=== PATIENT | female | born 1970 | race Caucasian/White ===

== ENCOUNTER 2016-03-16 10:42 | Emergency (ER) | payer OTHER ==
[~2016-03-16] VITALS: Ht 170.2 cm; Wt 105.5 kg
[~2016-03-16 10:42] MED LIST: ALPR-385 PO; CLC150 PO; IBUP-1050 PO; INSDGIPEN SC; LSN/20125 PO; NRN100 PO; NVLGIPEN SC; VNTHFA/IN INH
[2016-03-16 10:50] VITALS: TEMP 37.4; Ht 170.2 cm; Wt 105.5 kg
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
[2016-03-16 11:33] LABS: BASO % 0.7 %; BASO ABS # 0.09 K/uL (0-0.2); COMPLETE YES; EOS % 1.9 %; HEMATOCRIT 45.2 % (37-47); IG% 0.3 %; LYMPH % 23.1 %; LYMPH ABS # 2.89 K/uL (1.2-3.4); MEAN CELL VOLUME 79.4 fL (80-100); MEAN CORPUSCULAR HEMOGLOBIN 27.6 pg (25-34); MEAN CORPUSCULAR HGB CONC 34.7 g/dl (32-36); MONO % 4.5 %; NEUT % 69.5 %; PLATELET COUNT 309 K/uL (130-400); RED BLOOD COUNT 5.69 M/uL (4.2-5.4); WHITE BLOOD COUNT 12.53 K/uL (4.8-10.8)
[2016-03-16 11:58] LABS: ALT/SGPT 23 U/L (12-78); AST/SGOT 11 U/L (15-37); BLOOD UREA NITROGEN 10 mg/dl (7-18); BUN/CREATININE RATIO 14.6 (10-20); CALCIUM 10.2 mg/dl (8.5-10.1); CARBON DIOXIDE 24 mmol/L (21-32); CHLORIDE 106 mmol/L (98-107); CREATININE 0.71 mg/dl (0.60-1.20); GLUCOSE 202 mg/dl (70-99); POTASSIUM 4.2 mmol/L (3.5-5.1); SODIUM 140 mmol/L (136-145)
[2016-03-16 12:01] LABS: ALKALINE PHOSPHATASE 132 U/L (45-117)
[2016-03-16 12:11] LABS: ACETAMINOPHEN < 2 ug/ml (10-30)
[2016-03-16 12:18] LABS: MANUAL MICROSCOPIC REQUIRED? YES; URINE APPEARANCE CLEAR (CLEAR); URINE BILIRUBIN NEG (NEG); URINE COLOR YELLOW; URINE NITRITE NEG (NEG); URINE SPECIFIC GRAVITY >= 1.030 (1.000-1.030); UROBILINOGEN NEG (NEG)
[2016-03-16 12:20] LABS: REVIEW REQ? NO
[2016-03-16 12:40] LABS: URINE BACTERIA 1+ (NEG); URINE MUCUS PRESENT (NONE PRSENT); URINE RBC 0-4 /hpf (0-4)
[2016-03-16 12:42] LABS: ZZUR CULT IF INDIC CLEAN CATCH YES
[2016-03-16 13:40] LABS: BENZODIAZEPINE, URINE NEG (NEG); COCAINE,URINE NEG (NEG); PHENCYCLIDINE, URINE NEG (NEG)
[2016-03-16 16:30] VITALS: BP 128/84; PULSE 86; O2SAT 95
[2016-03-22 11:40] LABS: SYNTHETIC CANNABINOIDS QL URIN NEGATIVE (Negative)
== END 2016-03-16 17:00 ==
LOC: C.EDB 10:47 → C.EDA 17:00
DX: R45.851 Suicidal ideations (principal); T43.8X2A Poisoning by other psychotropic drugs, intentional self-harm, initial encounter; T45.0X2A Poisoning by antiallergic and antiemetic drugs, intentional self-harm, initial encounter; T38.3X2A Poisoning by insulin and oral hypoglycemic [antidiabetic] drugs, intentional self-harm, initial encounter; J45.909 Unspecified asthma, uncomplicated; L30.9 Dermatitis, unspecified; L40.9 Psoriasis, unspecified; F17.200 Nicotine dependence, unspecified, uncomplicated; Z82.49 Family history of ischemic heart disease and other diseases of the circulatory system; Z84.1 Family history of disorders of kidney and ureter; Z82.0 Family history of epilepsy and other diseases of the nervous system

== ENCOUNTER 2016-05-21 03:50 | Inpatient (IN) | payer OTHER ==
[~2016-05-21] VITALS: Ht 170.2 cm; Wt 111.9 kg
[~2016-05-21 03:50] MED LIST changes: -CLC150 PO
[2016-05-21] MEDS ORDERED: KETOROLAC TROMETHAMINE 30 MG/ML VIAL IV STA (04:22)
--- NOTE | 2016-05-21 04:32 | EMERGENCY ROOM VISIT NOTE ---
History Report prepared by Cindy: Karina Moran Under the Supervision of: Dr. Camilla Champagne D.O. First contact with patient: 04:07 Chief Complaint: SKIN PROBLEM Stated Complaint: SKIN PROBLEM History of Present Illness The patient is a 45 year old female who presents to the Emergency Room with complaints of constant skin problem beginning a few days ago. The patient states that she has had 3 episodes of cellulitis previously and today it is worse than it has been before. Today she complains of head itchiness, neck itchiness and redness, heat, and leg pain that she believes may be diabetic neuropathy. She notes that 2 days ago her doctor called in Clindamycin for the infection and they told her to come in here if it worsened. The patient reports that controlling her blood sugar with the infection has been difficult. Source of History: patient Onset: a few days ago Position: head Quality: other (redness, itchiness) Timing: constant Note: Pt notes redness, itchiness, heat, leg pain. Review of Systems See HPI for pertinent positives & negatives. A total of 10 systems reviewed and were otherwise negative. Past Medical & Surgical Medical Problems: (1) Asthma (2) Eczema (3) Psoriasis Family History Gallbladder disease Heart disease Hypertension Kidney disease Kidney stones Seizures Social History Smoking Status: Current Every Day Smoker Alcohol Use: occasionally Drug Use: none Marital Status: single Occupation Status: unemployed Current/Historical Medications Scheduled Clindamycin HCl (Clindamycin HCl), 2 CAP PO TID Fluoxetine (Prozac), 40 MG PO DAILY Insulin Aspart (Novolog Flexpen), 6 UNITS SC AC Insulin Glargine (Lantus Solostar), 20 UNIT SC QAM Trazodone Hcl (Trazodone), 100 MG PO HS Scheduled PRN Albuterol Hfa (Ventolin Hfa), 2 PUFFS INH QID PRN for Asthma Symptoms Alprazolam (Xanax), 1 MG PO TID PRN for Anxiety Ibuprofen (Advil), 600-800 MG PO Q8 PRN for Pain or Fever Allergies Coded Allergies: Avocado (Verified Allergy, Severe, SWELLING OF THROAT,ITCHING, 05/21/16) Banana (Verified Allergy, Severe, THROAT SWELLING,ITCHING, 05/21/16) Latex1 -Allergic Contact Dermititis (Verified Adverse Reaction, Mild, RASH ,ITCHING, 05/21/16) Physical Exam Vital Signs Date Time Temp Pulse Resp B/P Pulse Ox O2 Delivery O2 Flow Rate FiO2 05/21/16 08:01 87 16 123/97 97 Room Air 05/21/16 06:35 94 18 150/86 96 Room Air 05/21/16 05:15 84 18 134/99 96 Room Air 05/21/16 03:53 36.8 98 18 153/80 97 Room Air Physical Exam HEENT: Head - open wound to the top of the head, multiple areas of erythema about the face and the scalp. Multiple areas of cellulitis about the scalp and the forehead Pupils are equal, round, and reactive to light. Extraocular eye muscles are intact, and sclera are anicteric. Nose - moist nasal mucosa without discharge. Mouth - moist buccal mucosa. Oropharynx is nonerythematous and there is no tonsillar exudate or edema noted. Neck: Supple; no JVD, nuchal rigidity, cervical lymphadenopathy. Heart: Regular rate and rhythm. There is a normal S1 and S2 with no murmurs, clicks, or gallops appreciated. Lungs: Clear to auscultation bilaterally with no wheezes, rales, or rhonchi. Abdomen: Soft, completely nontender, nondistended, with good bowel sounds. There are no palpable pulsatile masses or hepatosplenomegaly. There is no guarding, rigidity, or rebound noted. Extremities: No evidence of cyanosis, clubbing, or edema. There are easily palpable peripheral pulses. Skin: warm and dry with good turgor and no rashes. Medical Decision & Procedures Laboratory Results 05/21/16 04:35 Red Blood Count 5.92, Mean Corpuscular Volume 79.4, Mean Corpuscular Hemoglobin 27.4, Mean Corpuscular Hemoglobin Concent 34.5, Mean Platelet Volume 10.3, Neutrophils (%) (Auto) 81.7, Lymphocytes (%) (Auto) 12.0, Monocytes (%) (Auto) 5.3, Eosinophils (%) (Auto) 0.2, Basophils (%) (Auto) 0.3, Neutrophils # (Auto) 11.31, Lymphocytes # (Auto) 1.66, Monocytes # (Auto) 0.73, Eosinophils # (Auto) 0.03, Basophils # (Auto) 0.04 05/21/16 04:35 Test 05/21/16 04:35 White Blood Count 13.84 K/uL (4.8-10.8) Red Blood Count 5.92 M/uL (4.2-5.4) Hemoglobin 16.2 g/dL (12.0-16.0) Hematocrit 47.0 % (37-47) Mean Corpuscular Volume 79.4 fL (80-100) Mean Corpuscular Hemoglobin 27.4 pg (25-34) Mean Corpuscular Hemoglobin Concent 34.5 g/dl (32-36) Platelet Count 228 K/uL (130-400) Mean Platelet Volume 10.3 fL (7.4-10.4) Neutrophils (%) (Auto) 81.7 % Lymphocytes (%) (Auto) 12.0 % Monocytes (%) (Auto) 5.3 % Eosinophils (%) (Auto) 0.2 % Basophils (%) (Auto) 0.3 % Neutrophils # (Auto) 11.31 K/uL (1.4-6.5) Lymphocytes # (Auto) 1.66 K/uL (1.2-3.4) Monocytes # (Auto) 0.73 K/uL (0.11-0.59) Eosinophils # (Auto) 0.03 K/uL (0-0.5) Basophils # (Auto) 0.04 K/uL (0-0.2) RDW Standard Deviation 42.2 fL (36.4-46.3) RDW Coefficient of Variation 14.6 % (11.5-14.5) Immature Granulocyte % (Auto) 0.5 % Immature Granulocyte # (Auto) 0.07 K/uL (0.00-0.02) Prothrombin Time 9.9 SECONDS (9.0-12.0) Prothromb Time International Ratio 0.9 (0.9-1.1) Activated Partial Thromboplast Time 34.9 SECONDS (21.0-31.0) Partial Thromboplastin Ratio 1.3 Anion Gap 9.0 mmol/L (3-11) Est Creatinine Clear Calc Drug Dose 112.2 ml/min Estimated GFR () 101.8 Estimated GFR (Non- 87.8 BUN/Creatinine Ratio 21.3 (10-20) Bedside Lactic Acid Venous 1.03 mmol/L (0.90-1.70) Calcium Level 9.8 mg/dl (8.5-10.1) Total Bilirubin 0.3 mg/dl (0.2-1) Aspartate Amino Transf (AST/SGOT) 18 U/L (15-37) Alanine Aminotransferase (ALT/SGPT) 38 U/L (12-78) Alkaline Phosphatase 126 U/L (45-117) Total Protein 7.8 gm/dl (6.4-8.2) Albumin 3.4 gm/dl (3.4-5.0) Globulin 4.4 gm/dl (2.5-4.0) Albumin/Globulin Ratio 0.8 (0.9-2) Laboratory results per my review. Medications Administered Medications (Trade) Dose Ordered Sig/Candelaria Route Start Time Stop Time Status Last Admin Dose Admin Ketorolac Tromethamine (Toradol Inj) 30 mg NOW STAT IV 05/21/16 04:22 05/21/16 04:23 DC 05/21/16 04:53 30 MG Piperacillin Sod/ Tazobactam Sod (Zosyn Iv) 4.5 gm NOW STAT IV 05/21/16 05:05 05/21/16 05:07 DC 05/21/16 05:14 4.5 GM Vancomycin HCl (Vancomycin 1gm/ 270ml Nss) 1 gm STK-MED ONCE .ROUTE 05/21/16 05:28 05/21/16 05:31 DC 05/21/16 05:51 1 GM Morphine Sulfate (MoRPHine SULFATE INJ) 4 mg NOW STAT IV 05/21/16 05:55 05/21/16 05:56 DC 05/21/16 06:35 4 MG Ondansetron HCl 4 mg 4 mg NOW STAT IV 05/21/16 05:55 05/21/16 05:56 DC 05/21/16 06:34 4 MG Sodium Chloride (Nss 1000ml) 1,000 ml @ 125 mls/hr Q8H IV 05/21/16 08:45 06/20/16 08:44 05/21/16 18:24 125 MLS/HR Ketorolac Tromethamine (Toradol Inj) 30 mg Q6H PRN IV 05/21/16 08:45 05/26/16 08:44 05/21/16 17:03 30 MG Procedure 0422: Toradol Inj 30mg IV. 0505: Vancomycin HCl 1000mg/Sodium Chloride 270ml @ 125mls/hr IV, Zosyn IV 4.5gm IV. 0528: Vancomycin HCl 1gm IV. 0555: Zofran Inj 4mg IV, Morphine Sulfate 4mg IV. ED Course 0407: Past medical records reviewed. The patient was evaluated in room B5. A complete history and physical exam was performed. A septic protocol was performed. 0422: Toradol Inj 30mg IV. 0505: Vancomycin HCl 1000mg/Sodium Chloride 270ml @ 125mls/hr IV, Zosyn IV 4.5gm IV. 0610: The patient is resting currently. I reviewed the results with her. 0707: Discussed the patient's case with Cassidy Saravia PA-C of [facility]. The patient will be evaluated for further management. 0711: The patient is pain-free but hungry. 0714: Upon reevaluation, I discussed findings and results with the patient. She verbalized agreement of the treatment plan. I spoke with Baljeet of the [facility] Hospitalist Service. The patient will be evaluated for further management and care. Medical Decision The patient is a 45 year old female who presents to the ED with skin issues. Differential diagnosis includes scalp cellulitis, exacerbation of eczema, sepsis , wound infection. LABS: WBC 13.8 Hemoglobin 16.2 Hematocrit 47 81% neutrophils lactic acid 1.0 294 glucose normal renal function and LFTs Normal Coags This is a 45-year-old female patient with a history of scalp and facial cellulitis over the past one year. The patient has required one previous admission to the hospital for this. She contacted her infectious disease doctor a couple days ago stating that her symptoms were returning. They called in a prescription for clindamycin. The patient has been taking that in the symptoms have worsened. The patient cut her hair off so that she could see the cellulitis a bit better on her scalp. Since the patient is failing outpatient therapy, I have started her on IV antibiotics. The patient required IV analgesia for the discomfort in her head. I discussed the case with the [facility] hospitalist and they will evaluate for further management. Consults Time Called: [phone] Consulting Physician: Cassidy Saravia PA-C - [facility] Returned Call: [phone] Discussed the patient's case. The patient will be evaluated for further management. Impression Primary Impression: Facial cellulitis Additional Impression: Diabetes mellitus with hyperglycemia Scribe Attestation The scribe's documentation has been prepared under my direction and personally reviewed by me in its entirety. I confirm that the note above accurately reflects all work, treatment, procedures, and medical decision making performed by me. Departure Information Dispostion Being Evaluated By Hospitalist Referrals No Doctor, Assigned (PCP) Patient Instructions My [facility] Problem Qualifiers
[2016-05-21 04:57] LABS: BASO % 0.3 %; BASO ABS # 0.04 K/uL (0-0.2); COMPLETE YES; EOS % 0.2 %; IG% 0.5 %; LYMPH ABS # 1.66 K/uL (1.2-3.4); MEAN CELL VOLUME 79.4 fL (80-100); MEAN CORPUSCULAR HEMOGLOBIN 27.4 pg (25-34); MEAN CORPUSCULAR HGB CONC 34.5 g/dl (32-36); MEAN PLATELET VOLUME 10.3 fL (7.4-10.4); MONO % 5.3 %; NEUT % 81.7 %; PLATELET COUNT 228 K/uL (130-400); RED BLOOD COUNT 5.92 M/uL (4.2-5.4); WHITE BLOOD COUNT 13.84 K/uL (4.8-10.8)
[2016-05-21 05:02] LABS: INR 0.9 (0.9-1.1); PARTIAL THROMBOPLASTIN RATIO 1.3; PROTHROMBIN TIME (PATIENT) 9.9 SECONDS (9.0-12.0)
[2016-05-21] MEDS ORDERED: CLIN1CAP51 PO (05:02)
[2016-05-21] MEDS ORDERED: FLUO40CA8 PO (05:02)
[2016-05-21] MEDS ORDERED: TRAZ100T29 PO (05:02)
[2016-05-21] MEDS ORDERED: VANCOMYCIN INJ 1,000 MG in SODIUM CHLORIDE 0.9% 250ML 250 ML IV STA (05:05)
[2016-05-21] MEDS ORDERED: PIPERACILLIN/TAZOBACTAM 4.5 GM/100ML D5W IV STA (05:05)
[2016-05-21 05:17] LABS: BUN/CREATININE RATIO 21.3 (10-20); CALCIUM 9.8 mg/dl (8.5-10.1); CREATININE 0.8 mg/dl (0.60-1.20); POTASSIUM 4.2 mmol/L (3.5-5.1)
[2016-05-21 05:20] LABS: ALB/GLOB RATIO 0.8 (0.9-2)
[2016-05-21] MEDS ORDERED: VANCOMYCIN 1GM/270ML NSS ONE (05:28)
[2016-05-21] MEDS ORDERED: MoRPHine SULFATE 4 MG/ML 1 ML CARP\\VIAL IV STA (05:55)
[2016-05-21] MEDS ORDERED: ONDANSETRON INJ 2 MG/ML 2 ML VIAL IV STA (05:55)
[2016-05-21] MEDS ORDERED: ALBUTEROL HFA 8 GM INHALER INH PRN (08:45)
[2016-05-21] MEDS ORDERED: ALUMINUM/MAGNESIUM/SIMETH (MAALOX MAX) 30 ML UDC PO PRN (08:45)
[2016-05-21] MEDS ORDERED: MAGNESIUM HYDROXIDE SUSP 30 ML UDC PO PRN (08:45)
[2016-05-21] MEDS ORDERED: ONDANSETRON INJ 2 MG/ML 2 ML VIAL IV PRN (08:45)
[2016-05-21] MEDS ORDERED: POLYETHYLENE (MIRALAX) 17 GM PACK PO PRN (08:45)
[2016-05-21] MEDS ORDERED: MoRPHine SULFATE 2 MG/ML CARP IV PRN (08:45)
[2016-05-21] MEDS ORDERED: ALPRAZOLAM 0.5 MG TAB PO PRN (08:45)
[2016-05-21] MEDS ORDERED: ACETAMINOPHEN 325 MG TAB PO PRN (08:45)
[2016-05-21] MEDS ORDERED: CLINDAMYCIN HCL 150 MG CAP PO SCH (09:00)
[2016-05-21] MEDS ORDERED: PHARMACY GLYCEMIC MGMT CONSULT SCH (09:04)
--- NOTE | 2016-05-21 09:11 | History and Physical ---
History & Physical Date & Time of Service: May 21, 2016 at 08:52 Chief Complaint: Skin Problem Primary Care Physician: No Doctor, Assigned History of Present Illness Source: patient, clinic records, hospital records Patient is a pleasant 45 y/o female, with PMHx of T2DM, anxiety/depression, asthma, and recurrent facial/head cellulitis, who reported to the ED because of worsening/increasing pain of facial/head cellulitis. Recurrent head/facial cellulitis started in September of 2015. At that time, she was treated outpatient with oral antibiotics. In December 2015, patient was admitted to the hospital; she was treated w/ IV Vancomycin + Zosyn x1 day, then transitioned to oral Clindamycin x2 weeks at discharge. According to records, she was to follow up with ID 2 weeks after discharge, but did not. On 05/19, patient was seen by ID, Jessica Martinez, and placed on Clindamycin 300 mg PO TID. Patient states she has been taking her medication as prescribed. However, she believes cellulitis is spreading. Additionally, patient has now started to experience increased pain. Patient was treated with Morphine 4 mg IV and Toradol 30 mg IV in ED, with continued complaints of pain. Patient states she is unsure of the cause for her recurrent infection. She does admit to eczema. +pruritus of scalp. Patient denies any fever, chills, sweats, lightheadedness, dizziness, vision changes, CP, palpitations, edema, SOB, wheezing, cough, abdominal pain, nausea, vomiting, diarrhea, urinary symptoms, melena, numbness/tingling, weakness, muscle/joint pain, anxiety/depression, active bleeding. Past Medical/Surgical History Medical Problems: 1. Asthma 2. Eczema 3. T2DM 4. Recurrent head/facial cellulitis Family History Gallbladder disease Heart disease Hypertension Kidney disease Kidney stones Seizures Social History Smoking Status: Current Every Day Smoker Drug Use: none Marital Status: single Occupational Status: unemployed Immunizations History of Influenza Vaccine: Unknown History of Tetanus Vaccine?: Unknown History of Pneumococcal: Unknown History of Hepatitis B Vaccine: Unknown Multi-Drug Resistant Organisms History of MDRO: No Allergies Coded Allergies: Avocado (Verified Allergy, Severe, SWELLING OF THROAT,ITCHING, 05/21/16) Banana (Verified Allergy, Severe, THROAT SWELLING,ITCHING, 05/21/16) Latex1 -Allergic Contact Dermititis (Verified Adverse Reaction, Mild, RASH ,ITCHING, 05/21/16) Home Medications Scheduled Clindamycin HCl (Clindamycin HCl), 2 CAP PO TID Fluoxetine (Prozac), 40 MG PO DAILY Insulin Aspart (Novolog Flexpen), 6 UNITS SC AC Insulin Glargine (Lantus Solostar), 20 UNIT SC QAM Trazodone Hcl (Trazodone), 100 MG PO HS Scheduled PRN Albuterol Hfa (Ventolin Hfa), 2 PUFFS INH QID PRN for Asthma Symptoms Alprazolam (Xanax), 1 MG PO TID PRN for Anxiety Ibuprofen (Advil), 600-800 MG PO Q8 PRN for Pain or Fever Physical Exam Vital Signs Date Time Temp Pulse Resp B/P Pulse Ox O2 Delivery O2 Flow Rate FiO2 05/21/16 08:01 87 16 123/97 97 Room Air 05/21/16 06:35 94 18 150/86 96 Room Air 05/21/16 05:15 84 18 134/99 96 Room Air 05/21/16 03:53 36.8 98 18 153/80 97 Room Air General Appearance: no apparent distress, + obese Head: atraumatic, + pertinent finding (noted lesion to posterior center scalp and lateral mid-left scalp- scabbed over, no obvious warmth or drainage; noted mild erythema of mid-lateral right forehead) Eyes: normal inspection, PERRL ENT: hearing grossly normal Neck: supple Respiratory/Chest: lungs clear, no respiratory distress, no accessory muscle use Cardiovascular: regular rate, rhythm Abdomen/GI: normal bowel sounds, non tender, soft Back: normal inspection Extremities/Musculoskelatal: no calf tenderness, no pedal edema Neurologic/Psych: alert, normal mood/affect, oriented x 3 Skin: normal color, warm/dry, no rash Diagnostics Laboratory Results Results Past 24 Hours Test 05/21/16 04:35 Range/Units White Blood Count 13.84 4.8-10.8 K/uL Red Blood Count 5.92 4.2-5.4 M/uL Hemoglobin 16.2 12.0-16.0 g/dL Hematocrit 47.0 37-47 % Mean Corpuscular Volume 79.4 80-100 fL Mean Corpuscular Hemoglobin 27.4 25-34 pg Mean Corpuscular Hemoglobin Concent 34.5 32-36 g/dl Platelet Count 228 130-400 K/uL Mean Platelet Volume 10.3 7.4-10.4 fL Neutrophils (%) (Auto) 81.7 % Lymphocytes (%) (Auto) 12.0 % Monocytes (%) (Auto) 5.3 % Eosinophils (%) (Auto) 0.2 % Basophils (%) (Auto) 0.3 % Neutrophils # (Auto) 11.31 1.4-6.5 K/uL Lymphocytes # (Auto) 1.66 1.2-3.4 K/uL Monocytes # (Auto) 0.73 0.11-0.59 K/uL Eosinophils # (Auto) 0.03 0-0.5 K/uL Basophils # (Auto) 0.04 0-0.2 K/uL RDW Standard Deviation 42.2 36.4-46.3 fL RDW Coefficient of Variation 14.6 11.5-14.5 % Immature Granulocyte % (Auto) 0.5 % Immature Granulocyte # (Auto) 0.07 0.00-0.02 K/uL Prothrombin Time 9.9 9.0-12.0 SECONDS Prothromb Time International Ratio 0.9 0.9-1.1 Activated Partial Thromboplast Time 34.9 21.0-31.0 SECONDS Partial Thromboplastin Ratio 1.3 Sodium Level 132 136-145 mmol/L Potassium Level 4.2 3.5-5.1 mmol/L Chloride Level 100 98-107 mmol/L Carbon Dioxide Level 23 21-32 mmol/L Anion Gap 9.0 3-11 mmol/L Blood Urea Nitrogen 17 7-18 mg/dl Creatinine 0.80 0.60-1.20 mg/dl Est Creatinine Clear Calc Drug Dose 112.2 ml/min Estimated GFR () 101.8 Estimated GFR (Non- 87.8 BUN/Creatinine Ratio 21.3 10-20 Random Glucose 294 70-99 mg/dl Bedside Lactic Acid Venous 1.03 0.90-1.70 mmol/L Calcium Level 9.8 8.5-10.1 mg/dl Total Bilirubin 0.3 0.2-1 mg/dl Aspartate Amino Transf (AST/SGOT) 18 15-37 U/L Alanine Aminotransferase (ALT/SGPT) 38 12-78 U/L Alkaline Phosphatase 126 45-117 U/L Total Protein 7.8 6.4-8.2 gm/dl Albumin 3.4 3.4-5.0 gm/dl Globulin 4.4 2.5-4.0 gm/dl Albumin/Globulin Ratio 0.8 0.9-2 Microbiology Results 05/21/16 Blood Culture, Received Pending 05/21/16 Blood Culture, Received Pending Impression Assessment and Plan 45 y/o female, with PMHx of T2DM, anxiety/depression, asthma, and recurrent facial/head cellulitis, who reported to the ED because of worsening/increasing pain of facial/head cellulitis: Recurrent head/facial cellulitis: - Admit med/surg - IV Vancomycin + Zosyn x1 dose in ED. - Continue Clindamycin 300 mg TID (started on 05/19 by ID) until seen by ID - IV Morphine + Toradol PRN for pain control - BCx pending - Consult ID, appreciate recommendations - Follow CBC/PRP T2DM: - ha1c in 12/2015- 11.5%. Recheck ha1c - Continue Lantus 20 u QAM - BSG ACHS w/ sliding insulin scale - Consult pharmacy for glycemic management Asthma: Continue home inhalers Anxiety/Depression: - Continue Prozac 40 mg PO daily and Xanax 1 mg PO TID PRN - Follows w/ Dr. Zamorano Insomnia: Continue Trazodone 100 mg PO HS GI Prophylaxis: Maalox PRN, IV Zofran PRN, Colace and/or Milk of Mag PRN DVT prophylaxis: Lovenox 40 mg SQ q24 hrs, JON and SCDs Code Status: LEVEL I, FULL Dispo: From home. No discharge needs anticipated I personally evaluated this patient and performed a physical exam. I reviewed the orders. I read this note completed by Cassidy Garcia PA-C and agree with the contents in entirety. The patients headache and neck pain seemed out of context to the degree of irritation from the cellulitis. I do see that she had a CT scan of the head within 2 months. This finding prompted me to order an MRI of the Brain. Level of Care Med/Surg Resuscitation Status FULL RESUSCITATION VTE Prophylaxis VTE Risk Assessment Done? Y/N: Yes Risk Level: Low Given or contraindicated: Enoxaparin (Lovenox)SQ, T.E.D. Stockings, SCD's
[2016-05-21 09:30] VITALS: BP 122/76; PULSE 99; TEMP 37.7; O2SAT 95; O2SAT 96; BMI 38.6
[2016-05-21] MEDS: KETOROLAC TROMETHAMINE 30 MG/ML VIAL IV PRN ×2 (10:04→17:03)
[2016-05-21] MEDS: SODIUM CHLORIDE 0.9% 1000ML 1,000 ML IV SCH ×2 (10:05→18:24)
[2016-05-21] MEDS ORDERED: CLINDAMYCIN IV 300 MG in DEXTROSE 5% 50ML 50 ML IV SCH (10:30)
[2016-05-21] MEDS: FLUOXETINE HCL 20 MG CAP PO SCH (11:24)
[2016-05-21] MEDS: ENOXAPARIN 40 MG/0.4 ML SYR SQ SCH (11:25)
[2016-05-21] MEDS: INSULIN ASPART 100 UNITS/ML 3 ML PEN SC SCH ×3 (12:42→20:36)
[2016-05-21] MEDS: INSULIN GLARGINE SOLOSTAR 100 UNITS/ML 3 ML PEN SC SCH (12:43)
[2016-05-21] MEDS: HYDROmorphone INJ 2 MG/ML SYR/VIAL IV PRN ×2 (13:23→18:23)
[2016-05-21] MEDS: DAPTOmycin IV 500 MG in SODIUM CHLORIDE 0.9% 50ML 50 ML IV SCH (14:44)
[2016-05-21 15:39] VITALS: BP 124/90; PULSE 88; TEMP 36.6; O2SAT 93
[2016-05-21] MEDS ORDERED: LORAZEPAM INJ 0.5 MG in SYRINGE 0.75 ML IV PRN (15:45)
--- NOTE | 2016-05-21 15:58 | Pharmacy Progress Note ---
Glycemic Control Intl Consult Date of Service May 21, 2016. Scope Glycemic Pharmacist consulted by HARRIETT Valente on 05/21/16 for glycemic control and to write orders per [facility] inpatient glycemic control protocol Objective Weight (Kilograms): 111.900 Accuchecks BSG (last 24hrs): Test 05/21/16 04:35 05/21/16 11:24 Random Glucose 294 mg/dl (70-99) Bedside Glucose 242 mg/dl (70-90) Laboratory Data (last 24hrs) Test 05/21/16 04:35 Anion Gap 9.0 mmol/L BUN/Creatinine Ratio 21.3 Blood Urea Nitrogen 17 mg/dl Creatinine 0.80 mg/dl Potassium Level 4.2 mmol/L Sodium Level 132 mmol/L White Blood Count 13.84 K/uL Red Blood Count 5.92 M/uL Hemoglobin 16.2 g/dL Hematocrit 47.0 % Mean Corpuscular Volume 79.4 fL Mean Corpuscular Hemoglobin 27.4 pg Mean Corpuscular Hemoglobin Concent 34.5 g/dl Platelet Count 228 K/uL Mean Platelet Volume 10.3 fL Neutrophils (%) (Auto) 81.7 % Lymphocytes (%) (Auto) 12.0 % Monocytes (%) (Auto) 5.3 % Eosinophils (%) (Auto) 0.2 % Basophils (%) (Auto) 0.3 % Neutrophils # (Auto) 11.31 K/uL Lymphocytes # (Auto) 1.66 K/uL Monocytes # (Auto) 0.73 K/uL Eosinophils # (Auto) 0.03 K/uL Basophils # (Auto) 0.04 K/uL Recent Pertinent Medications Outpatient Anti-diabetic Regimen: * Lantus 20 units qam, Novolog 6 units before each meal * A1c = pending 05/22/16 The patient is currently receiving: * Basal insulin: Lantus 20 units every am, today's dose given later than usual due to admission * Correctional Insulin: Novolog Correction per scale ACHS Goal Range: Low 140 mg/dL - High 180 mg/dL Correction Factor: 30 mg/dL/unit * Prandial insulin: Per carb ratio of 1 unit per 9 grams CHO consumed * Oral Agents: none Risk Factors for Insulin Resistance: * Steroids: no * Infection: L ear cellulitis, on daptomycin (had single doses of Zosyn, vancomycin, clindamycin) * Pressors: no * IVF: NS @125 ml/hr * Recent Surgery: no * Diet: type 2 diabetic AHA * Mechanical Ventilation: no Assessment & Plan ASSESSMENT: * ADA & AACE recommend a goal blood sugar range 140-180 mg/dl for the majority of critically ill & non-critically ill patients. However, more stringent targets may be selected in individual cases. * 45 yo type 2 diabetic, A1c pending to assess recent glycemic control. Will continue home dose of Lantus, add Novolog correction and carb ratio based on her estimated daily dose. Will decrease goal range for non-critical, non-ICU patient. Will reassess in am. PLAN FOR INPATIENT GLYCEMIC CONTROL: * Continuing Lantus 20 units SQ qam * Continuing correction factor 30 mg/dl/unit * Continuing carb ratio 1 unit per 9 grams CHO consumed * Changing goal range to Low 120 mg/dL - High 160 mg/dL * Please note that the plan above was derived based on current level of insulin resistance and hospital stress. These recommendations are appropriate for inpatient admission only. Plan of care upon discharge will need to be reassessed to avoid potential outpatient hypo/hyperglycemia. Thank you.
[2016-05-21 16:00] VITALS: O2SAT 93
[2016-05-21] MEDS ORDERED: LORAZEPAM INJ 1 MG in SYRINGE 0.5 ML IV PRN (16:15)
--- NOTE | 2016-05-21 17:54 | Medical Consult ---
Consultation Date of Consultation: May 21, 2016. Attending Physician: Tanner Burnette DO Reason for Consultation: Recurrent facial cellulitis History of Present Illness 45-year-old female with history of diabetes mellitus, bipolar disorder, with history of recurrent facial cellulitis, recently admitted with periorbital cellulitis, requiring IV antibiotics, responding well, but now developing increasing redness, swelling, pain, erythema, involving mostly the left side of her face, but with some discomfort in her scalp and left forehead. She was seen late last week for above complaints, and started on oral clindamycin, but after 2 days has developed worsening pain, swelling, erythema, and admitted to the hospital. Thus far cultures are negative, patient currently being treated with clindamycin. Has frontal headache, no other new neurologic complaints. Past Medical/Surgical History Medical Problems: (1) Asthma exacerbation Status: Acute (2) Diabetes mellitus with hyperglycemia Status: Acute (3) Diabetes mellitus, new onset Status: Acute (4) Facial cellulitis Status: Acute (5) Facial cellulitis Status: Acute (6) Medication overdose Status: Acute (7) Pleuritic chest pain Status: Acute (8) Suicidal ideation Status: Acute Medical Problems: (1) Asthma (2) Eczema (3) Psoriasis Family History Gallbladder disease Heart disease Hypertension Kidney disease Kidney stones Seizures Social History Smoking Status: Current Every Day Smoker Drug Use: none Marital Status: single Occupation Status: unemployed Allergies Coded Allergies: Avocado (Verified Allergy, Severe, SWELLING OF THROAT,ITCHING, 05/21/16) Banana (Verified Allergy, Severe, THROAT SWELLING,ITCHING, 05/21/16) Latex1 -Allergic Contact Dermititis (Verified Adverse Reaction, Mild, RASH ,ITCHING, 05/21/16) Current Inpatient Medications Current Inpatient Medications Medications (Trade) Dose Ordered Sig/Candelaria Route Start Time Stop Time Status Last Admin Dose Admin Enoxaparin Sodium (Lovenox Inj) 40 mg Q24H SQ 05/21/16 09:00 06/20/16 08:59 05/21/16 11:25 40 MG Acetaminophen (Tylenol Tab) 650 mg Q4H PRN PO 05/21/16 08:45 06/20/16 08:44 Al Hydrox/Mg Hydrox/Simethicone (Maalox Max Susp) 15 ml Q4H PRN PO 05/21/16 08:45 06/20/16 08:44 Magnesium Hydroxide (Milk Of Magnesia Susp) 30 ml Q6H PRN PO 05/21/16 08:45 06/20/16 08:44 Polyethylene (Miralax Powder Packet) 17 gm DAILY PRN PO 05/21/16 08:45 06/20/16 08:44 Ondansetron HCl (Zofran Inj) 4 mg Q6H PRN IV 05/21/16 08:45 06/20/16 08:44 Albuterol (Ventolin Hfa Inhaler) 2 puffs QID PRN INH 05/21/16 08:45 06/20/16 08:44 Alprazolam (Xanax Tab) 1 mg TID PRN PO 05/21/16 08:45 06/20/16 08:44 Fluoxetine HCl (Prozac Cap) 40 mg DAILY PO 05/21/16 09:00 06/20/16 08:59 05/21/16 11:24 40 MG Insulin Glargine (Lantus Solostar Pen) 20 unit QAM SC 05/21/16 09:00 06/20/16 08:59 05/21/16 12:43 20 UNIT Trazodone HCl (Desyrel Tab) 100 mg HS PO 05/21/16 21:00 06/20/16 20:59 Insulin Aspart SLIDING SCALE G... ACHS SC 05/21/16 11:00 06/20/16 10:59 05/21/16 17:36 9 UNITS Sodium Chloride (Nss 1000ml) 1,000 ml @ 125 mls/hr Q8H IV 05/21/16 08:45 06/20/16 08:44 05/21/16 10:05 125 MLS/HR Ketorolac Tromethamine (Toradol Inj) 30 mg Q6H PRN IV 05/21/16 08:45 05/26/16 08:44 05/21/16 17:03 30 MG Miscellaneous Information (Consult Glycemic Management Pharmacy) 1 ea UD N/A 05/21/16 09:04 06/20/16 09:03 Hydromorphone HCl 1.5 mg 1.5 mg Q3HWA PRN IV 05/21/16 12:45 06/04/16 12:44 05/21/16 13:23 1.5 MG Daptomycin 500 mg/ Sodium Chloride 60 ml @ 100 mls/hr DAILY@1400 IV 05/21/16 15:00 05/31/16 13:59 05/21/16 14:44 100 MLS/HR Lorazepam 0.5 mg/ Syringe 1 ml @ 0.5 mls/min Q6 PRN IV 05/21/16 15:45 06/20/16 15:44 Lorazepam/Syringe (Ativan Inj/ Syringe) 1 ml @ 0.5 mls/min TODAY@1615 PRN IV 05/21/16 16:15 06/20/16 16:14 Review of Systems All systems were reviewed and are negative except as per HPI Physical Exam Date Time Temp Pulse Resp B/P Pulse Ox O2 Delivery O2 Flow Rate FiO2 05/21/16 16:00 93 Room Air 05/21/16 15:39 36.6 88 16 124/90 93 05/21/16 09:30 96 Room Air 05/21/16 09:30 37.7 99 17 122/76 95 Room Air 05/21/16 09:21 87 16 123/97 97 05/21/16 08:01 87 16 123/97 97 Room Air 05/21/16 06:35 94 18 150/86 96 Room Air 05/21/16 05:15 84 18 134/99 96 Room Air 05/21/16 03:53 36.8 98 18 153/80 97 Room Air General Appearance: WD/WN, no apparent distress Head: normocephalic, atraumatic Eyes: normal inspection, EOMI, sclerae normal ENT: normal ENT inspection, hearing grossly normal, pharynx normal Neck: supple, no adenopathy, thyroid normal, trachea midline Respiratory/Chest: chest non-tender, lungs clear, normal breath sounds, no respiratory distress Cardiovascular: regular rate, rhythm, no gallop, no murmur Abdomen/GI: normal bowel sounds, non tender, soft, no organomegaly Back: normal inspection, no CVA tenderness Extremities/Musculoskelatal: normal inspection, no calf tenderness, normal capillary refill, non-tender Neurologic/Psych: no motor/sensory deficits, alert, normal mood/affect, oriented x 3 Skin: warm/dry, + pertinent finding ( erythema involving forehead and, several erythematous scalp lesions) Lymphatic: no adenopathy Laboratory Results Date/Time Source Procedure Growth Status 3/26/17 04:40 Blood Blood Culture Pending Received 05/21/16 04:35 Blood Blood Culture Pending Received Last 24 Hours Test 05/21/16 04:35 05/21/16 11:24 05/21/16 16:15 White Blood Count 13.84 K/uL Red Blood Count 5.92 M/uL Hemoglobin 16.2 g/dL Hematocrit 47.0 % Mean Corpuscular Volume 79.4 fL Mean Corpuscular Hemoglobin 27.4 pg Mean Corpuscular Hemoglobin Concent 34.5 g/dl Platelet Count 228 K/uL Mean Platelet Volume 10.3 fL Neutrophils (%) (Auto) 81.7 % Lymphocytes (%) (Auto) 12.0 % Monocytes (%) (Auto) 5.3 % Eosinophils (%) (Auto) 0.2 % Basophils (%) (Auto) 0.3 % Neutrophils # (Auto) 11.31 K/uL Lymphocytes # (Auto) 1.66 K/uL Monocytes # (Auto) 0.73 K/uL Eosinophils # (Auto) 0.03 K/uL Basophils # (Auto) 0.04 K/uL RDW Standard Deviation 42.2 fL RDW Coefficient of Variation 14.6 % Immature Granulocyte % (Auto) 0.5 % Immature Granulocyte # (Auto) 0.07 K/uL Prothrombin Time 9.9 SECONDS Prothromb Time International Ratio 0.9 Activated Partial Thromboplast Time 34.9 SECONDS Partial Thromboplastin Ratio 1.3 Sodium Level 132 mmol/L Potassium Level 4.2 mmol/L Chloride Level 100 mmol/L Carbon Dioxide Level 23 mmol/L Anion Gap 9.0 mmol/L Blood Urea Nitrogen 17 mg/dl Creatinine 0.80 mg/dl Est Creatinine Clear Calc Drug Dose 112.2 ml/min Estimated GFR () 101.8 Estimated GFR (Non- 87.8 BUN/Creatinine Ratio 21.3 Random Glucose 294 mg/dl Bedside Lactic Acid Venous 1.03 mmol/L Calcium Level 9.8 mg/dl Total Bilirubin 0.3 mg/dl Aspartate Amino Transf (AST/SGOT) 18 U/L Alanine Aminotransferase (ALT/SGPT) 38 U/L Alkaline Phosphatase 126 U/L Total Protein 7.8 gm/dl Albumin 3.4 gm/dl Globulin 4.4 gm/dl Albumin/Globulin Ratio 0.8 Bedside Glucose 242 mg/dl 211 mg/dl Assessment & Plan 45-year-old with diabetes mellitus, with history of recurrent facial cellulitis , now with exacerbation not responding to oral clindamycin. Patient to be changed to IV daptomycin, with length of IV therapy to be determined by clinical response. Will likely need prolonged suppressive therapy for recurrent staph infection. Will follow.
[2016-05-21] MEDS: TRAZODONE HCL 100 MG TAB PO SCH (20:32)
[2016-05-22] MEDS: KETOROLAC TROMETHAMINE 30 MG/ML VIAL IV PRN (00:12)
[2016-05-22] MEDS: SODIUM CHLORIDE 0.9% 1000ML 1,000 ML IV SCH ×2 (00:22→07:43)
[2016-05-22] MEDS: HYDROmorphone INJ 2 MG/ML SYR/VIAL IV PRN ×2 (01:48→07:32)
[2016-05-22 07:42] LABS: HEMATOCRIT 41.7 % (37-47); MEAN CELL VOLUME 79.1 fL (80-100); MEAN CORPUSCULAR HEMOGLOBIN 26.4 pg (25-34); MEAN CORPUSCULAR HGB CONC 33.3 g/dl (32-36); MEAN PLATELET VOLUME 9.9 fL (7.4-10.4); PLATELET COUNT 217 K/uL (130-400); RED BLOOD COUNT 5.27 M/uL (4.2-5.4); WHITE BLOOD COUNT 11.81 K/uL (4.8-10.8)
[2016-05-22 07:47] LABS: BUN/CREATININE RATIO 18.3 (10-20); CALCIUM 9.9 mg/dl (8.5-10.1); CREATININE 0.71 mg/dl (0.60-1.20); POTASSIUM 4.3 mmol/L (3.5-5.1)
[2016-05-22 07:50] LABS: ESTIMATED AVERAGE GLUCOSE 275 mg/dl; HA1C FLAG Normal (Normal)
[2016-05-22 08:00] VITALS: O2SAT 93
[2016-05-22] MEDS: FLUOXETINE HCL 20 MG CAP PO SCH (08:48)
[2016-05-22] MEDS: ENOXAPARIN 40 MG/0.4 ML SYR SQ SCH ×2 (08:48→10:35)
[2016-05-22] MEDS: INSULIN ASPART 100 UNITS/ML 3 ML PEN SC SCH ×4 (08:52→21:09)
[2016-05-22] MEDS: INSULIN GLARGINE SOLOSTAR 100 UNITS/ML 3 ML PEN SC SCH (08:52)
[2016-05-22] MEDS: HYDROmorphone INJ 1 MG/ML SYR IV PRN ×3 (10:37→21:56)
--- NOTE | 2016-05-22 11:46 | Pharmacy Progress Note ---
Glycemic Control: Progress Nt Date of Service May 22, 2016. Scope Glycemic Pharmacist consulted for glycemic control and to write orders per [facility] inpatient glycemic control protocol. Objective Accuchecks BSG (last 24hrs): Test 05/21/16 16:15 05/21/16 19:50 05/22/16 06:55 05/22/16 07:27 Bedside Glucose 211 mg/dl (70-90) 172 mg/dl (70-90) 180 mg/dl (70-90) Random Glucose 177 mg/dl (70-99) Test 05/22/16 11:14 Bedside Glucose 127 mg/dl (70-90) Laboratory Data (last 24hrs) Test 05/22/16 06:55 Anion Gap 7.0 mmol/L BUN/Creatinine Ratio 18.3 Blood Urea Nitrogen 13 mg/dl Creatinine 0.71 mg/dl Hemoglobin A1c 11.2 % Potassium Level 4.3 mmol/L Sodium Level 133 mmol/L White Blood Count 11.81 K/uL HbA1c: Test 05/22/16 06:55 Hemoglobin A1c 11.2 % (4.5-5.6) H Recent Pertinent Medications Outpatient Anti-diabetic Regimen: * Lantus 20 units SQ AM * NovoLog 6 units SQ AC The patient is currently receiving: * Basal insulin: Lantus 20 units every 24 hours given in the morning * Correctional Insulin: Novolog Correction per scale ACHS Goal Range: Low 120 mg/dL - High 160 mg/dL Correction Factor: 30 mg/dL/unit * Prandial insulin: Per carb ratio of 1 unit per 9 grams CHO consumed Risk Factors for Insulin Resistance: * Infection * Diet * Baseline insulin resistance/high A1c Assessment & Plan ASSESSMENT: * 45yo T2DM with poor glycemic control as an outpatient per recent A1c * Tight glycemic control essential to facilitate infection healing and DM co- morbidities * Pt known to pharmacy from previous admissions/glycemic consults. Most recently 12/2015 when patient was diagnosed with T2DM * Pt has been requiring ~ 40 units of insulin over the past 24hrs with near- adequate control * BSGs elevated but trending downwards d/t insulin administration, abx streamlined, fluids, etc * ADA & AACE recommend a goal blood sugar range 140-180 mg/dl for the majority of critically ill & non-critically ill patients. However, more stringent targets may be selected in individual cases. Will utilize more stringent goal range of 110-140mg/dl based on age, short disease duration, & to facilitate infection healing. PLAN FOR INPATIENT GLYCEMIC CONTROL: * Continue Basal insulin with Lantus 20 units SQ daily * Increase dose tomorrow if BSG not trending downwards * Tighten NOVOLOG per scale ACHS or Q6hrs while NPO * Goal Range: Low 110 mg/dL - High 140 mg/dL * Correction Factor: 20 mg/dL/unit * Nutritional / Prandial insulin per carb ratio of 1 unit per 7 grams CHO consumed RECOMMENDATIONS FOR DISCHARGE: * A1c = 11.2 % on 05/22/16 & 11.5% on 01/01/16 * Pt specific goal A1c is ~ 7% * A1c goal should be individualized based on risk of hypo/drug AE, disease duration, life expectancy, relevant co-morbidities, established vascular complication, patient attitude and expected treatment efforts, resources and support system. * Suspect non-compliance with outpatient regimen as A1c is essentially unchanged over the past 4 months * Lantus Rx seems compliant based on refill history * NovoLog Rx may be non-compliant as pt has not refilled med since December * Since A1c is greater than or equal to 10% consider metformin + combination injectable therapy (basal insulin + rapid acting insulin OR GLP1-RA) * Metformin, if not contraindicated and if tolerated, is the preferred initial pharmacological agent for type 2 diabetes. Metformin has a long-standing evidence base for efficacy and safety, is inexpensive, and may reduce risk of cardiovascular events. * B12 supplementation may be necessary with nursing home metformin use * Recommend starting Metformin XR 500mg PO daily with the evening meal. Start dose low and titrate slowly to prevent GI adverse effects and improve tolerability/compliance. Dosage increases should be made in increments of 500 mg weekly, up to 2,000 mg/day PO, given in divided doses. * Recommend continuing basal insulin with Lantus - dosage may need adjusted for increased efficacy. * Recommend changing/simplifying NovoLog to fixed dose (10 units?) with the largest meal of the day. May need to change to Regular insulin for decreased cost. * Support Patient Self-Management * Healthy Lifestyle (diet, exercise, and smoking cessation) * Disease self-management (SMBG) * Prevention of complications (BP, Lipid goals, Immunizations) * Consider outpatient Diabetes Self-Management Education & Support * Please note that the plan above was derived based on current level of insulin resistance and hospital stress. These recommendations are appropriate for inpatient admission only. Plan of care upon discharge will need to be reassessed to avoid potential outpatient hypo/hyperglycemia. Thank you.
[2016-05-22] MEDS ORDERED: GADAVIST IV PRN (12:15)
--- NOTE | 2016-05-22 12:37 | DIAGNOSTIC IMAGING REPORT ---
MRI OF THE BRAIN COMBO CLINICAL HISTORY: Headache. COMPARISON STUDY: CT of the brain dated 01/01/2016. TECHNIQUE: MRI of the brain was performed utilizing various T1 and T2-weighted sequences in the axial, sagittal, and coronal planes. Contrast-enhanced sequences were acquired following the administration of 11 cc of Gadavist. The examination is modestly degraded by motion artifact. FINDINGS: Brain parenchyma: There are scattered foci of T2 signal abnormality within the subcortical and periventricular white matter. The brain parenchyma is otherwise normal in appearance. There is no hemorrhage or mass effect. There is no restricted diffusion to suggest acute ischemia. No enhancing mass lesion is identified on the postcontrast images. Hauser-white matter differentiation is preserved. No extra-axial fluid collection is seen. The cerebellar tonsils are normal in configuration. Ventricles, sulci, and cisterns: Normal in configuration. Pituitary and sella: Unremarkable. Intracranial vasculature: Normal flow voids are maintained at the skull base. Orbits: The bony orbits are grossly intact. Orbital contents are normal in appearance. Sinuses and mastoids: Clear. Calvarium: Unremarkable. Cervical cord: Partially visualized cervical spinal cord is normal in morphology and signal intensity. IMPRESSION: 1. No acute intracranial traumatic. 2. There are scattered foci of T2 signal abnormality within the subcortical and periventricular white matter. The appearance is nonspecific but typical for microangiopathic change. A demyelinating process could have a similar appearance but is considered less likely. Clinical correlation will be required. Electronically signed by: Roni García M.D. 05/22/2016 12:35 PM Dictated Date/Time: 05/22/2016 12:32 PM
--- NOTE | 2016-05-22 13:15 | Hospitalist Progress Note ---
Hospitalist Progress Note Date of Service May 22, 2016. Subjective Pt evaluation today including: conversation w/ patient, physical exam, chart review, lab review, review of studies, review of inpatient medication list Voiding: no voiding problems, no incontinence Patient is not feeling well. +increased diffuse head pain. +anxiousness. She is eating and drinking OK. Patient denies any fever, chills, sweats, lightheadedness, dizziness, vision changes, CP, palpitations, edema, SOB, wheezing, cough, abdominal pain, nausea, vomiting, diarrhea, urinary symptoms, melena, numbness/tingling, weakness, muscle/joint pain, depression, active bleeding, or new skin discoloration/changes. Medications Current Inpatient Medications Medications (Trade) Dose Ordered Sig/Candelaria Route Start Time Stop Time Status Last Admin Dose Admin Enoxaparin Sodium (Lovenox Inj) 40 mg Q24H SQ 05/21/16 09:00 06/20/16 08:59 05/21/16 11:25 40 MG Acetaminophen (Tylenol Tab) 650 mg Q4H PRN PO 05/21/16 08:45 06/20/16 08:44 Al Hydrox/Mg Hydrox/Simethicone (Maalox Max Susp) 15 ml Q4H PRN PO 05/21/16 08:45 06/20/16 08:44 Magnesium Hydroxide (Milk Of Magnesia Susp) 30 ml Q6H PRN PO 05/21/16 08:45 06/20/16 08:44 Polyethylene (Miralax Powder Packet) 17 gm DAILY PRN PO 05/21/16 08:45 06/20/16 08:44 Ondansetron HCl (Zofran Inj) 4 mg Q6H PRN IV 05/21/16 08:45 06/20/16 08:44 05/22/16 00:12 4 MG Albuterol (Ventolin Hfa Inhaler) 2 puffs QID PRN INH 05/21/16 08:45 06/20/16 08:44 Fluoxetine HCl (Prozac Cap) 40 mg DAILY PO 05/21/16 09:00 06/20/16 08:59 05/22/16 08:48 40 MG Insulin Glargine (Lantus Solostar Pen) 20 unit QAM SC 05/21/16 09:00 06/20/16 08:59 05/22/16 08:52 20 UNIT Trazodone HCl (Desyrel Tab) 100 mg HS PO 05/21/16 21:00 06/20/16 20:59 05/21/16 20:32 100 MG Insulin Aspart SLIDING SCALE G... ACHS SC 05/21/16 11:00 06/20/16 10:59 05/22/16 08:52 6 UNITS Sodium Chloride (Nss 1000ml) 1,000 ml @ 125 mls/hr Q8H IV 05/21/16 08:45 06/20/16 08:44 05/22/16 07:43 125 MLS/HR Ketorolac Tromethamine (Toradol Inj) 30 mg Q6H PRN IV 05/21/16 08:45 05/26/16 08:44 05/22/16 00:12 30 MG Miscellaneous Information 1 ea 1 ea UD N/A 05/21/16 09:04 06/20/16 09:03 Daptomycin 500 mg/ Sodium Chloride 60 ml @ 100 mls/hr DAILY@1400 IV 05/21/16 15:00 05/31/16 13:59 05/21/16 14:44 100 MLS/HR Lorazepam 0.5 mg/ Syringe 1 ml @ 0.5 mls/min Q6 PRN IV 05/21/16 15:45 06/20/16 15:44 Lorazepam/Syringe (Ativan Inj/ Syringe) 1 ml @ 0.5 mls/min TODAY@1615 PRN IV 05/21/16 16:15 05/22/16 23:59 05/22/16 11:06 0.5 MLS/MIN Alprazolam (Xanax Tab) 1 mg TID PO 05/22/16 14:00 06/21/16 13:59 Hydromorphone HCl (Dilaudid Inj) 1 mg Q2HWA PRN IV 05/22/16 10:00 06/05/16 09:59 05/22/16 10:37 1 MG Gadobutrol (Gadavist) 11 mmol UD PRN IV 05/22/16 12:15 05/26/16 12:14 Objective Vital Signs Date Time Temp Pulse Resp B/P Pulse Ox O2 Delivery O2 Flow Rate FiO2 05/22/16 08:00 93 Room Air 05/22/16 00:00 Room Air 05/21/16 23:50 05/21/16 16:00 93 Room Air 05/21/16 15:39 36.6 88 16 124/90 93 Physical Exam General Appearance: no apparent distress, + obese Eyes: normal inspection, PERRL ENT: hearing grossly normal Neck: supple Respiratory/Chest: lungs clear, no respiratory distress, no accessory muscle use Cardiovascular: regular rate, rhythm Abdomen: normal bowel sounds, non tender, soft Extremities: no pedal edema, no calf tenderness Neurologic/Psychiatric: alert, oriented x 3, + pertinent finding (tearful/ anxious) Skin: normal color, warm/dry, no rash Notes: Head: noted lesion to posterior center scalp and lateral mid-left scalp- scabbed over, no obvious warmth or drainage; NO noted erythema to forehead Laboratory Results Last 24 Hours Test 05/21/16 16:15 05/21/16 19:50 05/22/16 06:55 05/22/16 07:27 Bedside Glucose 211 mg/dl 172 mg/dl 180 mg/dl White Blood Count 11.81 K/uL Red Blood Count 5.27 M/uL Hemoglobin 13.9 g/dL Hematocrit 41.7 % Mean Corpuscular Volume 79.1 fL Mean Corpuscular Hemoglobin 26.4 pg Mean Corpuscular Hemoglobin Concent 33.3 g/dl RDW Standard Deviation 42.1 fL RDW Coefficient of Variation 14.6 % Platelet Count 217 K/uL Mean Platelet Volume 9.9 fL Sodium Level 133 mmol/L Potassium Level 4.3 mmol/L Chloride Level 100 mmol/L Carbon Dioxide Level 26 mmol/L Anion Gap 7.0 mmol/L Blood Urea Nitrogen 13 mg/dl Creatinine 0.71 mg/dl Est Creatinine Clear Calc Drug Dose 126.4 ml/min Estimated GFR () 117.6 Estimated GFR (Non- 101.4 BUN/Creatinine Ratio 18.3 Random Glucose 177 mg/dl Estimated Average Glucose 275 mg/dl Hemoglobin A1c 11.2 % Calcium Level 9.9 mg/dl Test 05/22/16 11:14 Bedside Glucose 127 mg/dl Assessment and Plan 45 y/o female, with PMHx of T2DM, anxiety/depression, asthma, and recurrent facial/head cellulitis, who reported to the ED because of worsening/increasing pain of facial/head cellulitis: Recurrent head/facial cellulitis: - Admit med/surg - IV Vancomycin + Zosyn x1 dose in ED. - IV Dilaudid + Toradol PRN for pain control - BCx- NGTD - Consult ID, appreciate recommendations -- Clindamycin 300 mg TID (started on 05/19 by ID) d/c'd by ID on 05/21 -- IV Daptomycin (started on 05/21) - Follow CBC/PRP - MRI of brain checked due to complaints of severe headaches- No acute intracranial traumatic. There are scattered foci of T2 signal abnormality within the subcortical and periventricular white matter. The appearance is nonspecific but typical for microangiopathic change. A demyelinating process could have a similar appearance but is considered less likely. Clinical correlation will be required. Leukocytosis, likely secondary to infection- improving: Follow CBC T2DM: - ha1c in 12/2015- 11.5%. Recheck ha1c- 11.2% - Continue Lantus 20 u QAM - BSG ACHS w/ sliding insulin scale - Consult pharmacy for glycemic management -- Recommended Metformin XR 500 mg PO daily w/ evening meals, continue basal dosing, and fixed dose 10 units sliding scale--> will discuss w/ patient Asthma: Continue home inhalers Anxiety/Depression: - Continue Prozac 40 mg PO daily and Xanax 1 mg PO TID - IV Ativan PRN - Follows w/ Dr. Zamorano Insomnia: Continue Trazodone 100 mg PO HS GI Prophylaxis: Maalox PRN, IV Zofran PRN, Colace and/or Milk of Mag PRN DVT prophylaxis: Lovenox 40 mg SQ q24 hrs, JON and SCDs Code Status: LEVEL I, FULL Dispo: From home. No discharge needs anticipated
[2016-05-22] MEDS: DAPTOmycin IV 500 MG in SODIUM CHLORIDE 0.9% 50ML 50 ML IV SCH (13:56)
[2016-05-22] MEDS: ALPRAZOLAM 0.5 MG TAB PO SCH ×2 (13:57→21:05)
[2016-05-22 14:49] VITALS: Ht 170.2 cm; Wt 111.9 kg
[2016-05-22 15:04] VITALS: BP 101/66; PULSE 82; TEMP 36.9; O2SAT 93
[2016-05-22] MEDS ORDERED: NAPROXEN 250 MG TAB PO PRN (16:30)
[2016-05-22] MEDS ORDERED: HYDROCODONE/ACETAMOPHEN 5/325MG TAB PO PRN (16:30)
--- NOTE | 2016-05-22 16:59 | Infectious Disease Progress Nt ---
Progress Note Date of Service May 22, 2016. Subjective Pt evaluation today including: conversation w/ patient, physical exam, chart review, lab review, review of studies, conversation w/ data communications software consultant, review of inpatient medication list Patient complaining of moderately severe frontal headache. Otherwise without new complaints. Remains afebrile. Tolerating antibiotics without apparent difficulty All Other Systems: Reviewed and Negative Medications Current Inpatient Medications Medications (Trade) Dose Ordered Sig/Candelaria Route Start Time Stop Time Status Last Admin Dose Admin Enoxaparin Sodium (Lovenox Inj) 40 mg Q24H SQ 05/21/16 09:00 06/20/16 08:59 05/21/16 11:25 40 MG Acetaminophen (Tylenol Tab) 650 mg Q4H PRN PO 05/21/16 08:45 06/20/16 08:44 Al Hydrox/Mg Hydrox/Simethicone (Maalox Max Susp) 15 ml Q4H PRN PO 05/21/16 08:45 06/20/16 08:44 Magnesium Hydroxide (Milk Of Magnesia Susp) 30 ml Q6H PRN PO 05/21/16 08:45 06/20/16 08:44 Polyethylene (Miralax Powder Packet) 17 gm DAILY PRN PO 05/21/16 08:45 06/20/16 08:44 Ondansetron HCl (Zofran Inj) 4 mg Q6H PRN IV 05/21/16 08:45 06/20/16 08:44 05/22/16 00:12 4 MG Albuterol (Ventolin Hfa Inhaler) 2 puffs QID PRN INH 05/21/16 08:45 06/20/16 08:44 Fluoxetine HCl (Prozac Cap) 40 mg DAILY PO 05/21/16 09:00 06/20/16 08:59 05/22/16 08:48 40 MG Insulin Glargine (Lantus Solostar Pen) 20 unit QAM SC 05/21/16 09:00 06/20/16 08:59 05/22/16 08:52 20 UNIT Trazodone HCl (Desyrel Tab) 100 mg HS PO 05/21/16 21:00 06/20/16 20:59 05/21/16 20:32 100 MG Insulin Aspart (novoLOG ASPART) SLIDING SCALE G... ACHS SC 05/21/16 11:00 06/20/16 10:59 05/22/16 14:03 4 UNITS Ketorolac Tromethamine (Toradol Inj) 30 mg Q6H PRN IV 05/21/16 08:45 05/26/16 08:44 05/22/16 00:12 30 MG Miscellaneous Information 1 ea 1 ea UD N/A 05/21/16 09:04 06/20/16 09:03 Daptomycin 500 mg/ Sodium Chloride 60 ml @ 100 mls/hr DAILY@1400 IV 05/21/16 15:00 05/31/16 13:59 05/22/16 13:56 100 MLS/HR Lorazepam 0.5 mg/ Syringe 1 ml @ 0.5 mls/min Q6 PRN IV 05/21/16 15:45 06/20/16 15:44 Lorazepam/Syringe (Ativan Inj/ Syringe) 1 ml @ 0.5 mls/min TODAY@1615 PRN IV 05/21/16 16:15 05/22/16 23:59 05/22/16 11:06 0.5 MLS/MIN Alprazolam (Xanax Tab) 1 mg TID PO 05/22/16 14:00 06/21/16 13:59 05/22/16 13:57 1 MG Gadobutrol (Gadavist) 11 mmol UD PRN IV 05/22/16 12:15 05/26/16 12:14 Naproxen (Naprosyn Tab) 250 mg BID PRN PO 05/22/16 16:30 06/21/16 16:29 Future Hold Acetaminophen/ Hydrocodone Bitart (Deridder 5/325 Tab) 1 tab Q4 PRN PO 05/22/16 16:30 06/05/16 16:29 Objective Vital Signs Date Time Temp Pulse Resp B/P Pulse Ox O2 Delivery O2 Flow Rate FiO2 05/22/16 16:00 Room Air 05/22/16 15:04 36.9 82 20 101/66 93 Room Air 05/22/16 08:00 93 Room Air 05/22/16 00:00 Room Air 05/21/16 23:50 Physical Exam General Appearance: WD/WN, no apparent distress Eyes: normal inspection, sclerae normal ENT: normal ENT inspection, hearing grossly normal, pharynx normal Neck: supple, no adenopathy, trachea midline Respiratory/Chest: chest non-tender, lungs clear, normal breath sounds, no respiratory distress Cardiovascular: regular rate, rhythm, no gallop, no murmur Abdomen: normal bowel sounds, non tender, soft, no organomegaly Extremities: non-tender, no calf tenderness Neurologic/Psychiatric: alert, oriented x 3 Skin: normal color, + pertinent finding (improving cellulitis) Lymphatic: no adenopathy Laboratory Results Last 24 Hours Test 05/21/16 19:50 05/22/16 06:55 05/22/16 07:27 05/22/16 11:14 Bedside Glucose 172 mg/dl 180 mg/dl 127 mg/dl White Blood Count 11.81 K/uL Red Blood Count 5.27 M/uL Hemoglobin 13.9 g/dL Hematocrit 41.7 % Mean Corpuscular Volume 79.1 fL Mean Corpuscular Hemoglobin 26.4 pg Mean Corpuscular Hemoglobin Concent 33.3 g/dl RDW Standard Deviation 42.1 fL RDW Coefficient of Variation 14.6 % Platelet Count 217 K/uL Mean Platelet Volume 9.9 fL Sodium Level 133 mmol/L Potassium Level 4.3 mmol/L Chloride Level 100 mmol/L Carbon Dioxide Level 26 mmol/L Anion Gap 7.0 mmol/L Blood Urea Nitrogen 13 mg/dl Creatinine 0.71 mg/dl Est Creatinine Clear Calc Drug Dose 126.4 ml/min Estimated GFR () 117.6 Estimated GFR (Non- 101.4 BUN/Creatinine Ratio 18.3 Random Glucose 177 mg/dl Estimated Average Glucose 275 mg/dl Hemoglobin A1c 11.2 % Calcium Level 9.9 mg/dl Assessment and Plan 45-year-old with diabetes mellitus, with history of recurrent facial cellulitis , now with exacerbation not responding to oral clindamycin. Patient changed to IV daptomycin, with length of IV therapy to be determined by clinical response. Will likely need prolonged suppressive therapy for recurrent staph infection. Will follow.
[2016-05-22] MEDS ORDERED: NURSING VERBAL MED ORDER ONE (17:45)
[2016-05-22] MEDS: TRAZODONE HCL 100 MG TAB PO SCH (21:05)
[2016-05-22 23:58] VITALS: BP 117/69; PULSE 94; TEMP 37.2; O2SAT 93
[2016-05-23] MEDS: KETOROLAC TROMETHAMINE 30 MG/ML VIAL IV PRN ×2 (01:57→13:57)
[2016-05-23 07:25] VITALS: BP 144/78; PULSE 85; TEMP 37.2; O2SAT 92
[2016-05-23 07:59] LABS: HEMATOCRIT 40.2 % (37-47); MEAN CELL VOLUME 79.8 fL (80-100); MEAN CORPUSCULAR HEMOGLOBIN 26.8 pg (25-34); MEAN CORPUSCULAR HGB CONC 33.6 g/dl (32-36); MEAN PLATELET VOLUME 9.9 fL (7.4-10.4); PLATELET COUNT 203 K/uL (130-400); RED BLOOD COUNT 5.04 M/uL (4.2-5.4); WHITE BLOOD COUNT 8.07 K/uL (4.8-10.8)
[2016-05-23 08:30] LABS: BUN/CREATININE RATIO 15.9 (10-20); CALCIUM 9.8 mg/dl (8.5-10.1); CREATININE 0.61 mg/dl (0.60-1.20); POTASSIUM 4.6 mmol/L (3.5-5.1)
[2016-05-23] MEDS: ENOXAPARIN 40 MG/0.4 ML SYR SQ SCH (09:00)
[2016-05-23] MEDS: HYDROmorphone INJ 1 MG/ML SYR IV PRN ×2 (09:20→22:20)
[2016-05-23] MEDS: INSULIN ASPART 100 UNITS/ML 3 ML PEN SC SCH ×4 (09:22→21:41)
[2016-05-23] MEDS: INSULIN GLARGINE SOLOSTAR 100 UNITS/ML 3 ML PEN SC SCH (09:23)
[2016-05-23] MEDS: ALPRAZOLAM 0.5 MG TAB PO SCH ×3 (09:24→21:52)
[2016-05-23] MEDS: FLUOXETINE HCL 20 MG CAP PO SCH (09:27)
--- NOTE | 2016-05-23 11:37 | Pharmacy Progress Note ---
Glycemic Control: Progress Nt Date of Service May 23, 2016. Scope Glycemic Pharmacist consulted by Fausto Saravia PA-C on 05/21/16 for glycemic control and to write orders per [facility] inpatient glycemic control protocol. Objective Accuchecks BSG (last 24hrs): Test 05/22/16 17:07 05/22/16 20:16 05/23/16 07:37 05/23/16 07:45 Bedside Glucose 139 mg/dl (70-90) 163 mg/dl (70-90) 186 mg/dl (70-90) Random Glucose 207 mg/dl (70-99) HbA1c: Test 05/22/16 06:55 Hemoglobin A1c 11.2 % (4.5-5.6) H Recent Pertinent Medications Outpatient Anti-diabetic Regimen: * Lantus 20 units SQ AM * NovoLog 6 units SQ AC The patient is currently receiving: * Basal insulin: Lantus 20 units every 24 hours given in the morning * Correctional Insulin: Novolog Correction per scale ACHS Goal Range: Low 110 mg/dL - High 160 mg/dL Correction Factor: 20 mg/dL/unit * Prandial insulin: Per carb ratio of 1 unit per 7 grams CHO consumed Risk Factors for Insulin Resistance: * Infection * Diet * Baseline insulin resistance/high A1c Assessment & Plan ASSESSMENT: * 45yo T2DM with poor glycemic control as an outpatient per recent A1c * Tight glycemic control essential to facilitate infection healing and DM co- morbidities * Pt known to pharmacy from previous admissions/glycemic consults. Most recently 12/2015 when patient was diagnosed with T2DM * Pt has been requiring ~ 40 units of insulin over the past 24hrs with near- adequate control * 20 units of basal insulin * 21 units of prandial/correctional insulin * BSGs ranging 127 - 186 over the past 24hrs * Risk factors for insulin resistance are constant over the past 24hrs. Insulin regimen will need increased for the next 24hrs d/t : * AM Fasting BSG = 186mg/dl --> this is above goal range x 2 days therefore Basal insulin needs increased * Total daily dose = 40 units/day, anticipate that total daily dose for adequate control is ~ 50 units/day. Will keep regimen distributed 50%:50% basal: prandial to prevent hypo/hyperglycemia * Post-prandial BSGs are in range --> no change needed to CF/CR * ADA & AACE recommend a goal blood sugar range 140-180 mg/dl for the majority of critically ill & non-critically ill patients. However, more stringent targets may be selected in individual cases. Will utilize more stringent goal range of 110-140mg/dl based on age, short disease duration, & to facilitate infection healing. PLAN FOR INPATIENT GLYCEMIC CONTROL: * Increase Basal insulin with Lantus to 25 units SQ daily * Continue NOVOLOG per scale ACHS or Q6hrs while NPO * Goal Range: Low 110 mg/dL - High 140 mg/dL * Correction Factor: 20 mg/dL/unit * Nutritional / Prandial insulin per carb ratio of 1 unit per 7 grams CHO consumed RECOMMENDATIONS FOR DISCHARGE: * A1c = 11.2 % on 05/22/16 & 11.5% on 01/01/16 * Pt specific goal A1c is ~ 7% * A1c goal should be individualized based on risk of hypo/drug AE, disease duration, life expectancy, relevant co-morbidities, established vascular complication, patient attitude and expected treatment efforts, resources and support system. * Suspect non-compliance with outpatient regimen as A1c is essentially unchanged over the past 4 months * Lantus Rx seems compliant based on refill history * NovoLog Rx may be non-compliant as pt has not refilled med since December * Since A1c is greater than or equal to 10% consider metformin + combination injectable therapy (basal insulin + rapid acting insulin OR GLP1-RA) * Metformin, if not contraindicated and if tolerated, is the preferred initial pharmacological agent for type 2 diabetes. Metformin has a long-standing evidence base for efficacy and safety, is inexpensive, and may reduce risk of cardiovascular events. * B12 supplementation may be necessary with residential metformin use * Recommend starting Metformin XR 500mg PO daily with the evening meal. Start dose low and titrate slowly to prevent GI adverse effects and improve tolerability/compliance. Dosage increases should be made in increments of 500 mg weekly, up to 2,000 mg/day PO, given in divided doses. * Recommend continuing basal insulin with Lantus - dosage may need adjusted for increased efficacy. * Recommend changing/simplifying NovoLog to fixed dose (10 units?) with the largest meal of the day. May need to change to Regular insulin for decreased cost. * Support Patient Self-Management * Healthy Lifestyle (diet, exercise, and smoking cessation) * Disease self-management (SMBG) * Prevention of complications (BP, Lipid goals, Immunizations) * Consider outpatient Diabetes Self-Management Education & Support * Please note that the plan above was derived based on current level of insulin resistance and hospital stress. These recommendations are appropriate for inpatient admission only. Plan of care upon discharge will need to be reassessed to avoid potential outpatient hypo/hyperglycemia. Thank you.
[2016-05-23] MEDS ORDERED: INSULIN GLARGINE SOLOSTAR 100 UNITS/ML 3 ML PEN SC SCH (12:00)
[2016-05-23] MEDS: DAPTOmycin IV 500 MG in SODIUM CHLORIDE 0.9% 50ML 50 ML IV SCH (13:56)
[2016-05-23] MEDS ORDERED: HYDROmorphone INJ 1 MG/ML SYR ONE (14:51)
[2016-05-23 14:58] VITALS: BP 121/70; PULSE 67; TEMP 36.8; O2SAT 93
--- NOTE | 2016-05-23 15:13 | Infectious Disease Progress Nt ---
Progress Note Date of Service May 23, 2016. Subjective Pt evaluation today including: conversation w/ patient, physical exam, chart review, lab review, review of studies, conversation w/ sap basis consultant, review of inpatient medication list Patient complaining of severe pain localized to her right scalp area. Neck pain improved after Toradol use. Erythema receding. Remains afebrile. Had MRI scan of brain, read by me, which showed multiple bright areas consistent with microangiopathy. All Other Systems: Reviewed and Negative Medications Current Inpatient Medications Medications (Trade) Dose Ordered Sig/Candelaria Route Start Time Stop Time Status Last Admin Dose Admin Enoxaparin Sodium (Lovenox Inj) 40 mg Q24H SQ 05/21/16 09:00 06/20/16 08:59 05/21/16 11:25 40 MG Acetaminophen (Tylenol Tab) 650 mg Q4H PRN PO 05/21/16 08:45 06/20/16 08:44 Al Hydrox/Mg Hydrox/Simethicone (Maalox Max Susp) 15 ml Q4H PRN PO 05/21/16 08:45 06/20/16 08:44 Magnesium Hydroxide (Milk Of Magnesia Susp) 30 ml Q6H PRN PO 05/21/16 08:45 06/20/16 08:44 Polyethylene (Miralax Powder Packet) 17 gm DAILY PRN PO 05/21/16 08:45 06/20/16 08:44 Ondansetron HCl (Zofran Inj) 4 mg Q6H PRN IV 05/21/16 08:45 06/20/16 08:44 05/22/16 00:12 4 MG Albuterol (Ventolin Hfa Inhaler) 2 puffs QID PRN INH 05/21/16 08:45 06/20/16 08:44 Fluoxetine HCl (Prozac Cap) 40 mg DAILY PO 05/21/16 09:00 06/20/16 08:59 05/23/16 09:27 40 MG Trazodone HCl (Desyrel Tab) 100 mg HS PO 05/21/16 21:00 06/20/16 20:59 05/22/16 21:05 100 MG Insulin Aspart (novoLOG ASPART) SLIDING SCALE G... ACHS SC 05/21/16 11:00 06/20/16 10:59 05/23/16 12:16 7 UNITS Ketorolac Tromethamine (Toradol Inj) 30 mg Q6H PRN IV 05/21/16 08:45 05/26/16 08:44 05/23/16 13:57 30 MG Miscellaneous Information 1 ea 1 ea UD N/A 05/21/16 09:04 06/20/16 09:03 Daptomycin 500 mg/ Sodium Chloride 60 ml @ 100 mls/hr DAILY@1400 IV 05/21/16 15:00 05/31/16 13:59 05/23/16 13:56 100 MLS/HR Lorazepam/Syringe (Ativan Inj/ Syringe) 1 ml @ 0.5 mls/min Q6 PRN IV 05/21/16 15:45 06/20/16 15:44 Alprazolam (Xanax Tab) 1 mg TID PO 05/22/16 14:00 06/21/16 13:59 05/23/16 13:57 1 MG Gadobutrol (Gadavist) 11 mmol UD PRN IV 05/22/16 12:15 05/26/16 12:14 Naproxen (Naprosyn Tab) 250 mg BID PRN PO 05/22/16 16:30 06/21/16 16:29 Future Hold Acetaminophen/ Hydrocodone Bitart ([place] 5/325 Tab) 1 tab Q4 PRN PO 05/22/16 16:30 06/05/16 16:29 Insulin Glargine (Lantus Solostar Pen) 25 unit QAM SC 05/24/16 09:00 06/23/16 08:59 Hydromorphone HCl (Dilaudid Inj) 1 mg Q3HWA PRN IV 05/23/16 15:00 06/06/16 14:59 Objective Vital Signs Date Time Temp Pulse Resp B/P Pulse Ox O2 Delivery O2 Flow Rate FiO2 05/23/16 14:58 36.8 67 20 121/70 93 Room Air 05/23/16 08:00 Room Air 05/23/16 07:25 37.2 85 18 144/78 92 Room Air 05/23/16 00:00 Room Air 05/22/16 23:58 37.2 94 20 117/69 93 Room Air 05/22/16 20:00 Room Air 05/22/16 16:00 Room Air Physical Exam General Appearance: WD/WN, no apparent distress Eyes: normal inspection, sclerae normal ENT: normal ENT inspection, pharynx normal Neck: supple, no adenopathy, trachea midline Respiratory/Chest: chest non-tender, lungs clear, normal breath sounds, no respiratory distress Cardiovascular: regular rate, rhythm, no gallop, no murmur Abdomen: normal bowel sounds, non tender, soft, no organomegaly Extremities: non-tender, no calf tenderness Neurologic/Psychiatric: alert, oriented x 3 Skin: normal color, + pertinent finding (Improving erythema of her forehead) Lymphatic: no adenopathy Laboratory Results Last 24 Hours Test 05/22/16 17:07 05/22/16 20:16 05/23/16 07:37 05/23/16 07:45 Bedside Glucose 139 mg/dl 163 mg/dl 186 mg/dl White Blood Count 8.07 K/uL Red Blood Count 5.04 M/uL Hemoglobin 13.5 g/dL Hematocrit 40.2 % Mean Corpuscular Volume 79.8 fL Mean Corpuscular Hemoglobin 26.8 pg Mean Corpuscular Hemoglobin Concent 33.6 g/dl RDW Standard Deviation 42.4 fL RDW Coefficient of Variation 14.6 % Platelet Count 203 K/uL Mean Platelet Volume 9.9 fL Sodium Level 138 mmol/L Potassium Level 4.6 mmol/L Chloride Level 104 mmol/L Carbon Dioxide Level 29 mmol/L Anion Gap 5.0 mmol/L Blood Urea Nitrogen 10 mg/dl Creatinine 0.61 mg/dl Est Creatinine Clear Calc Drug Dose 147.1 ml/min Estimated GFR () 125.1 Estimated GFR (Non- 108.0 BUN/Creatinine Ratio 15.9 Random Glucose 207 mg/dl Calcium Level 9.8 mg/dl Test 05/23/16 11:28 Bedside Glucose 149 mg/dl Patient Name: BECCA RAMIREZ Unit Number: [id number] Dictated: 05/22/161231 Transcribed: 05/22/16 123 EV Printed Date/Time: [~ rep prt dt]/[~ rep prt tm] [~ rep ct labl] - [~ rep ct ivnm] [facility] [place] [address] Dictated: 05/22/161231 Transcribed: 05/22/16 123 EV Printed Date/Time: [~ rep prt dt]/[~ rep prt tm] [~ rep ct labl] - [~ rep ct ivnm] [~ rep ct add3]] MRI OF THE BRAIN COMBO CLINICAL HISTORY: Headache. COMPARISON STUDY: CT of the brain dated 01/01/2016. TECHNIQUE: MRI of the brain was performed utilizing various T1 and T2-weighted sequences in the axial, sagittal, and coronal planes. Contrast-enhanced sequences were acquired following the administration of 11 cc of Gadavist. The examination is modestly degraded by motion artifact. FINDINGS: Brain parenchyma: There are scattered foci of T2 signal abnormality within the subcortical and periventricular white matter. The brain parenchyma is otherwise normal in appearance. There is no hemorrhage or mass effect. There is no restricted diffusion to suggest acute ischemia. No enhancing mass lesion is identified on the postcontrast images. Hauser-white matter differentiation is preserved. No extra-axial fluid collection is seen. The cerebellar tonsils are normal in configuration. Ventricles, sulci, and cisterns: Normal in configuration. Pituitary and sella: Unremarkable. Intracranial vasculature: Normal flow voids are maintained at the skull base. Orbits: The bony orbits are grossly intact. Orbital contents are normal in appearance. Sinuses and mastoids: Clear. Calvarium: Unremarkable. Cervical cord: Partially visualized cervical spinal cord is normal in morphology and signal intensity. IMPRESSION: 1. No acute intracranial traumatic. 2. There are scattered foci of T2 signal abnormality within the subcortical and periventricular white matter. The appearance is nonspecific but typical for microangiopathic change. A demyelinating process could have a similar appearance but is considered less likely. Clinical correlation will be required. Electronically signed by: Roni García M.D. 05/22/2016 12:35 PM Dictated Date/Time: 05/22/2016 12:32 PM The status of this report is Signed. Draft = Not yet reviewed or approved by Radiologist. Signed = Reviewed and approved by Radiologist. <AttendingPhy>Valentino Turner MD, PhD</AttendingPhy> <FamilyPhy>No Doctor, Assigned</FamilyPhy> <PrimaryPhy>No Doctor, Assigned</PrimaryPhy> <UnitNumber> [id number]</UnitNumber> <VisitNumber>[id number]</VisitNumber> <PatientName> BECCA RAMIREZ</PatientName> <DateOfBirth>1970</DateOfBirth> <Location> [facility]</Location> <ServiceDate>05/21/16</ServiceDate> <MNE>ESINDI</MNE> < OrderingPhy>Tanner Burnette DO</OrderingPhy> <OrderingPhyMNE>f rep ord dr ramos</ OrderingPhyMNE> <DictatingPhyMNE>f rep dict dr armos</DictatingPhyMNE> <CCListMNE> f rep ct drewe</CCListMNE> <AdmittingPhyMNE>f pt admit dr ramos</AdmittingPhyMNE> < AttendingPhyMNE>f pt attend dr ramos</AttendingPhyMNE> <ConsultingPhyMNE>f pt consult dr ramos</ConsultingPhyMNE> <FamilyPhyMNE>f pt fam dr ramos</FamilyPhyMNE> <OtherPhyMNE>f pt other dr ramos</OtherPhyMNE> < PrimaryPhyMNE>f pt prim care dr ramos</PrimaryPhyMNE> <ReferringPhyMNE>f pt referring dr ramos</ReferringPhyMNE> Assessment and Plan 45-year-old with diabetes mellitus, with history of recurrent facial cellulitis , now with exacerbation not responding to oral clindamycin. Patient changed to IV daptomycin with evidence of improvement,, with length of IV therapy to be determined by clinical response. Will likely need prolonged suppressive therapy for recurrent staph infection. Will follow.
[2016-05-23 16:00] VITALS: O2SAT 93
--- NOTE | 2016-05-23 16:59 | Progress Note ---
Subjective Date of Service: May 23, 2016. Subjective Pt evaluation today including: conversation w/ patient, physical exam, chart review, lab review, review of studies, conversation w/ real estate listing consultant, review of inpatient medication list Voiding: no voiding problems Patient was upset about pain management, she was emotional, and crying, complaining of headache from the scalp cellulitis Problem List Medical Problems: (1) Asthma exacerbation Status: Acute (2) Diabetes mellitus with hyperglycemia Status: Acute (3) Diabetes mellitus, new onset Status: Acute (4) Facial cellulitis Status: Acute (5) Facial cellulitis Status: Acute (6) Medication overdose Status: Acute (7) Pleuritic chest pain Status: Acute (8) Suicidal ideation Status: Acute Review of Systems Constitutional: No chills, No fatigue, No fever, No problem reported, No sweats , No weakness, No weight loss Eyes: No diplopia, No discharge, No eye pain, No redness, No worsening of vision ENT: No dental problems, No hearing loss, No nasal symptoms, No sore throat, No tinnitus, No trouble swallowing, No unusual epistaxis Respiratory: No cough, No dyspnea at rest, No dyspnea on exertion, No hemoptysis, No shortness of breath, No sputum, No wheezing Cardiac: No PND, No chest pain, No claudication, No edema, No orthopnea, No palpitations Abdomen: No constipation, No diarrhea, No nausea, No pain, No vomiting Musculoskeletal: No calf pain, No joint pain, No muscle pain, No swelling Female : No abnormal vaginal bleeding, No dysuria, No hematuria, No incontinence, No urinary frequency, No vaginal discharge Neurologic: No balance problems, No memory loss, No numbness/tingling, No paralysis, No vertigo, No weakness Psychiatric: No anhedonism, No anxiety, No depression symptoms, No insomnia, No substance abuse Heme: No abnormal bleeding/bruising, No clotting problems, No night sweats, No swollen lymph nodes Endo: No excessive thirst, No excessive urination, No fatigue Skin: + rash, No bleeding, No color change, No itch, No new/changing skin lesions Objective Vital Signs Date Time Temp Pulse Resp B/P Pulse Ox O2 Delivery O2 Flow Rate FiO2 05/23/16 14:58 36.8 67 20 121/70 93 Room Air 05/23/16 08:00 Room Air 05/23/16 07:25 37.2 85 18 144/78 92 Room Air 05/23/16 00:00 Room Air 05/22/16 23:58 37.2 94 20 117/69 93 Room Air 05/22/16 20:00 Room Air Physical Exam General Appearance: WD/WN, no apparent distress, + obese Eyes: normal inspection, PERRL, EOMI, sclerae normal ENT: normal ENT inspection, hearing grossly normal, pharynx normal Neck: supple, no adenopathy, thyroid normal, no JVD, no carotid bruits, trachea midline Respiratory/Chest: chest non-tender, normal breath sounds, no respiratory distress, no accessory muscle use, + decreased breath sounds Cardiovascular: regular rate, rhythm, no edema, no gallop, no JVD, no murmur Abdomen: normal bowel sounds, non tender, soft, no organomegaly, no pulsatile mass Extremities: normal range of motion, non-tender, normal inspection, no pedal edema, no calf tenderness, normal capillary refill, pelvis stable Neurologic/Psychiatric: carton stamper II-XII nml as tested, no motor/sensory deficits, alert, normal mood/affect, oriented x 3 Skin: normal color, warm/dry, no rash, + pertinent finding (posterior neck skin mild erythema and tender in palpation,) Lymphatic: no adenopathy Laboratory Results Last 24 Hours Test 05/22/16 17:07 05/22/16 20:16 05/23/16 07:37 05/23/16 07:45 Bedside Glucose 139 mg/dl 163 mg/dl 186 mg/dl White Blood Count 8.07 K/uL Red Blood Count 5.04 M/uL Hemoglobin 13.5 g/dL Hematocrit 40.2 % Mean Corpuscular Volume 79.8 fL Mean Corpuscular Hemoglobin 26.8 pg Mean Corpuscular Hemoglobin Concent 33.6 g/dl RDW Standard Deviation 42.4 fL RDW Coefficient of Variation 14.6 % Platelet Count 203 K/uL Mean Platelet Volume 9.9 fL Sodium Level 138 mmol/L Potassium Level 4.6 mmol/L Chloride Level 104 mmol/L Carbon Dioxide Level 29 mmol/L Anion Gap 5.0 mmol/L Blood Urea Nitrogen 10 mg/dl Creatinine 0.61 mg/dl Est Creatinine Clear Calc Drug Dose 147.1 ml/min Estimated GFR () 125.1 Estimated GFR (Non- 108.0 BUN/Creatinine Ratio 15.9 Random Glucose 207 mg/dl Calcium Level 9.8 mg/dl Test 05/23/16 11:28 Bedside Glucose 149 mg/dl Assessment and Plan 45 y/o female admitted because of worsening/increasing pain of facial/head cellulitis: Recurrent head/facial cellulitis: Associated with Leukocytosis, poor controlled T2DM: cont current care, IV antibiotic will be per infectious disease, BCx- NGTD Consult ID, appreciate recommendations -- Clindamycin 300 mg TID (started on 05/19 by ID) d/c'd by ID on 05/21 -- IV Daptomycin (started on 05/21) Pain management, seems patient not agree the transition plan of "bridging IV pain medicine to oral pain medicine , with slowly decrease dose and frequency of IV Dilaudid ", after detail discussion, will resume the initial pain management, and request pain management consultation Continue Lantus 20 u QAM BSG ACHS w/ sliding insulin scale Consult pharmacy for glycemic management, DM education -- Recommended Metformin XR 500 mg PO daily w/ evening meals, continue basal dosing, and fixed dose 10 units sliding scale--> will discuss w/ patient Report severe headache, MRI of brain was done No acute intracranial traumatic. There are scattered foci of T2 signal abnormality within the subcortical and periventricular white matter. The appearance is nonspecific but typical for microangiopathic change. A demyelinating process could have a similar appearance but is considered less likely. Clinical correlation will be required. pt 's uncle has multiple sclerosis, will request neuro consult b/c " possible A demyelinating process", This morning case was discussed with Dr. Ring, who was requested to see patient as a real estate listing consultant, however patient not available this morning she went to cafeteria without notified any nursing staff. Dr. Ring and me discussed the case, there is no concern about "demyelinating process" per Dr. Ring , however , the possible causes of patient's microangiopathic change, and recommend lifestyle modification include diabetic control control, hypertension and of smoking. I talked to patient about this, and the same time recommend start Aspirin, Per Dr. Ring's recommendation, I will discontinue consultation and patient is offered to be seen by Dr. Ring as an outpatient. Asthma: Continue home inhalers Anxiety/Depression: Stable continue home medication Insomnia: GI Prophylaxis: Maalox PRN, IV Zofran PRN, Colace and/or Milk of Mag PRN DVT prophylaxis: Lovenox 40 mg SQ q24 hrs, JON and SCDs Code Status: LEVEL I, FULL Continued [facility] stay due to: multiple IV medications needed Discharge planning: home
[2016-05-23] MEDS: TRAZODONE HCL 100 MG TAB PO SCH (21:38)
[2016-05-23 23:20] VITALS: BP 156/100; PULSE 79; TEMP 36.4; O2SAT 96
[2016-05-24] MEDS: KETOROLAC TROMETHAMINE 30 MG/ML VIAL IV PRN (00:14)
[2016-05-24] MEDS: HYDROmorphone INJ 1 MG/ML SYR IV PRN ×2 (02:04→06:43)
[2016-05-24 06:55] VITALS: BP 137/70; PULSE 76; TEMP 36.4; O2SAT 93
--- NOTE | 2016-05-24 07:24 | Hospitalist Progress Note ---
Hospitalist Progress Note Date of Service May 24, 2016. Objective Vital Signs Date Time Temp Pulse Resp B/P Pulse Ox O2 Delivery O2 Flow Rate FiO2 05/24/16 06:55 36.4 76 20 137/70 93 Room Air 05/24/16 00:00 Room Air 05/23/16 23:20 36.4 79 18 156/100 96 Room Air 05/23/16 16:00 93 Room Air 05/23/16 14:58 36.8 67 20 121/70 93 Room Air 05/23/16 08:00 Room Air 05/23/16 07:25 37.2 85 18 144/78 92 Room Air Laboratory Results Last 24 Hours Test 05/23/16 07:37 05/23/16 07:45 05/23/16 11:28 05/23/16 16:38 Bedside Glucose 186 mg/dl 149 mg/dl 247 mg/dl White Blood Count 8.07 K/uL Red Blood Count 5.04 M/uL Hemoglobin 13.5 g/dL Hematocrit 40.2 % Mean Corpuscular Volume 79.8 fL Mean Corpuscular Hemoglobin 26.8 pg Mean Corpuscular Hemoglobin Concent 33.6 g/dl RDW Standard Deviation 42.4 fL RDW Coefficient of Variation 14.6 % Platelet Count 203 K/uL Mean Platelet Volume 9.9 fL Sodium Level 138 mmol/L Potassium Level 4.6 mmol/L Chloride Level 104 mmol/L Carbon Dioxide Level 29 mmol/L Anion Gap 5.0 mmol/L Blood Urea Nitrogen 10 mg/dl Creatinine 0.61 mg/dl Est Creatinine Clear Calc Drug Dose 147.1 ml/min Estimated GFR () 125.1 Estimated GFR (Non- 108.0 BUN/Creatinine Ratio 15.9 Random Glucose 207 mg/dl Calcium Level 9.8 mg/dl Test 05/23/16 20:14 05/24/16 04:44 Bedside Glucose 293 mg/dl Assessment and Plan 45 y/o female, with PMHx of T2DM, anxiety/depression, asthma, and recurrent facial/head cellulitis, who reported to the ED because of worsening/increasing pain of facial/head cellulitis: Recurrent head/facial cellulitis: - Admit med/surg - IV Vancomycin + Zosyn x1 dose in ED. - IV Dilaudid + Toradol PRN for pain control - Inadequate pain control, does not want to try transitioning to PO medications--> consult pain management, appreciate recommendations - BCx- NGTD - Consult ID, appreciate recommendations -- Clindamycin 300 mg TID (started on 05/19 by ID) d/c'd by ID on 05/21 -- IV Daptomycin (started on 05/21) - Follow CBC/PRP - MRI of brain checked due to complaints of severe headaches- No acute intracranial traumatic. There are scattered foci of T2 signal abnormality within the subcortical and periventricular white matter. The appearance is nonspecific but typical for microangiopathic change. A demyelinating process could have a similar appearance but is considered less likely. Clinical correlation will be required. -- Consulted Neurology, appreciate recommendations 1. No concern of demyelination process 2. Recommend lifestyle modification for microangiopathic change- diabetic control control, HTN, and of smoking 3. Start ASA 81 mg PO daily Leukocytosis, likely secondary to infection- improving: Follow CBC T2DM: - ha1c in 12/2015- 11.5%. Recheck ha1c- 11.2% - Continue Lantus 20 u QAM - BSG ACHS w/ sliding insulin scale - Consult pharmacy for glycemic management -- Recommended Metformin XR 500 mg PO daily w/ evening meals, continue basal dosing, and fixed dose 10 units sliding scale--> will discuss w/ patient Asthma: Continue home inhalers Anxiety/Depression: - Continue Prozac 40 mg PO daily and Xanax 1 mg PO TID - IV Ativan PRN - Follows w/ Dr. Zamorano Insomnia: Continue Trazodone 100 mg PO HS GI Prophylaxis: Maalox PRN, IV Zofran PRN, Colace and/or Milk of Mag PRN DVT prophylaxis: Lovenox 40 mg SQ q24 hrs, JON and SCDs Code Status: LEVEL I, FULL Dispo: From home. No discharge needs anticipated
[2016-05-24] MEDS: ALPRAZOLAM 0.5 MG TAB PO SCH (08:38)
[2016-05-24] MEDS: FLUOXETINE HCL 20 MG CAP PO SCH (08:38)
[2016-05-24] MEDS: ENOXAPARIN 40 MG/0.4 ML SYR SQ SCH (08:42)
[2016-05-24] MEDS: INSULIN ASPART 100 UNITS/ML 3 ML PEN SC SCH (08:45)
[2016-05-24 08:51] LABS: HEMATOCRIT 38.9 % (37-47); MEAN CELL VOLUME 79.1 fL (80-100); MEAN CORPUSCULAR HGB CONC 32.9 g/dl (32-36); MEAN PLATELET VOLUME 9.7 fL (7.4-10.4); PLATELET COUNT 227 K/uL (130-400); RED BLOOD COUNT 4.92 M/uL (4.2-5.4); WHITE BLOOD COUNT 6.54 K/uL (4.8-10.8)
--- NOTE | 2016-05-24 08:55 | Pain Management Consultation ---
Pain Management Consultation Date of Consultation May 24, 2016. Reason for Consultation Scalp pain History Ms. Sparks is a 45 year old white female that is being seen at the [facility] for scalp and facial cellulitis. Patient does have a prior history of facial/scalp cellulitis in which she has been seeing infectious disease as an outpatient. She was admitted to the hospital as the infection was continuing to worsen and reached from the periorbital region, along the frontal and to the occipital region. She describes a red, burning, and itching along the scalp. She reports a significant improvement in cellulitis and is anxious for discharge in the next day or so. She has been utilizing IV Dilaudid and Toradol for pain which is efficacious. Patient states that she was not aware of oral hydrocodone ordered for her so she has not taken it. She did also but her hair prior to admission so that the cellulitis can be better visualized. Patient denies any fevers, chills, vision changes, neck pain, nausea, vomiting. Case discussed with Dr. Torres Past Medical/Surgical History (1) Cellulitis (2) Asthma (3) Eczema (4) Psoriasis (5) History of suicidal ideation (6) Diabetes mellitus with hyperglycemia (7) Facial cellulitis Social / Work History Smoking Status: Unknown if ever smoked Smokeless Tobacco Use: No Alcohol Use: socially Drug Use: none Marital Status: single Housing Status: lives alone Occupation: unemployed Allergies Coded Allergies: Avocado (Verified Allergy, Severe, SWELLING OF THROAT,ITCHING, 05/21/16) Banana (Verified Allergy, Severe, THROAT SWELLING,ITCHING, 05/21/16) Latex1 -Allergic Contact Dermititis (Verified Adverse Reaction, Mild, RASH ,ITCHING, 05/21/16) Medications Current Inpatient Medications Medications (Trade) Dose Ordered Sig/Candelaria Route Start Time Stop Time Status Last Admin Dose Admin Enoxaparin Sodium (Lovenox Inj) 40 mg Q24H SQ 05/21/16 09:00 06/20/16 08:59 05/21/16 11:25 40 MG Acetaminophen (Tylenol Tab) 650 mg Q4H PRN PO 05/21/16 08:45 06/20/16 08:44 Al Hydrox/Mg Hydrox/Simethicone (Maalox Max Susp) 15 ml Q4H PRN PO 05/21/16 08:45 06/20/16 08:44 Magnesium Hydroxide (Milk Of Magnesia Susp) 30 ml Q6H PRN PO 05/21/16 08:45 06/20/16 08:44 Polyethylene (Miralax Powder Packet) 17 gm DAILY PRN PO 05/21/16 08:45 06/20/16 08:44 Ondansetron HCl (Zofran Inj) 4 mg Q6H PRN IV 05/21/16 08:45 06/20/16 08:44 05/22/16 00:12 4 MG Albuterol (Ventolin Hfa Inhaler) 2 puffs QID PRN INH 05/21/16 08:45 06/20/16 08:44 Fluoxetine HCl (Prozac Cap) 40 mg DAILY PO 05/21/16 09:00 06/20/16 08:59 05/23/16 09:27 40 MG Trazodone HCl (Desyrel Tab) 100 mg HS PO 05/21/16 21:00 06/20/16 20:59 05/23/16 21:38 100 MG Insulin Aspart (novoLOG ASPART) SLIDING SCALE G... ACHS SC 05/21/16 11:00 06/20/16 10:59 05/23/16 21:41 8 UNITS Ketorolac Tromethamine (Toradol Inj) 30 mg Q6H PRN IV 05/21/16 08:45 05/26/16 08:44 05/24/16 00:14 30 MG Miscellaneous Information 1 ea 1 ea UD N/A 05/21/16 09:04 06/20/16 09:03 Daptomycin 500 mg/ Sodium Chloride 60 ml @ 100 mls/hr DAILY@1400 IV 05/21/16 15:00 05/31/16 13:59 05/23/16 13:56 100 MLS/HR Lorazepam/Syringe (Ativan Inj/ Syringe) 1 ml @ 0.5 mls/min Q6 PRN IV 05/21/16 15:45 06/20/16 15:44 Alprazolam (Xanax Tab) 1 mg TID PO 05/22/16 14:00 06/21/16 13:59 05/23/16 21:52 1 MG Gadobutrol (Gadavist) 11 mmol UD PRN IV 05/22/16 12:15 05/26/16 12:14 Naproxen (Naprosyn Tab) 250 mg BID PRN PO 05/22/16 16:30 06/21/16 16:29 Future Hold Acetaminophen/ Hydrocodone Bitart ([place] 5/325 Tab) 1 tab Q4 PRN PO 05/22/16 16:30 06/05/16 16:29 Insulin Glargine (Lantus Solostar Pen) 25 unit QAM SC 05/24/16 09:00 06/23/16 08:59 Hydromorphone HCl (Dilaudid Inj) 1 mg Q3HWA PRN IV 05/23/16 15:00 06/06/16 14:59 05/24/16 06:43 1 MG Aspirin (Ecotrin Tab) 81 mg QAM PO 05/24/16 09:00 06/23/16 08:59 Review of Systems Denies complaints related to 10 point organ system review. Physical Exam Height & Weight: Height 5 feet, 7.00 inches. Weight 111.900 (Kilograms) 246 (Pounds) Last Vital Signs Documentation Date Time Temp Pulse Resp B/P Pulse Ox O2 Delivery O2 Flow Rate FiO2 05/24/16 06:55 36.4 76 20 137/70 93 Room Air Exam: GENERAL: Ms. Sparks is a 45 y/o white female that appears obese and physically deconditioned. Speech and cognition is intact. Mood and affect is appropriate. HEAD: Normocephalic; atraumatic. + very mild erythema along the right occipital and forehead without warmth or drainage. EYES: Pupils are round, equal, and reactive to light; EOM intact. ENT: No external ear discharge or lesions. No rhinorrhea or epistaxis. No mucosal lesions. NECK: Full ROM; trachea is midline; no TTP; no cervical lymphadenopathy. CHEST: Regular chest respiration and excursion. NEURO: CN II-XII grossly intact with no focal deficits noted. AAO x 3 Laboratory / Imaging Results Imagin05/22/16 Brain MRI There are scattered foci of T2 signal abnormality within the subcortical and periventricular white matter. The appearance is nonspecific but typical for microangiopathic change. A demyelinating process could have a similar appearance but is considered less likely. Clinical correlation will be required. [place] Drug Monitoring Program Search Results: patient reviewed within database, no issues identified Opioid Risk Assessment Risk assessment performed, moderate risk identified Assessment 1. Facial/scalp cellulitis 2. Diabetes Mellitus Recommendations I have advised the patient that Hydrocodone 5/325mg x 4 hours is ordered for her to take for pain. I have stressed the importance of taking oral medication for pain relief and IV only for breakthrough pain. She is understanding and will try oral medications. I would recommend very few or no narcotics to be sent home with the patient upon discharge as she does have a history of suicidal ideation. [employer] Voice Recognition This chart was completed in part utilizing [employer] Voice Recognition Software. Random word insertions, pronoun errors, and incomplete sentences are an occasional consequence of this system due to software limitations and ambient noise. Any questions or concerns about the content, text or information contained within the body of this dictation should be directly addressed to the provider for clarification.
[2016-05-24] MEDS ORDERED: INSULIN GLARGINE SOLOSTAR 100 UNITS/ML 3 ML PEN SC SCH (09:00)
[2016-05-24] MEDS ORDERED: ASPIRIN 81 MG ECTAB PO SCH (09:00)
[2016-05-24] MEDS ORDERED: INSULIN ASPART 100 UNITS/ML 3 ML PEN SC ONE (09:30)
[2016-05-24 09:35] LABS: BUN/CREATININE RATIO 17.9 (10-20); CALCIUM 9.6 mg/dl (8.5-10.1); CREATININE 0.73 mg/dl (0.60-1.20); POTASSIUM 4.5 mmol/L (3.5-5.1)
[2016-05-24 09:49] LABS: BETA-HYDROXYBUTYRATE 0.65 mg/dL (0.2-2.81)
--- NOTE | 2016-05-24 17:56 | Discharge Summary ---
Discharge Summary Date of Service May 24, 2016. 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 MRI Immunizations: Have You Had Influenza Vaccine: Unknown History of Tetanus Vaccine?: Unknown History of Pneumococcal: Unknown History of Hepatitis B Vaccine: Unknown Discharge Exam Patient's note by herself was not able to do any physical exam Hospital Course 45 y/o female admitted because of worsening/increasing pain of facial/head cellulitis: Recurrent head/facial cellulitis: Associated with Leukocytosis, poor controlled T2DM: Has been treated with IV antibiotic per infectious disease, Pain management consultation has requested because seems patient not agree the transition plan of "bridging IV pain medicine to oral pain medicine , Report severe headache, MRI of brain was done No acute intracranial traumatic. There are scattered foci of T2 signal abnormality within the subcortical and periventricular white matter. The appearance is nonspecific but typical for microangiopathic change. A demyelinating process could have a similar appearance but is considered less likely. Clinical correlation will be required. pt 's uncle has multiple sclerosis, will request neuro consult b/c " possible A demyelinating process", This morning case was discussed with Dr. Ring, who was requested to see patient as a client service consultant, however patient not available this morning she went to cafeteria without notified any nursing staff. Dr. Ring and me discussed the case, there is no concern about "demyelinating process" per Dr. Ring , however , the possible causes of patient's microangiopathic change, and recommend lifestyle modification include diabetic control control, hypertension and of smoking. I talked to patient about this, and the same time recommend start Aspirin, Per Dr. Ring's recommendation, I will discontinue consultation and patient is offered to be seen by Dr. Ring as an outpatient. I delivered all of this information to her yesterday Asthma: Continue home inhalers Anxiety/Depression: Stable continue home medication Insomnia: Patient has been significantly request using IV 10 Dilaudid for pain control since admission, we have a lot of discussion about the medication using and has requested pain management to see her Per report from nursing staff: this morning patient was requesting nursing staff to give her IV Dilaudid in "3 second", nurse was explaining to her "not able to give her right away because she was taking care of other patient" and patient went to the senior front end developer request nurse staff to be discharged right away . Later , patient just left by herself GI Prophylaxis: Maalox PRN, IV Zofran PRN, Colace and/or Milk of Mag PRN DVT prophylaxis: Lovenox 40 mg SQ q24 hrs, JON and SCDs Code Status: LEVEL I, FULL Total Time Spent: Less than 30 minutes This includes examination of the patient, discharge planning, medication reconciliation, and communication with other providers. Discharge Instructions Please refer to the electronic Patient Visit Report (Discharge Instructions) for additional information.
== END 2016-05-24 10:04 | disposition left against medical advice (07) | DRG 603 ==
LOC: ENRESERVTM → ENRESERVDT → C.EDB 03:51 → C.MS2W 08:51
PROVIDERS: ADMIT Hospitalist; ATTEND Hospitalist
DX: L03.211 Cellulitis of face (principal); L03.811 Cellulitis of head [any part, except face]; D72.829 Elevated white blood cell count, unspecified; J45.909 Unspecified asthma, uncomplicated; F32.9 Major depressive disorder, single episode, unspecified; F41.9 Anxiety disorder, unspecified; G47.00 Insomnia, unspecified; L30.9 Dermatitis, unspecified; L40.9 Psoriasis, unspecified; F17.200 Nicotine dependence, unspecified, uncomplicated; E11.65 Type 2 diabetes mellitus with hyperglycemia; Z79.4 Long term (current) use of insulin; Z82.49 Family history of ischemic heart disease and other diseases of the circulatory system

== ENCOUNTER → 2016-06-12 | Outpatient (CLI) | payer OTHER ==
[~2016-06-12] MED LIST changes: +CLIN1CAP51 PO; +FLUO40CA8 PO; -LSN/20125 PO; -NRN100 PO; +TRAZ100T29 PO
== END | disposition home or self-care (01) ==
LOC: C.LAB1850 09:12
PROVIDERS: ATTEND Physician Assistant
DX: L03.211 Cellulitis of face (principal); B37.0 Candidal stomatitis

== ENCOUNTER 2016-08-09 23:46 | Emergency (ER) | payer OTHER ==
[~2016-08-09] VITALS: Ht 170.2 cm; Wt 113.3 kg
[2016-08-09 23:49] VITALS: TEMP 36.6; Ht 170.2 cm; Wt 113.3 kg
[2016-08-10] MEDS ORDERED: XYLOCAINE 1%/SOD BICARB 20 ML VIAL INFIL ONE
[2016-08-10 00:42] VITALS: BP 131/66; PULSE 71; O2SAT 96
--- NOTE | 2016-08-10 04:05 | EMERGENCY ROOM VISIT NOTE ---
ED Visit Note First contact with patient: 23:53 CHIEF COMPLAINT: Finger laceration HISTORY OF PRESENT ILLNESS: This 45-year-old female patient presents to the emergency department after cutting the left second finger while trying to cut a loaf of [employer] bread this evening. The bleeding has stopped. Denies weakness or numbness of the finger. The patient has full range of motion of the fingers. The patient rates the pain as dull and 7/10. The patient denies any other injuries. The patient's tetanus shot is reportedly up to date. REVIEW OF SYSTEMS: A 6 system review of systems was completed with positives and pertinent negatives listed in the HPI. ALLERGIES: See EMR MEDICATIONS: See EMR PMH: See EMR SOCIAL HISTORY: Lives locally PHYSICAL EXAM: Vital Signs: Reviewed Nurse's notes, vital signs stable. GENERAL : White female, in no acute distress, well developed, well nourished. SKIN: There is a 1.5 cm long laceration on the distal aspect of the left second finger that goes partially through the distal fingernail. The edges gape apart with traction. There is no foreign material in the wound and it looks clean. There is no significant bleeding. No deep structures such as tendons, bones, or significant blood vessels are seen in the base of the wound. Extension and flexion of the finger is full and strong. Full range of motion of the wrist and other fingers. Capillary refill less than 2 seconds. Normal sensation to light and sharp touch. EMERGENCY DEPARTMENT COURSE: I examined the patient. Verbal consent was obtained to perform the procedure. Using sterile technique the wound was cleansed with Betadine. 5 ml of 1% buffered lidocaine was used to perform a digital block to anesthetize the patient. The area was sterilely draped. Once the patient was anesthetized, the wound was copiously irrigated under pressure with sterile saline. The wound was explored and there were no deep structures injured. The laceration was repaired using 2 simple interrupted 5-0 nylon sutures. The patient tolerated the procedure well. Hemostasis was achieved. The area was cleaned with sterile saline and dressed with bacitracin ointment and bandage. The patient was discharged home in good condition. Problem List Medical Problems: (1) Asthma Status: Chronic (2) Eczema Status: Chronic (3) Psoriasis Status: Chronic Current/Historical Medications Scheduled Clindamycin HCl (Clindamycin HCl), 2 CAP PO TID Fluoxetine (Prozac), 40 MG PO DAILY Insulin Aspart (Novolog Flexpen), 6 UNITS SC AC Insulin Glargine (Lantus Solostar), 20 UNIT SC QAM Trazodone Hcl (Trazodone), 100 MG PO HS Scheduled PRN Albuterol Hfa (Ventolin Hfa), 2 PUFFS INH QID PRN for Asthma Symptoms Alprazolam (Xanax), 1 MG PO TID PRN for Anxiety Ibuprofen (Advil), 600-800 MG PO Q8 PRN for Pain or Fever Allergies Coded Allergies: Avocado (Verified Allergy, Severe, SWELLING OF THROAT,ITCHING, 05/21/16) Banana (Verified Allergy, Severe, THROAT SWELLING,ITCHING, 05/21/16) Latex1 -Allergic Contact Dermititis (Verified Adverse Reaction, Mild, RASH ,ITCHING, 05/21/16) Vital Signs Date Time Temp Pulse Resp B/P (MAP) Pulse Ox O2 Delivery O2 Flow Rate FiO2 08/10/16 00:42 71 18 131/66 96 08/09/16 23:49 36.6 79 20 162/94 97 Room Air Medications Administered Medications (Trade) Dose Ordered Sig/Candelaria Route Start Time Stop Time Status Last Admin Dose Admin Lidocaine HCl (Buffered Lidocaine 1% Inj) 20 ml NOW ONCE INFIL 08/10/16 00:00 08/10/16 00:01 DC 08/10/16 00:20 20 ML Departure Information Impression Primary Impression: Finger laceration Dispostion Home / Self-Care Condition GOOD Forms HOME CARE DOCUMENTATION FORM, IMPORTANT VISIT INFORMATION Patient Instructions My [facility] Additional Instructions Keep wound clean and dry. Do not allow any crusting or dried blood to accumulate on sutures. If this occurs, use a mild soap/water on a Q-tip to clean the wound. Do not use Peroxide to clean the wound as this can delay healing Use an antibiotic ointment like Bacitracin for 3-4 days, then let wound dry. You may bathe and shower as normal, but DO NOT SOAK the wound. Suture removal in about 8-10 days with your Family Doctor or in the ER. Return sooner for any signs of infection, increasing redness, swelling, or drainage.
== END 2016-08-10 00:42 | disposition home or self-care (01) ==
LOC: C.EDB 23:48 → C.EDC 08-10 00:42
DX: S61.211A Laceration without foreign body of left index finger without damage to nail, initial encounter (principal); W45.8XXA Other foreign body or object entering through skin, initial encounter; J45.909 Unspecified asthma, uncomplicated; Z79.4 Long term (current) use of insulin; Z79.899 Other long term (current) drug therapy; Z91.018 Allergy to other foods; Z91.040 Latex allergy status

== ENCOUNTER → 2016-12-22 | Outpatient (CLI) | payer OTHER ==
[2016-12-22 17:34] LABS: CREATININE RANDOM URINE 19.9 mg/dl
[2016-12-22 17:52] LABS: ALT/SGPT 38 U/L (12-78); BLOOD UREA NITROGEN 12 mg/dl (7-18); BUN/CREATININE RATIO 19.5 (10-20); CALCIUM 10.2 mg/dl (8.5-10.1); CARBON DIOXIDE 26 mmol/L (21-32); CHLORIDE 101 mmol/L (98-107); CREATININE 0.61 mg/dl (0.60-1.20); GLUCOSE 285 mg/dl (70-99); POTASSIUM 4.1 mmol/L (3.5-5.1); SODIUM 135 mmol/L (136-145)
[2016-12-22 18:02] LABS: ALKALINE PHOSPHATASE 170 U/L (45-117); AST/SGOT 17 U/L (15-37); THYROID STIMULATING HORMONE 0.532 uIu/ml (0.300-4.500)
[2016-12-23 06:39] LABS: ESTIMATED AVERAGE GLUCOSE 318 mg/dl; HA1C FLAG Normal (Normal)
== END | disposition home or self-care (01) ==
LOC: C.LABPBG 15:29
PROVIDERS: ATTEND Family Medicine
DX: E11.9 Type 2 diabetes mellitus without complications (principal)

== ENCOUNTER → 2017-05-29 | Outpatient (CLI) | payer OTHER ==
[2017-05-29 17:26] LABS: ALBUMIN 3.7 gm/dl (3.4-5.0); ALKALINE PHOSPHATASE 166 U/L (45-117); ALT/SGPT 35 U/L (12-78); AST/SGOT 18 U/L (15-37); BLOOD UREA NITROGEN 17 mg/dl (7-18); CARBON DIOXIDE 24 mmol/L (21-32); CREATININE 0.99 mg/dl (0.60-1.20); GLUCOSE 461 mg/dl (70-99); POTASSIUM 4.1 mmol/L (3.5-5.1); SODIUM 134 mmol/L (136-145); TOTAL PROTEIN 7.9 gm/dl (6.4-8.2)
[2017-05-30 06:54] LABS: HEMOGLOBIN A1C 13.3 % (4.5-5.6)
== END | disposition home or self-care (01) ==
LOC: C.LABPBG 14:36
PROVIDERS: ATTEND Obstetrics & Gynecology
DX: E11.9 Type 2 diabetes mellitus without complications (principal); Z11.3 Encounter for screening for infections with a predominantly sexual mode of transmission

== ENCOUNTER 2021-10-24 03:10 | Observation (INO) ==
--- NOTE | 2021-10-24 04:15 | History & Physical Report ---
Date of Service October 24, 2021 Assessment & Plan (1) Stroke of right basal ganglia: Plan: (1) Stroke of right basal ganglia: Plan: 50yo female with HTN, HLP, DM, Tobacco use presenting with left facial droop that has been present for an undetermined amount of time. Remainder of neurological exam is unremarkable. Workup obtained in the ER with New lacunar infarct in the right basal ganglia.CTA head and neck are unremarkable. Patient is out of the window for tPA. Admit to medical telemetry Check MRI brain Check 2D echo Neurology consult appreciated Will initiate treatment with aspirin 81 mg p.o. daily as well as Plavix 75 mg p.o. daily Send hemoglobin A1c and lipid panel. Patient is intolerant to statins. States that when she took statins in the past she passed out.Is unwilling to try them again. (2) COVID-19: Plan: Patient with 1 day of cough, congestion, subjective fevers as well as body aches. Found to be COVID-19 positive during ER testing today. She is presently afebrile, hemodynamically stable, saturating 100% on room air Maintain isolation precautions Check CRP, ferritin, LDH with next blood draw No indication for acute treatment at this time given adequate oxygenation Lovenox for prophylaxis (3) Yeast dermatitis: Plan: Nystatin to groin folds and under breasts 3 times daily Monitor for progression (4) Musculoskeletal pain of right upper extremity: Plan: Patient with pain and swelling in the right biceps region. Pronounced muscle with flexion possibly suggestive of damage to the tendon Consult Ortho Pain control with Tylenol as needed (5) Hypertension: Plan: Chronic. Blood pressure elevated presently 157/116 Continue lisinopril 40 mg p.o. daily (6) Dyslipidemia: Plan: Lipid panel ordered Pending results patient may need Zetia versus PCSK9 Statin intolerant (7) Anxiety: Plan: Patient presently not taking anything for anxiety. We will try hydroxyzine 25 mg p.o. 3 times daily as needed for anxiety. Patient does report that she hates being in hospitals and feels very triggered, anxious and on edge. She has been mildly combative difficult with staff in the ER. She is not certain that she wants to stay in the hospital for continued workup. We discussed with her that we cannot hold her against her will and if she wants to leave she will need to sign out AGAINST MEDICAL ADVICE. (8) Type 2 diabetes mellitus: Plan: Overall poorly controlled Check hemoglobin A1c with next blood draw Lantus 18 units twice daily Insulin sliding scale Goal blood sugar 100-140 (2) COVID-19: (3) Yeast dermatitis: (4) Musculoskeletal pain of right upper extremity: (5) Hypertension: (6) Dyslipidemia: (7) Anxiety: (8) Type 2 diabetes mellitus: History of Present Illness Chief Complaint: Chief Complaint: Left facial droop Covid-19 Intertriginous rash Right bicep injury Primary Care Provider: NO PCP Bridget Sparks is a 51yo female with history of DM, HTN, HLP, Anxiety and PTSD presenting with several complaints. 1. She was noted several days ago to have a left facial droop. Her friend stated that her face looked different. She denies headache, visual changes, focal numbness/tingling or weakness. She has never had a stroke before. Found in the ER to have a subacute CVA. She is unsure exactly when the stroke happened but she thinks it may have been within the last 2-7 days. 2. She has had cough, congestion, fever and body aches x 1 day. Also loss of taste and smell. Tested POSITIVE for Covid-19 today 3. She has a worsening rash in her groin, upper thighs and below her breasts. She has been using Desitin, Vaseline and peroxide rinses. She had two areas of purulent drainage in the bilateral groin as well. 4. She has some pain and swelling in the right arm where she had blood work previously. Patient is very anxious and does not wish to stay in the hospital. ER Course: Tylenol Patient was admitted to the hospital but left AMA before being transported to her room. Several hours later she returned to the ER requesting admission again. Report she is too weak to be home. Allergies Allergy/AdvReac Type Severity Reaction Status Date / Time avocado Allergy Severe SWELLING Verified 10/23/21 22:21 OF THROAT,ITCHING banana Allergy Severe THROAT Verified 10/23/21 22:21 SWELLING,ITCHING latex AdvReac Intermediate RASH,ITCHIN Verified 10/23/21 22:21 G Urlcxeg-IZL-DbL Reductase AdvReac Intermediate could not Verified 10/23/21 22:21 Inhibitor stay awake [Dnzysyc-Qkm-Qep Reductase Inhibitor] Home Medications Medication Instructions Recorded Confirmed Type blood-glucose meter (OneTouch #1 ea 09/24/18 05/04/21 Rx Ultra2 Meter kit) pen needle, diabetic 32 gauge x #10 ea 10/15/18 05/04/21 History " (BD Camryn 2nd Gen Pen Needle) epinephrine 0.3 mg/0.3 mL 0.3 mg (0.3 mL) IM Q10M PRN 06/08/20 10/23/21 Rx injection, auto-injector (EpiPen anaphylaxis #2 ea 2-Jer) lisinopril 40 mg tablet 40 mg PO DAILY #90 tabs 03/30/21 10/23/21 Rx blood sugar diagnostic #300 ea 04/26/21 05/04/21 Rx blood sugar diagnostic (OneTouch #100 ea 04/27/21 05/04/21 Rx Ultra Test strips) albuterol sulfate 2.5 mg/3 mL 2.5 mg (3 mL) inhalation Q4H PRN 05/09/21 10/23/21 Rx (0.083 %) solution for nebulization shortness of breath or wheezing #1,080 mL albuterol sulfate 90 mcg/actuation 2 puff inhalation Q4 PRN Shortness 05/09/21 10/23/21 Rx aerosol inhaler Of Breath Or Wheezing #18 grams insulin lispro 100 unit/mL 42 unit subcut TIDM 08/25/21 10/23/21 History subcutaneous pen (Humalog KwikPen (U-100) Insulin) insulin glargine 100 unit/mL (3 68 unit (0.68 mL) subcut QAM #30 mL 10/14/21 10/23/21 Rx mL) subcutaneous pen (Lantus Solostar U-100 Insulin) Past Med/Surg History Medical History Anxiety Asthma Cellulitis and abscess of face (~12/2019) Depression Dyslipidemia Eczema Encounter for screening for malignant neoplasm of colon Encounter for screening for malignant neoplasm of rectum Hypertension Psoriasis PTSD (post-traumatic stress disorder) Type 2 diabetes mellitus Uncontrolled type 2 diabetes mellitus Surgical History H/O section Hx of hysterectomy Hx of salpingo-oophorectomy, bilateral S/P carpal tunnel release R hand Dec 2016, L hand Feb 2017 S/P endometrial ablation S/P rotator cuff repair R shoulder S/P tonsillectomy and adenoidectomy S/P tubal ligation Family History Father Hypertension Mother Diabetes Gallbladder disease Sister Anxiety Depression Drug abuse Brother Depression Drug abuse Social History Smoking Status: Current every day smoker Tobacco Type: Cigarettes Age Started Using Tobacco: 28; Second Hand Exposure: Yes; Tobacco Cessation Education Requested by Patient: No Hx Alcohol Use: No Hx Substance Use: Yes Last Used Substance: Unknown Preferred Language: Yoruba Communication Ability: Effective Silk Conditioner Required: No Beliefs That Will Affect Care: None marital status: Single Current Living Situation: Family Current Living Situation Comment: Adult Son (special needs) Feels Safe at Home: Yes Review of Systems Review of Systems: All systems reviewed & are unremarkable except as noted in HPI & below Physical Exam Physical Exam: General: patient resting comfortably, NAD, non-toxic in appearance, AA&O x 4 Skin: warm, dry,Well demarcated area of redness present in bilateral groins as well as under her breasts with satellite lesions. 2 areas of fluctuance with purulence expressed by ER physician HEENT: NC/AT, PERRL, EOMI, anicteric sclera, conjunctiva without injection, e xternal ear normal to inspection and nontender, nares patent, moist mucus membranes, dentition intact, no oropharyngeal lesions, neck supple, trachea midline, no LAD, no thyromegaly, no JVD Heart: +S1/S2, regular, no m/r/g Lungs: equal air entry bilaterally, no rales/rhonchi/wheezes Abd: +BS, soft, NT/ND, no masses/organomegaly/ascites Ext: warm, 2+ pulses in UE/LE bilaterally, no clubbing/cyanosis or edema, pronounced swelling of bicep muscle with flexion, Neuro: left facial droop Patient uncooperative with exam Results & Data Results & Data ([facility]) Vital Signs (Past 12 Hours) Vital Signs Temp Pulse Resp BP Pulse Ox O2 Del Method 10/24/21 03:14 36.4 C L 96 H 20 161/97 H 99 Room Air PG Care Time/CCT Total # of Minutes Spent Total Time Spent with Patient: Total time spent is greater than 50% in coordination of care (as documented) at patient's floor/unit and/or counseling patient: Coding Level of Care Code 96950 Initial Inpt Care Lvl 3 Diagnoses Stroke of right basal ganglia I63.81 COVID-19 U07.1 Yeast dermatitis B37.2 Musculoskeletal pain of right upper extremity M79.601 Hypertension I10 Dyslipidemia E78.5 Anxiety F41.9 Type 2 diabetes mellitus E11.9 Diabetes mellitus mcfp insulin use: with termite exterminator use (1) Type 2 diabetes mellitus Diabetes mellitus mcfp insulin use: with termite exterminator use
--- NOTE | 2021-10-24 05:23 | Emergency Department Note ---
History of Present Illness General Chief complaint: Headache Stated complaint: HEADACHE Time Seen by Provider: 10/24/21 03:21 History of Present Illness Maximum Pain Intensity: 3 This is a 51-year-old female returning to the emergency department requesting admission to the facility. The patient was seen and evaluated in this ER several hours ago and diagnosed with a right basal ganglia stroke and COVID-19. The patient case was discussed with the hospitalist service and admission orders were placed. Ultimately the patient left AMA despite extensive evaluation here in the ER. The patient has a lot of anxiety about hospitals and this seems to be a barrier to her medical care. She states that she continued to feel very weak on the way home and elected to return to the ER. Home Medications Medication Instructions Recorded Confirmed Type blood-glucose meter (OneTouch #1 ea 09/24/18 05/04/21 Rx Ultra2 Meter kit) pen needle, diabetic 32 gauge x #10 ea 10/15/18 05/04/21 History 532" (BD Camryn 2nd Gen Pen Needle) epinephrine 0.3 mg/0.3 mL 0.3 mg (0.3 mL) IM Q10M PRN 06/08/20 10/23/21 Rx injection, auto-injector (EpiPen anaphylaxis #2 ea 2-Jer) lisinopril 40 mg tablet 40 mg PO DAILY #90 tabs 03/30/21 10/23/21 Rx blood sugar diagnostic #300 ea 04/26/21 05/04/21 Rx blood sugar diagnostic (OneTouch #100 ea 04/27/21 05/04/21 Rx Ultra Test strips) albuterol sulfate 2.5 mg/3 mL 2.5 mg (3 mL) inhalation Q4H PRN 05/09/21 10/23/21 Rx (0.083 %) solution for nebulization shortness of breath or wheezing #1,080 mL albuterol sulfate 90 mcg/actuation 2 puff inhalation Q4 PRN Shortness 05/09/21 10/23/21 Rx aerosol inhaler Of Breath Or Wheezing #18 grams insulin lispro 100 unit/mL 42 unit subcut TIDM 08/25/21 10/23/21 History subcutaneous pen (Humalog KwikPen (U-100) Insulin) insulin glargine 100 unit/mL (3 68 unit (0.68 mL) subcut QAM #30 mL 10/14/21 10/23/21 Rx mL) subcutaneous pen (Lantus Solostar U-100 Insulin) Allergies Allergy/AdvReac Type Severity Reaction Status Date / Time avocado Allergy Severe SWELLING Verified 10/23/21 22:21 OF THROAT,ITCHING banana Allergy Severe THROAT Verified 10/23/21 22:21 SWELLING,ITCHING latex AdvReac Intermediate RASH,ITCHIN Verified 10/23/21 22:21 G Zrypbga-OZU-JyG Reductase AdvReac Intermediate could not Verified 10/23/21 22:21 Inhibitor stay awake [Wxuvjgl-Qkj-Uwg Reductase Inhibitor] Past Med/Surg History Medical History Anxiety Asthma Cellulitis and abscess of face (~12/2019) Depression Dyslipidemia Eczema Encounter for screening for malignant neoplasm of colon Encounter for screening for malignant neoplasm of rectum Hypertension Psoriasis PTSD (post-traumatic stress disorder) Type 2 diabetes mellitus Uncontrolled type 2 diabetes mellitus Surgical History H/O section Hx of hysterectomy Hx of salpingo-oophorectomy, bilateral S/P carpal tunnel release R hand Dec 2016, L hand Feb 2017 S/P endometrial ablation S/P rotator cuff repair R shoulder S/P tonsillectomy and adenoidectomy S/P tubal ligation Family History Father Hypertension Mother Diabetes Gallbladder disease Sister Anxiety Depression Drug abuse Brother Depression Drug abuse Social History Smoking Status: Current every day smoker Tobacco Type: Cigarettes Age Started Using Tobacco: 28; Hx Alcohol Use: No Hx Substance Use: No Preferred Language: Persian marital status: Single Current Living Situation Comment: Adult Son (special needs) Feels Safe at Home: Yes Review of Systems A total of 6 systems reviewed and were otherwise negative Physical Exam Vital Signs Vital Signs - 24 hr 10/24/21 03:14 Temperature 36.4 C L Temperature Source Oral Pulse Rate 96 H Respiratory Rate 20 Respiratory Effort / Characteristics Non-Labored Spontaneous Respiratory Depth Normal Blood Pressure 161/97 H Blood Pressure Mean 118 Pulse Oximetry 99 Oxygen Delivery Method Room Air Sepsis New/Unexplained Change in Mental Status N/A Sepsis Action Taken by Nursing No Action Required VITALS: Vitals are noted on the nurse's note and reviewed by myself. Vital signs stable. GENERAL: Tearful white female who is in no acute distress. She is nontoxic. HEAD: Normocephalic atraumatic. HEART: Regular rate and rhythm without murmurs gallops or rubs. LUNGS: Clear to auscultation bilaterally without wheezes, rales or rhonchi. No retractions or accessory muscle use. Medical Decision Making Differential Diagnosis Differential diagnosis: Etiologies such as vasovagal event, infection, anemia, hypoglycemia, hypovolemia, electrolyte abnormalities, dysrhythmias, cardiac ischemia, cardiac tamponade, valvular heart disease, structural heart disease, seizure, vascular stenosis/dissection, pulmonary embolism, intracerebral event, toxicological process, neurologic event, as well as others were entertained. MDM Narrative Physical exam and history were performed. Nursing notes, EMR, and Medication List were personally reviewed. Patient appears to have changed her mind about being admitted to the hospital. She was seen few hours ago and left AMA after diagnosis of basal ganglier stroke and COVID-19. She would like to stay in the hospital at this time. I did reach out to the hospitalist team who did evaluate the patient at bedside. Please see their dictation for further patient course, plan, disposition. The chart was completed utilizing [employer] Speech Voice Recognition Software. G rammatical errors, random word insertions, pronoun errors, and incomplete sentences are an occasional consequence of this system due to software limitations, ambient noise, and hardware issues. Any formal questions or concerns about the content, text, or information contained within the body of this dictation should be directly addressed to the provider for clarification. . Impression & Plan Stroke of right basal ganglia, COVID-19 Discharge Plan Visit Data Chief Complaint: Headache Stated Complaint: HEADACHE ED Provider: Vishal Fernandez ED Midlevel Provider: Cameron Craig Discharge Problem: Stroke of right basal ganglia, COVID-19 Discharge Instructions Interventions: ED Discharge Assessment Last Done: 10/24/21 05:17
[2021-10-24] MEDS ORDERED: ACETAMINOPHEN 325 MG TAB PO PRN (05:24)
[2021-10-24] MEDS ORDERED: ONDANSETRON INJ 2 MG/ML 2 ML VIAL IV PRN (05:24)
[2021-10-24] MEDS ORDERED: CARBOHYDRATES FOR HYPOGLYCEMIA PO PRN (05:24)
[2021-10-24] MEDS ORDERED: GLUCOSE 40% GEL 15 GM TUBE PO PRN (05:24)
[2021-10-24] MEDS ORDERED: GLUCAGON FOR INJ 1 MG VIAL SQ PRN (05:24)
[2021-10-24] MEDS ORDERED: DEXTROSE 50% 50 ML SYRINGE IV PRN (05:24)
[2021-10-24] MEDS ORDERED: ALBUTEROL HFA 8 GM INHALER INH PRN (05:24)
[2021-10-24] MEDS ORDERED: hydrOXYzine HCl 25 MG TAB PO PRN (05:24)
[2021-10-24] MEDS ORDERED: GLUCOSE 10 TAB/TUBE PO PRN (05:24)
[2021-10-24] MEDS ORDERED: INSULIN ASPART PER UNIT SC SCH (07:30)
[2021-10-24] MEDS ORDERED: ENOXAPARIN INJ 40 MG/0.4 ML SYR SQ SCH (08:00)
[2021-10-24] MEDS ORDERED: NYSTATIN OINT 15 GM TUBE EXT SCH (09:00)
[2021-10-24] MEDS ORDERED: CLOPIDOGREL BISULFATE 75 MG TAB PO SCH (09:00)
[2021-10-24] MEDS ORDERED: lisinopril 40 MG TAB PO SCH (09:00)
[2021-10-24] MEDS ORDERED: ASPIRIN 81 MG ECTAB PO SCH (09:00)
[2021-10-24] MEDS ORDERED: LANTUS PER UNIT CHARGE SQ SCH (09:00)
[2021-10-24] MEDS ORDERED: NICOTINE 21 MG/24 HR TDSY TD SCH (09:00)
--- NOTE | 2021-10-24 14:08 | Discharge Summary ---
Date of Service October 24, 2021 Admission HPI Per Admitting Provider Bridget Sparks is a 51yo female with history of DM, HTN, HLP, Anxiety and PTSD presenting with several complaints. 1. She was noted several days ago to have a left facial droop. Her friend stated that her face looked different. She denies headache, visual changes, focal numbness/tingling or weakness. She has never had a stroke before. Found in the ER to have a subacute CVA. She is unsure exactly when the stroke happened but she thinks it may have been within the last 2-7 days. 2. She has had cough, congestion, fever and body aches x 1 day. Also loss of taste and smell. Tested POSITIVE for Covid-19 today 3. She has a worsening rash in her groin, upper thighs and below her breasts. She has been using Desitin, Vaseline and peroxide rinses. She had two areas of purulent drainage in the bilateral groin as well. 4. She has some pain and swelling in the right arm where she had blood work previously. Patient is very anxious and does not wish to stay in the hospital. ER Course: Tylenol Patient was admitted to the hospital but left AMA before being transported to her room. Several hours later she returned to the ER requesting admission again. Report she is too weak to be home. Admission Exam Per Admitting Provider General: patient resting comfortably, NAD, non-toxic in appearance, AA&O x 4 Skin: warm, dry,Well demarcated area of redness present in bilateral groins as well as under her breasts with satellite lesions. 2 areas of fluctuance with purulence expressed by ER physician HEENT: NC/AT, PERRL, EOMI, anicteric sclera, conjunctiva without injection, external ear normal to inspection and nontender, nares patent, moist mucus membranes, dentition intact, no oropharyngeal lesions, neck supple, trachea midline, no LAD, no thyromegaly, no JVD Heart: +S1/S2, regular, no m/r/g Lungs: equal air entry bilaterally, no rales/rhonchi/wheezes Abd: +BS, soft, NT/ND, no masses/organomegaly/ascites Ext: warm, 2+ pulses in UE/LE bilaterally, no clubbing/cyanosis or edema, pronounced swelling of bicep muscle with flexion, Neuro: left facial droop Patient uncooperative with exam Principal Diagnosis Acute CVA of Right Basal Ganglia Discharge Exam Was not performed as patient left AMA by the time I was assigned this patient as daytime provider. Discharge Data Allergies Allergy/AdvReac Type Severity Reaction Status Date / Time avocado Allergy Severe SWELLING Verified 10/23/21 22:21 OF THROAT,ITCHING banana Allergy Severe THROAT Verified 10/23/21 22:21 SWELLING,ITCHING latex AdvReac Intermediate RASH,ITCHIN Verified 10/23/21 22:21 G Gtjcgvj-YPV-UyC Reductase AdvReac Intermediate could not Verified 10/23/21 22:21 Inhibitor stay awake [Wzafraa-Ivf-Bki Reductase Inhibitor] Consultations 10/24/21 03:32 ED Decision to Admit Stat 10/24/21 04:23 Consult Orthopedic Surgery Routine 10/24/21 05:24 Consult Neurology Routine Hospital Course (1) Stroke of right basal ganglia: (1) Stroke of right basal ganglia: Plan: 50yo female with HTN, HLP, DM, Tobacco use presenting with left facial droop that has been present for an undetermined amount of time. Remainder of neurological exam is unremarkable. Workup obtained in the ER with New lacunar infarct in the right basal ganglia.CTA head and neck are unremarkable. Patient is out of the window for tPA. Admit to medical telemetry Check MRI brain Check 2D echo Neurology consult appreciated Will initiate treatment with aspirin 81 mg p.o. daily as well as Plavix 75 mg p.o. daily Send hemoglobin A1c and lipid panel. Patient is intolerant to statins. States that when she took statins in the past she passed out.Is unwilling to try them again. - Patient left AMA before above steps could be taken, and before day time rounding team was even able to see her (2) COVID-19: Plan: Patient with 1 day of cough, congestion, subjective fevers as well as body aches. Found to be COVID-19 positive during ER testing today. She is presently afebrile, hemodynamically stable, saturating 100% on room air Maintain isolation precautions Check CRP, ferritin, LDH with next blood draw No indication for acute treatment at this time given adequate oxygenation Lovenox for prophylaxis - Patient left AMA as stated above (3) Hypertension: Plan: Chronic. Blood pressure elevated presently 157/116 Continue lisinopril 40 mg p.o. daily Patient does report that she hates being in hospitals and feels very triggered, anxious and on edge. She has been mildly combative difficult with staff in the ER. She is not certain that she wants to stay in the hospital for continued workup. We discussed with her that we cannot hold her against her will and if she wants to leave she will need to sign out AGAINST MEDICAL ADVICE. She left AMA. (2) COVID-19: (3) Yeast dermatitis: (4) Musculoskeletal pain of right upper extremity: (5) Hypertension: (6) Dyslipidemia: (7) Anxiety: (8) Type 2 diabetes mellitus: Total Time Total Time Spent Total Time Spent (In Minutes): 20 minutes Discharge Plan Discharge Items Patient Disposition: Against Medical Advice Reason For Visit: CVA, COVID-19 Activity: As commented below Activity Comment: Left AMA Non-emergency contact: Primary Care Provider Follow-up/Referrals: PCP,NO [Primary Care Provider] - Pending Studies at Discharge: Yes (MRI, Echo, Lipids, A1C - patient left AMA) Stand-Alone Forms: [employer], Smoking Cessation Medications and DC Order Prescriptions: Continued epinephrine [EpiPen 2-Jer] 0.3 mg/0.3 mL auto-injector 0.3 mg IM Q10M PRN (Reason: anaphylaxis) Qty: 2 1RF Rx Instructions: for 2 doses (DME) OneTouch Ultra Blue Test Strip Strip See Dose Instructions .ROUTE .MEDSUPPLY Qty: 300 3RF Dose Instruction: As directed Rx Instructions: Testing BS QID. (DME) OneTouch Ultra Test Strip See Rx Instructions .Route Qty: 100 3RF Rx Instructions: Testing blood sugar four times daily albuterol sulfate 90 mcg/actuation HFA aerosol inhaler 2 puff Inhalation Q4 PRN (Reason: Shortness Of Breath Or Wheezing) Qty: 18 2RF albuterol sulfate 2.5 mg /3 mL (0.083 %) solution for nebulization 2.5 mg INH Q4H PRN (Reason: shortness of breath or wheezing) Qty: 1080 1RF insulin glargine [Lantus Solostar U-100 Insulin] 100 unit/mL (3 mL) insulin pen 68 unit subcut QAM Qty: 30 5RF (DME) blood-glucose meter [OneTouch Ultra2 Meter] kit See Dose Instructions .ROUTE .MEDSUPPLY Qty: 1 0RF Dose Instruction: As directed Rx Instructions: As directed (DME) pen needle, diabetic [BD Camryn 2nd Gen Pen Needle] 32 gauge x 5/32" nee dle See Dose Instructions .ROUTE .MEDSUPPLY Qty: 10 Rx Instructions: 4 needles per day lisinopril 40 mg tablet 40 mg PO DAILY Qty: 90 1RF insulin lispro [Humalog KwikPen Insulin] 100 unit/mL insulin pen 42 unit subcut TIDM Rx Instructions: Inject 42 units three times daily with meals ; TDD 126 units Discharge Orders: Left Against Medical Advice (Routine); Ordered 10/24/21 Ordered By: Pepper Olivo Admission Data Admit Date/Time: 10/24/21 04:23 Attending Provider: Ranjit See Admit Provider: Pepper Olivo Primary Care Provider: PCP,NO Other Providers: Pepper Olivo ; Efrain Wallace ; Ricardo Ring Supervising Physician Co-Signing Physician Notes As above. Patient was assigned to our team in the morning, but before we were ever able to see her, were informed that she left AGAINST MEDICAL ADVICE. Resident Activity Tracking Resident Involvement: Resident Care Provided Care Provided: Adult Hospital Medicine
== END 2021-10-24 06:37 | disposition left against medical advice (07) ==
LOC: ED 03:10 → 2S 04:23 → INTOOBSV 04:23 → SUATTDRO 04:23 → 2S 05:17

== ENCOUNTER 2024-09-08 01:53 | Observation (INO) ==
[2024-09-08 02:02] VITALS: TEMP 97.9
--- NOTE | 2024-09-08 02:08 | Emergency Department Note ---
History of Present Illness General Chief complaint: Vomiting Stated complaint: N/V,FEVER,HEADACHE Time Seen by Provider: 09/08/24 02:02 History of Present Illness This 54-year-old female presents ER for nausea and vomiting, epigastric discomfort, headache and generalized illness for the past few days. No documented temperature. Patient denies chest pain, dyspnea, diarrhea. She is unable to keep fluids or her medications down. She cares for her father that is ill. Home Medications Medication Instructions Recorded Confirmed Type blood sugar diagnostic #300 ea 04/26/21 10/08/23 Rx albuterol sulfate 2.5 mg/3 mL 2.5 mg (3 mL) inhalation Q4H PRN 05/09/21 09/08/24 Rx (0.083 %) solution for nebulization shortness of breath or wheezing #1,080 mL furosemide 40 mg tablet 40 mg PO DAILY PRN weight gain #30 04/24/22 09/08/24 Rx tabs blood sugar diagnostic (OneTouch #100 ea 09/20/22 10/08/23 Rx Ultra Test strips) aspirin 81 mg tablet,delayed 81 mg PO DAILY #90 tabs 06/28/23 09/08/24 Rx release (Adult Aspirin Regimen) semaglutide 0.25 mg or 0.5 mg (2 0.5 mg (0.736 mL) subcut Q7D #3 mL 09/21/23 09/08/24 Rx mg/3 mL) subcutaneous pen injector (Ozempic) albuterol sulfate 90 mcg/actuation 2 puff inhalation Q4 PRN Shortness 10/08/23 09/08/24 Rx aerosol inhaler Of Breath Or Wheezing #18 grams ondansetron HCl 4 mg tablet 4 mg PO DAILY #30 tabs 10/11/23 09/08/24 Rx clopidogrel 75 mg tablet (Plavix) 75 mg PO DAILY #90 tabs 11/29/23 09/08/24 Rx blood-glucose sensor (Dexcom G7 #12 ea 01/07/24 Rx Sensor device) amlodipine 5 mg tablet 5 mg PO HS #90 tabs 02/11/24 09/08/24 Rx pen needle, diabetic 32 gauge x #200 ea 03/24/24 Rx 5/32" (BD Camryn 2nd Gen Pen Needle) ezetimibe 10 mg tablet 10 mg PO DAILY #90 tabs 03/31/24 09/08/24 Rx carvedilol 6.25 mg tablet 6.25 mg PO BID 09/08/24 09/08/24 History cholecalciferol (vitamin D3) 50 50 mcg PO DAILY 09/08/24 09/08/24 History mcg (2,000 unit) capsule (Vitamin D3) epinephrine 0.3 mg/0.3 mL 0.3 mg IM DIRECTED PRN 09/08/24 09/08/24 History injection, auto-injector (EpiPen anaphylaxis 2-Jer) hydrocortisone 2.5 % topical cream 1 applic topical BID PRN Skin 09/08/24 09/08/24 History Irritation insulin glargine 100 unit/mL (3 68 unit subcut QAM 09/08/24 09/08/24 History mL) subcutaneous pen (Lantus Solostar U-100 Insulin) insulin lispro 100 unit/mL 15 unit subcut TIDM 09/08/24 09/08/24 History subcutaneous pen (Humalog KwikPen (U-100) Insulin) Allergies Allergy/AdvReac Type Severity Reaction Status Date / Time avocado Allergy Severe SWELLING Verified 09/08/24 02:14 OF THROAT,ITCHING banana Allergy Severe THROAT Verified 09/08/24 02:14 SWELLING,ITCHING pollen extracts Allergy Intermediate ITCHY Verified 09/08/24 02:14 EYES, SNEEZING, CONGESTION latex AdvReac Intermediate RASH,ITCHIN Verified 09/08/24 02:14 G Tmlgwig-IBE-RkN Reductase AdvReac Intermediate could not Verified 09/08/24 02:14 Inhibitor stay awake [Ldswdxy-Coj-Rlx Reductase Inhibitor] Past Med/Surg History Problem List (Updated 09/08/24 @ 05:04 by Kristin Robledo PA-C) Elevated troponin (Acute) Asymptomatic bacteriuria Dehydration (Acute) Nausea & vomiting (Acute) Acute UTI (Acute) Lumbar facet joint syndrome Chronic low back pain Spondylolisthesis of lumbosacral region Vitamin D deficiency Cardiomyopathy Hyperlipidemia Microalbuminuria Obesity Hyperparathyroidism H/O hyperparathyroidism Wrist tendonitis Rupture of right proximal biceps tendon Hypercalcemia History of CVA (cerebrovascular accident) (~09/2021) Psoriasis Eczema PTSD (post-traumatic stress disorder) Hypertension Dyslipidemia Depression Anxiety Asthma Pulmonary nodule Type 2 diabetes mellitus Asthma Ovarian cyst Medical History COVID-19 Uncontrolled type 2 diabetes mellitus Cellulitis and abscess of face (~12/2019) Surgical History Hx of salpingo-oophorectomy, bilateral S/P endometrial ablation S/P tubal ligation S/P tonsillectomy and adenoidectomy S/P rotator cuff repair R shoulder Hx of hysterectomy H/O section S/P carpal tunnel release R hand Dec 2016, L hand Feb 2017 Family History Father Hypertension Prostate cancer Mother Diabetes Gallbladder disease Dementia Sister Anxiety Depression Drug abuse Brother Depression Drug abuse Grandmother (Maternal) Dementia Social History Smoking Status: Current every day smoker Tobacco Type: Cigarettes Age Started Using Tobacco: 28; packs per day: 1; Second Hand Exposure: Yes; Do You Dip or Chew Tobacco: No; Hx Alcohol Use: No Hx Substance Use: No Preferred Language: Frisian Communication Ability: Effective Visual Impairment: No Limitations Hearing Ability: Normal Food Safety Technician Required: No Beliefs That Will Affect Care: None marital status: Single Current Living Situation: Family Current Living Situation Comment: Adult Son (special needs) current occupational status: employed current occupation: childcare director Feels Safe at Home: Yes Diet: regular Diet Comment: regular caffeine: Yes during the past year weight has: remained stable Dental Care, Regularly: No Physical Activity Frequency: Daily Seatbelt Use: always Sunscreen Use: Yes Review of Systems A total of 10 systems reviewed and were otherwise negative Physical Exam Vital Signs Vital Signs - 24 hr 09/08/24 01:58 09/08/24 02:17 09/08/24 02:31 Temperature 36.6 C Temperature Source Oral Pulse Rate 108 H 88 86 Pulse Rhythm Regular Pulse Strength Normal Respiratory Rate 18 16 Respiratory Effort / Characteristics Non-Labored Spontaneous Respiratory Depth Normal Respiratory Pattern Regular Blood Pressure 100/68 103/79 Blood Pressure Mean 78 81 Blood Pressure Position Sitting Pulse Oximetry 98 99 Oxygen Delivery Method Room Air Sepsis Recent Fever Within 48 Hours Yes Sepsis New/Unexplained Change in Mental Status N/A Sepsis Action Taken by Nursing No Action Required 09/08/24 03:00 09/08/24 03:53 Temperature Temperature Source Pulse Rate 91 H 81 Pulse Rhythm Pulse Strength Respiratory Rate 16 20 Respiratory Effort / Characteristics Respiratory Depth Respiratory Pattern Blood Pressure 162/85 H 164/72 H Blood Pressure Mean 121 113 Blood Pressure Position Pulse Oximetry 94 97 Oxygen Delivery Method Sepsis Recent Fever Within 48 Hours Sepsis New/Unexplained Change in Mental Status Sepsis Action Taken by Nursing VITALS: Vitals are noted on the nurse's note and reviewed by myself. Vital signs stable. GENERAL: Pleasant patient, in no acute distress, nondiaphoretic, well-developed well-nourished. SKIN: Capillary reflex less than 2 seconds. HEENT: Normocephalic. PERRLA. EOMI. Nares patent. Mucous membranes mildly dry. Neck is supple without nuchal rigidity. HEART: Regular rate and rhythm LUNGS: Clear to auscultation bilaterally without wheezes, rales or rhonchi. No retractions or accessory muscle use. ABDOMEN: Positive bowel sounds x 4. Normal tympanic percussion. Soft, nontender, without masses or organomegaly. Romero sign negative. No guarding or rebound tenderness. no CVA tenderness MUSCULOSKELETAL: No gross musculoskeletal defects. NEURO: Patient was alert and oriented to person place and time. No focal neurological deficits. Course Administered Medications Discontinued Medications Sodium Chloride (Nss) 1,000 mls @ 999 mls/hr IV .Q1H1M STA Stop: 09/08/24 03:05 Last Infusion: 09/08/24 03:11 Dose: Infused Documented By: Admin: 09/08/24 02:13 Dose: 999 mls/hr Documented By: NOMI Famotidine (Pepcid 20mg Iv Push) 20 mg in 5 mls @ 2.5 mls/min IV NOW STA Stop: 09/08/24 02:06 Last Admin: 09/08/24 02:15 Dose: 2.5 mls/min Documented By: NOMI Sodium Chloride (Nss) 1,000 mls @ 999 mls/hr IV .Q1H1M ONE Stop: 09/08/24 04:04 Last Admin: 09/08/24 03:11 Dose: 999 mls/hr Documented By: LEONID Acetaminophen (Ofirmev) 1,000 mg in 100 mls @ 400 mls/hr IV NOW STA Stop: 09/08/24 03:33 Last Infusion: 09/08/24 04:00 Dose: Infused Documented By: Admin: 09/08/24 03:27 Dose: 400 mls/hr Documented By: RAQUEL Ceftriaxone Sodium (Rocephin) 2,000 mg in 50 mls @ 100 mls/hr IV NOW STA Stop: 09/08/24 04:09 Last Infusion: 09/08/24 04:40 Dose: Infused Documented By: Admin: 09/08/24 04:00 Dose: 100 mls/hr Documented By: RAQUEL Ioversol (Optiray 320 125ml) 125 ml IV ONCE ONE Stop: 09/08/24 03:50 Last Admin: 09/08/24 03:50 Dose: 118 ml Documented By: SAJAN Ondansetron HCl (Ondansetron Inj 2 Mg/Ml 2 Ml Vial) 4 mg IV NOW STA Stop: 09/08/24 02:06 Last Admin: 09/08/24 02:12 Dose: 4 mg Documented By: NOMI Medical Decision Making Medical Records Attestation: I reviewed the patient's medical records. Home Medications Current Medication List: was personally reviewed by me Laboratory Data Attestation: I reviewed the patient's lab results. 09/08/24 02:06 09/08/24 02:05 Lab Results 09/08/24 09/08/24 09/08/24 Range/Units 02:05 02:06 02:07 WBC 12.08 H (4.8-10.8) K/ul RBC 6.76 H (4.20-5.40) M/uL Hgb 17.3 H (12.0-16.0) g/dl Hct 54.0 H (37.0-47.0) % MCV 79.9 L (80.0-100.0) fL MCH 25.6 (25.0-34.0) pg MCHC 32.0 (32.0-36.0) g/dL RDW Std Deviation 42.2 (36.4-46.3) fL RDW Coeff of Tre 16.3 H (11.5-14.5) % Plt Count 340 (130-400) K/uL MPV 9.8 (9.4-12.4) fL Immature Gran % (Auto) 0.2 % Neut % (Auto) 72.7 % Lymph % (Auto) 19.3 % [place] % (Auto) 6.0 % Eos % (Auto) 0.9 % Baso % (Auto) 0.9 % Neut # (Auto) 8.78 H (1.40-6.50) K/uL Lymph # (Auto) 2.33 (1.20-3.40) K/uL [place] # (Auto) 0.72 H (0.11-0.59) K/uL Eos # (Auto) 0.11 (0.00-0.50) K/uL Baso # (Auto) 0.11 (0.00-0.20) K/uL Immature Gran # (Auto) 0.03 (0.01-0.20) K/uL VBG pH 7.43 H (7.36-7.41) VBG pCO2 47 (38-50) mmHg VBG pO2 24 mmHg VBG HCO3 31 mmol/L VBG O2 Saturation < 60.0 % VBG Base Excess 5.8 mEq/L Sodium 141 (136-145) mmol/L Potassium 3.8 (3.5-5.1) mmol/L Chloride 103 (98-107) mmol/L Carbon Dioxide 29 (21-32) mmol/L Anion Gap 9 (3-11) BUN 18 (6-23) mg/dl Creatinine 0.97 (0.6-1.2) mg/dl Est Cr Clr Drug Dosing 79.6 ml/min eGFR 68.58 BUN/Creatinine Ratio 18.6 (10-20) Glucose 208 H (70-99(Fasting)) mg/dl Calcium 10.9 H (8.6-10.3) mg/dl Magnesium 2.0 (1.7-2.4) mg/dl Total Bilirubin 0.7 (0.2-1.0) mg/dl AST 25 (13-39) U/L ALT 23 (7-52) U/L Alkaline Phosphatase 114 H (34-104) U/L Troponin I High Sens 57.2 H* (0-14) pg/ml Total Protein 9.3 H (6.0-8.3) gm/dl Albumin 4.5 (3.4-5.0) gm/dl Globulin 4.8 H (2.5-4.0) gm/dl Albumin/Globulin Ratio 0.9 (0.9-2) Lipase 32 (11-82) U/L Urine Color Urine Appearance (Clear) Urine pH (4.5-7.5) Ur Specific [place] (1.000-1.030) Urine Protein (Negative) Urine Glucose (UA) (Negative) Urine Ketones (Negative) Urine Blood (Negative) Urine Nitrite (Negative) Urine Bilirubin (Negative) Urine Urobilinogen (Negative) Ur Leukocyte Esterase (Negative) Urine WBC (Auto) (0-5) /hpf Urine RBC (Auto) (0-2) /hpf U Hyaline Cast (Auto) (0-2) /lpf U Epithel Cells (Auto) (0-2) /hpf Urine Bacteria (Auto) (None Seen) Hyaline Casts (None Presnt) /lpf Urine Comment Adenovirus (PCR) Not Detected (NotDetected) B. pertussis DNA (PCR) Not Detected (NotDetected) B.parapertussis DNA PCR Not Detected (NotDetected) C. pneumoniae DNA (PCR) Not Detected (NotDetected) Coronavirus OC43 (PCR) Not Detected (NotDetected) Coronavirus HKU1 (PCR) Not Detected (NotDetected) Coronavirus 229E (PCR) Not Detected (NotDetected) SARS-CoV-2 (PCR) Not Detected (NotDetected) Coronavirus NL63 (PCR) Not Detected (NotDetected) Human Metapneumovir PCR Not Detected (NotDetected) Influenza Type A (PCR) Not Detected (NotDetected) Influenza Type B (PCR) Not Detected (NotDetected) M. pneumoniae (PCR) Not Detected (NotDetected) Parainfluenza 1 (PCR) Not Detected (NotDetected) Parainfluenza 2 (PCR) Not Detected (NotDetected) Parainfluenza 3 (PCR) Not Detected (NotDetected) Parainfluenza 4 (PCR) Not Detected (NotDetected) RSV (PCR) Not Detected (NotDetected) Entero/Rhino (PCR) Not Detected (NotDetected) 09/08/24 09/08/24 Range/Units 03:12 04:08 WBC (4.8-10.8) K/ul RBC (4.20-5.40) M/uL Hgb (12.0-16.0) g/dl Hct (37.0-47.0) % MCV (80.0-100.0) fL MCH (25.0-34.0) pg MCHC (32.0-36.0) g/dL RDW Std Deviation (36.4-46.3) fL RDW Coeff of Tre (11.5-14.5) % Plt Count (130-400) K/uL MPV (9.4-12.4) fL Immature Gran % (Auto) % Neut % (Auto) % Lymph % (Auto) % Louis[place] % (Auto) % Eos % (Auto) % Baso % (Auto) % Neut # (Auto) (1.40-6.50) K/uL Lymph # (Auto) (1.20-3.40) K/uL [place] # (Auto) (0.11-0.59) K/uL Eos # (Auto) (0.00-0.50) K/uL Baso # (Auto) (0.00-0.20) K/uL Immature Gran # (Auto) (0.01-0.20) K/uL VBG pH (7.36-7.41) VBG pCO2 (38-50) mmHg VBG pO2 mmHg VBG HCO3 mmol/L VBG O2 Saturation % VBG Base Excess mEq/L Sodium (136-145) mmol/L Potassium (3.5-5.1) mmol/L Chloride (98-107) mmol/L Carbon Dioxide (21-32) mmol/L Anion Gap (3-11) BUN (6-23) mg/dl Creatinine (0.6-1.2) mg/dl Est Cr Clr Drug Dosing ml/min eGFR BUN/Creatinine Ratio (10-20) Glucose (70-99(Fasting)) mg/dl Calcium (8.6-10.3) mg/dl Magnesium (1.7-2.4) mg/dl Total Bilirubin (0.2-1.0) mg/dl AST (13-39) U/L ALT (7-52) U/L Alkaline Phosphatase (34-104) U/L Troponin I High Sens 52.2 H* (0-14) pg/ml Total Protein (6.0-8.3) gm/dl Albumin (3.4-5.0) gm/dl Globulin (2.5-4.0) gm/dl Albumin/Globulin Ratio (0.9-2) Lipase (11-82) U/L Urine Color Yellow Urine Appearance Cloudy A (Clear) Urine pH 6.5 (4.5-7.5) Ur Specific [place] 1.024 (1.000-1.030) Urine Protein 3+ H (Negative) Urine Glucose (UA) Trace H (Negative) Urine Ketones 1+ H (Negative) Urine Blood Trace H (Negative) Urine Nitrite Positive A (Negative) Urine Bilirubin Negative (Negative) Urine Urobilinogen Negative (Negative) Ur Leukocyte Esterase 2+ H (Negative) Urine WBC (Auto) >50 H (0-5) /hpf Urine RBC (Auto) 3-5 H (0-2) /hpf U Hyaline Cast (Auto) 6-10 H (0-2) /lpf U Epithel Cells (Auto) 3-5 H (0-2) /hpf Urine Bacteria (Auto) 4+ H (None Seen) Hyaline Casts Present A (None Presnt) /lpf Urine Comment Adenovirus (PCR) (NotDetected) B. pertussis DNA (PCR) (NotDetected) B.parapertussis DNA PCR (NotDetected) C. pneumoniae DNA (PCR) (NotDetected) Coronavirus OC43 (PCR) (NotDetected) Coronavirus HKU1 (PCR) (NotDetected) Coronavirus 229E (PCR) (NotDetected) SARS-CoV-2 (PCR) (NotDetected) Coronavirus NL63 (PCR) (NotDetected) Human Metapneumovir PCR (NotDetected) Influenza Type A (PCR) (NotDetected) Influenza Type B (PCR) (NotDetected) M. pneumoniae (PCR) (NotDetected) Parainfluenza 1 (PCR) (NotDetected) Parainfluenza 2 (PCR) (NotDetected) Parainfluenza 3 (PCR) (NotDetected) Parainfluenza 4 (PCR) (NotDetected) RSV (PCR) (NotDetected) Entero/Rhino (PCR) (NotDetected) Imaging Data Attestation: I personally reviewed and interpreted this imaging study as follows: Radiologist's Impression: Head CTA 09/08/24 03:18 EXAM: CT angio head wo/w CLINICAL HISTORY: VALLADARES TECHNIQUE: Contrast enhanced thin slice CT angiography scan of the cerebral vessels was performed with and without intravenous contrast. Angiographic images were processed, 3D MIP images were acquired for interpretation. Contiguous axial images were obtained. Reformatted coronal and sagittal images were also reviewed. If IV contrast material had not been administered, the likelihood of detecting abnormalities relevant to the patients condition would have been substantially decreased. CT scan was performed according to ALARA (as low as reasonable achievable). COMPARISON: Sep 19:49:54 CELLULAR PLASTICS CUTTER. FINDINGS: Chronic microvascular ischemic changes are noted. Age related cerebral atrophy is seen. Chronic infarct is noted in right ganglio-capsular region. No obvious acute neuroparenchymal abnormality detected. No evidence of space occupying lesion, hemorrhage, edema, mass effect, midline shift, extra axial collection, or hydrocephalus is noted. Ventricles, sulci, and basal cisterns are symmetric and normal in size and configuration. The guerrero-white matter differentiation is preserved. Visualized paranasal sinuses and mastoid air cells are well aerated. Orbital contents are within normal limits. Bony structures are intact. Atherosclerotic calcifications are noted involving cavernous, clinoid and supraclinoid segment of bilateral internal carotid arteries without significant stenosis. Bilateral internal carotid arteries show normal course, calibre and opacification in the canalicular and cavernous part. Their division into the anterior cerebral artery and middle cerebral artery is defined. A1, A2 and M1, M2 segments are normal on both the sides. Bilateral vertebral arteries are seen to unite the form the basilar artery in a normal fashion. Basilar artery shows normal course, caliber and opacification. Its division into the posterior cerebral arteries is defined. Bilateral P1 and P2 segments are normal. Visualized venous structures show normal opacification. No evidence of intracranial aneurysm or AV malformation is seen. IMPRESSION: 1. Chronic microvascular ischemic changes.-stable. 2. Age related cerebral atrophy is seen.-stable. 3. Chronic infarct is noted in right ganglio-capsular region.-stable. 4. No obvious acute neuroparenchymal abnormality detected. MRI of the brain is suggested for better evaluation if clinically indicated. 5. No evidence of stenosis or aneurysm. No evidence of dissection. 6. Atherosclerotic calcifications are noted involving cavernous, clinoid and supraclinoid segment of bilateral internal carotid arteries causing 30%-40% luminal stenosis. However, distal perfusion is noted..-stable. 7. No other new interval abnormality since prior study. Electronically signed by David Das 09-08-2024 04:18 AM [facility] Narrative Prior records/ancillary studies reviewed. Triage Nursing notes reviewed. Additional history obtained from nursing The patient's history was concerning for nausea, vomiting, and generalized illness Differential diagnosis: Etiologies such as gastroenteritis, food borne illness, infections, appendicitis, diverticulitis, inflammatory bowel disease, obstruction, GI bleed, biliary pathology, as well as others were entertained. Physical examination findings: As above. Abdominal examination revealed stable. Vital signs reviewed and revealed stable. ER treatment provided: IV hydration 1 L NSS. Zofran and Pepcid were ordered Rocephin was ordered for possible UTI On reassessment the patient felt better. Patient was tolerating p.o. intake. Diagnostics interpretation by me: #1 EKG ordered for nausea EKG: Normal sinus, left ventricular hypertrophy, rate 85. Impression normal sinus rhythm with left ventricular hypertrophy similar to prior independently interpreted by myself EKG #2 ordered for elevated troponin EKG: Normal sinus, left ventricular hypertrophy, rate 77. Impression normal sinus rhythm with left ventricular hypertrophy similar to prior independently interpreted by myself The labs Independently Interpreted by myself revealed urine concerning for infection sent for culture. Hyperglycemia without DKA. VBG was reviewed. No DKA Elevated troponin and repeat was ordered and similar to prior Imaging studies: Imaging was reviewed and read by radiology Consultation: Medicine was consulted the case was discussed. Patient will be evaluated for possible admission. This appears to be consistent with nausea and vomiting possible UTI with dehydration and elevated troponin. Patient was medicated as above. She was treated for UTI. Culture was placed. Repeat EKG is unchanged. Repeat troponin was sent. Medicine was consulted case discussed. She will be evaluated for admission. By the evaluation outlined above emergent etiologies such as appendicitis, diverticulitis, obstruction, mesenteric ischemia, aortic pathology, inflammatory bowel disease, renal colic, PUD, biliary pathology, as well as others were deemed relatively unlikely. The pt informed about the findings as listed above. All questions were answered and pleased with the treatment. The chart was completed utilizing [employer] voice recognition software. Grammatical errors, random word insertions, pronoun errors, and incomplete sentences are an occassional consequence of this system due to software limitations, ambient noise, and hardware issues. Any formal questions or concerns about the content, text, or information contained within the body of this dictation should be directly addressed to the physician floor covering printer assistant for clarification. Impression & Plan Nausea & vomiting, Acute UTI, Dehydration, Elevated troponin Discharge Plan Visit Data Chief Complaint: Vomiting Stated Complaint: N/V,FEVER,HEADACHE ED Provider: Sophia Ramires ED Midlevel Provider: Kristin Robledo Discharge Problem: Nausea & vomiting, Acute UTI, Dehydration, Elevated troponin Patient Disposition: Being Evaluated by Hospitalist Condition: Good Discharge Instructions Interventions: ED Discharge Assessment Last Done: 09/08/24 04:55 Discharge Problem: Nausea & vomiting Qualifiers: Vomiting type: unspecified Qualified Code(s): R11.2 - Nausea with vomiting, unspecified
[2024-09-08] MEDS: ONDANSETRON INJ 2 MG/ML 2 ML VIAL IV STA (02:12)
[2024-09-08] MEDS: SODIUM CHLORIDE 0.9% 1,000 ML IV STA (02:13)
[2024-09-08] MEDS: FAMOTIDINE 20MG IV PUSH 20 MG/5 ML SYR IV STA (02:15)
[2024-09-08 02:32] LABS: Base Excess VBG 5.8 mEq/L; HCO3 VBG 31 mmol/L; Oxygen Saturation VBG < 60.0 %; PCO2 VBG 47 mmHg (38-50); PO2 VBG 24 mmHg; pH VBG 7.43 (7.36-7.41)
[2024-09-08 02:54] LABS: Hematocrit (blood only) 54.0 % (37.0-47.0); Hemoglobin 17.3 g/dl (12.0-16.0); Immature Granulocytes # (auto) 0.03 K/uL (0.01-0.20); Immature Granulocytes % (auto) 0.2 %; Mean Corpuscular Hemoglobin 25.6 pg (25.0-34.0); Mean Corpuscular Volume 79.9 fL (80.0-100.0); Platelet Count 340 K/uL (130-400); RDW Standard Deviation 42.2 fL (36.4-46.3); Red Blood Count 6.76 M/uL (4.20-5.40); White Blood Count 12.08 K/ul (4.8-10.8)
[2024-09-08 02:55] LABS: Alanine Aminotransferase 23.0 U/L (7-52); Albumin Globulin Ratio 0.9 (0.9-2); Alkaline Phosphatase 114.0 U/L (34-104); Anion Gap 9.0 (3-11); Bilirubin,Total 0.7 mg/dl (0.2-1.0); Blood Urea Nitrogen 18.0 mg/dl (6-23); Calcium 10.9 mg/dl (8.6-10.3); Carbon Dioxide 29.0 mmol/L (21-32); Chloride 103.0 mmol/L (98-107); Creatinine Clr Calc Pharmacy 79.6 ml/min; Globulin 4.8 gm/dl (2.5-4.0); Glucose 208.0 mg/dl (70-99(Fasting)); Lipase 32.0 U/L (11-82); Magnesium 2.0 mg/dl (1.7-2.4); Potassium 3.8 mmol/L (3.5-5.1); Sodium 141.0 mmol/L (136-145); Total Protein 9.3 gm/dl (6.0-8.3)
[2024-09-08] MEDS: SODIUM CHLORIDE 0.9% 1,000 ML IV ONE (03:11)
[2024-09-08 03:26] LABS: Chlamydia pneumoniae PCR Not Detected (NotDetected); Coronavirus 229E PCR Not Detected (NotDetected); Coronavirus CoV-2 (COVID19)PCR Not Detected (NotDetected); Coronavirus HKU1 PCR Not Detected (NotDetected); Coronavirus NL63 PCR Not Detected (NotDetected); Coronavirus OC43PCR Not Detected (NotDetected); Human Metapneumovirus PCR Not Detected (NotDetected); Parainfluenza Virus 1 PCR Not Detected (NotDetected); Parainfluenza Virus 2 PCR Not Detected (NotDetected); Parainfluenza Virus 3 PCR Not Detected (NotDetected); Parainfluenza Virus 4 PCR Not Detected (NotDetected); Respiratory Syncytial VirusPCR Not Detected (NotDetected); Rhinovirus/Enterovirus PCR Not Detected (NotDetected)
[2024-09-08] MEDS: ACETAMINOPHEN 1,000 MG/100 ML VIAL IV STA (03:27)
[2024-09-08 03:38] LABS: Appearance Urine Cloudy (Clear); Bacteria Urine Automated 4+ (None Seen); Glucose Urine UA Trace (Negative); WBC Urine Automated >50 /hpf (0-5)
[2024-09-08] MEDS: OPTIRAY 320 125ml IV ONE (03:50)
[2024-09-08] MEDS: cefTRIAXone SODIUM 2,000 MG/50 ML BAG IV STA (04:00)
--- NOTE | 2024-09-08 04:19 | CT Scan Report ---
EXAM: CT angio head wo/w CLINICAL HISTORY: VALLADARES TECHNIQUE: Contrast enhanced thin slice CT angiography scan of the cerebral vessels was performed with and without intravenous contrast. Angiographic images were processed, 3D MIP images were acquired for interpretation. Contiguous axial images were obtained. Reformatted coronal and sagittal images were also reviewed. If IV contrast material had not been administered, the likelihood of detecting abnormalities relevant to the patients condition would have been substantially decreased. CT scan was performed according to ALARA (as low as reasonable achievable). COMPARISON: Sep 19:49:54 TEST ARCHITECT. FINDINGS: Chronic microvascular ischemic changes are noted. Age related cerebral atrophy is seen. Chronic infarct is noted in right ganglio-capsular region. No obvious acute neuroparenchymal abnormality detected. No evidence of space occupying lesion, hemorrhage, edema, mass effect, midline shift, extra axial collection, or hydrocephalus is noted. Ventricles, sulci, and basal cisterns are symmetric and normal in size and configuration. The guerrero-white matter differentiation is preserved. Visualized paranasal sinuses and mastoid air cells are well aerated. Orbital contents are within normal limits. Bony structures are intact. Atherosclerotic calcifications are noted involving cavernous, clinoid and supraclinoid segment of bilateral internal carotid arteries without significant stenosis. Bilateral internal carotid arteries show normal course, calibre and opacification in the canalicular and cavernous part. Their division into the anterior cerebral artery and middle cerebral artery is defined. A1, A2 and M1, M2 segments are normal on both the sides. Bilateral vertebral arteries are seen to unite the form the basilar artery in a normal fashion. Basilar artery shows normal course, caliber and opacification. Its division into the posterior cerebral arteries is defined. Bilateral P1 and P2 segments are normal. Visualized venous structures show normal opacification. No evidence of intracranial aneurysm or AV malformation is seen. IMPRESSION: 1. Chronic microvascular ischemic changes.-stable. 2. Age related cerebral atrophy is seen.-stable. 3. Chronic infarct is noted in right ganglio-capsular region.-stable. 4. No obvious acute neuroparenchymal abnormality detected. MRI of the brain is suggested for better evaluation if clinically indicated. 5. No evidence of stenosis or aneurysm. No evidence of dissection. 6. Atherosclerotic calcifications are noted involving cavernous, clinoid and supraclinoid segment of bilateral internal carotid arteries causing 30%-40% luminal stenosis. However, distal perfusion is noted..-stable. 7. No other new interval abnormality since prior study. Electronically signed by David Das 09-08-2024 04:18 AM
[2024-09-08 04:22] VITALS: BP 164/72
--- NOTE | 2024-09-08 04:30 | History & Physical Report ---
Date of Service September 08, 2024 Assessment & Plan (1) Nausea & vomiting: (2) Asymptomatic bacteriuria: (3) Elevated troponin: (4) Type 2 diabetes mellitus: Plan 54-year-old female PMHx T2DM, HTN, HLD, CVA (2021), cardiomyopathy, depression, and hyperparathyroidism presenting for nausea and vomiting x 2 days RADIOLOGIC TECHNOLOGIST MAMMOGRAM. ED evaluation reveals leukocytosis 12.08, H&H 17.3/54; VBG's with pH 7.43; CMP glucose 208, calcium 10.9; alkaline phosphatase 114, protein 9.2, globulin 4.8; initial troponin 57.2, pending repeat; UA does appear infected; head CTA chronic microvascular ischemic changes and age-related atrophy that is stable, chronic infarct in right gangliocapsular region, no acute abnormality detected, no evidence of stenosis or aneurysm, atherosclerotic changes noted; EKG initially normal sinus rhythm with LVH and repolarization abnormality 85 bpm, on repeat normal sinus rhythm with LVH at 77 bpm.; Provided with 2L NSS, Zofran 4 mg IV, famotidine 20 mg IV, ceftriaxone 2 g IV, and acetaminophen 1 g IV in ED. #Intractable nausea and vomiting/Asymptomatic Bacteriuria Ongoing N/V with any oral intake x 2 days RADIOLOGIC TECHNOLOGIST MAMMOGRAM, associated feeling feverish and lightheaded. Did have onset of chest pain and headache day of arrival. Now resolved. Unable to tolerate oral liquids, but did tolerate some fluids while in ED with trial. Does not feel as though she can go home at this time. - CBC does reveal leukocytosis 12.08, H&H 17.3/54; VBG's pH 7.43; CMP alkaline phosphatase 114 - hemoconcentrated,; CBC, BMP a.m. - Troponin 57.2, pending repeat - UA suspicious for infection, however patient without LUTS - EKG NSR x 2, no ischemic changes x 2 - Head CT without acute findings - Clear liquid diet, advance as pt tolerates - Zofran prn N/V - Acetaminophen prn pain/fever - IVF LR @ 125 mL/hr x 1L - Deferred further abx given no LUTS, was covered with 1 dose ceftriaxone in ED -- adjust abx regimen as appropriate #Elevated troponin Pt w/ h/o "cardiac condition" s/p COVID (cardiomyopathy); no current chest pain. Amlodipine, carvedilol, furosemide (prn). - Troponin 57.2, pending repeat - EKG NSR x 2, without ischemic changes - Likely 2/2 demand ischemia #T2DM H/o DMT2; At home regimen Lantus 68 units in the morning, Humalog 15 units with meals, semaglutide weekly. - Most recent A1C 04/2024 @ 8.0% - Hold semaglutide - SSI with target BSG range 110-140mg/dL, CF 15, carb ratio 5 - Lantus 30U BID - BSG ACHS if eating, q6h if npo - Pharm glycemic management consult placed given high outpatinet insulin use, appreciate assistance - Adjust regimen as needed #HTN- Amlodipine, carvedilol - PT IS UNSURE IF SHE IS TAKING AMLODIPINE SO THIS WAS HELD AT ADMISSION, and carvedilol no longer covered by insurance SO CARVEDILOL HELD AT ADMISSION #H/o CVA- ASA, Plavix - continue ASA, pt states plavix no longer covered by insurance SO PLAVIX HELD AT ADMISSION #HLD- Ezetimibe - PT IS UNSURE IF SHE IS TAKING EZETIMIBER SO THIS WAS HELD AT ADMISSION #Pulm- Albuterol neb/inhaler prn - continue Pt would benefit from clear medication reconciliation as she is unsure of a lot of her medications. Dispo: Obs, med/tele VTE Prophylaxis: SCDs This document was dictated utilizing [employer]. Please excuse any grammatical errors that may be secondary to use of this software. Admission and Anticipated Discharge Date Admission Date: 09/08/2024 History of Present Illness Chief Complaint: N/V Primary Care Provider: Alem Cantu DO 54-year-old female PMHx T2DM, HTN, HLD, CVA (2021), cardiomyopathy, depression, and hyperparathyroidism presenting for nausea and vomiting x 2 days RADIOLOGIC TECHNOLOGIST MAMMOGRAM. Associated chest pain and headache. Patient states that approximately 2 days RADIOLOGIC TECHNOLOGIST MAMMOGRAM she started to feel sick to the stomach. She remembers her going to bed 1 evening and then the next morning woke up and felt very feverish. She had multiple episodes of emesis and was unable to keep any liquids down. She states she is not having any abdominal pain but every time she tries to eat she will throw up approximately 3-4 times after this. She has been unable to even tolerate liquids. She did try to drink water today and attempts to hydrate herself but still threw this up afterwards. She did have a headache spreading across the front of her forehead, currently rating it a 0-10 on the pain scale after having received Tylenol. She did feel lightheaded on the day of arrival secondary to being unable to tolerate any intake, but no falls. She had no LOC. She had an onset of L sided chest pain, she states that this is not abnormal for her and she has had a "heart condition" since after COVID. She is unable to timings up with her condition is. She also had a prior stroke. She is not having any current chest pain, no palpitations, no SOB. Denies again, abdominal pain, diarrhea/constipation, numbness/tingling, chills, URI symptoms, LUTS, or sick contacts. She states that she did often get urinary infections as a child, but she again denies any LUTS at time of admission. ED evaluation reveals leukocytosis 12.08, H&H 17.3/54; VBG's with pH 7.43; CMP glucose 208, calcium 10.9; alkaline phosphatase 114, protein 9.2, globulin 4.8; initial troponin 57.2, pending repeat; UA does appear infected; head CTA chronic microvascular ischemic changes and age-related atrophy that is stable, chronic infarct in right gangliocapsular region, no acute abnormality detected, no evidence of stenosis or aneurysm, atherosclerotic changes noted; EKG initially normal sinus rhythm with LVH and repolarization abnormality 85 bpm, on repeat normal sinus rhythm with LVH at 77 bpm.; Provided with 2L NSS, Zofran 4 mg IV, famotidine 20 mg IV, ceftriaxone 2 g IV, and acetaminophen 1 g IV in ED. Please see Dr. Olivo's attestation for adjustments/additions to treatment plan. Allergies Allergy/AdvReac Type Severity Reaction Status Date / Time avocado Allergy Severe SWELLING Verified 09/08/24 02:14 OF THROAT,ITCHING banana Allergy Severe THROAT Verified 09/08/24 02:14 SWELLING,ITCHING pollen extracts Allergy Intermediate ITCHY Verified 09/08/24 02:14 EYES, SNEEZING, CONGESTION latex AdvReac Intermediate RASH,ITCHIN Verified 09/08/24 02:14 G Ghyjncv-YRK-DhR Reductase AdvReac Intermediate could not Verified 09/08/24 02:14 Inhibitor stay awake [Lzykjhr-Ujd-Uld Reductase Inhibitor] Home Medications Medication Instructions Recorded Confirmed Type blood sugar diagnostic #300 ea 04/26/21 10/08/23 Rx albuterol sulfate 2.5 mg/3 mL 2.5 mg (3 mL) inhalation Q4H PRN 05/09/21 09/08/24 Rx (0.083 %) solution for nebulization shortness of breath or wheezing #1,080 mL furosemide 40 mg tablet 40 mg PO DAILY PRN weight gain #30 04/24/22 09/08/24 Rx tabs blood sugar diagnostic (OneTouch #100 ea 09/20/22 10/08/23 Rx Ultra Test strips) aspirin 81 mg tablet,delayed 81 mg PO DAILY #90 tabs 06/28/23 09/08/24 Rx release (Adult Aspirin Regimen) semaglutide 0.25 mg or 0.5 mg (2 0.5 mg (0.736 mL) subcut Q7D #3 mL 09/21/23 09/08/24 Rx mg/3 mL) subcutaneous pen injector (MegaBits) albuterol sulfate 90 mcg/actuation 2 puff inhalation Q4 PRN Shortness 10/08/23 09/08/24 Rx aerosol inhaler Of Breath Or Wheezing #18 grams ondansetron HCl 4 mg tablet 4 mg PO DAILY #30 tabs 10/11/23 09/08/24 Rx clopidogrel 75 mg tablet (Plavix) 75 mg PO DAILY #90 tabs 11/29/23 09/08/24 Rx blood-glucose sensor (Dexcom G7 #12 ea 01/07/24 Rx Sensor device) amlodipine 5 mg tablet 5 mg PO HS #90 tabs 02/11/24 09/08/24 Rx pen needle, diabetic 32 gauge x #200 ea 03/24/24 Rx 5/32" (BD Camryn 2nd Gen Pen Needle) ezetimibe 10 mg tablet 10 mg PO DAILY #90 tabs 03/31/24 09/08/24 Rx carvedilol 6.25 mg tablet 6.25 mg PO BID 09/08/24 09/08/24 History cholecalciferol (vitamin D3) 50 50 mcg PO DAILY 09/08/24 09/08/24 History mcg (2,000 unit) capsule (Vitamin D3) epinephrine 0.3 mg/0.3 mL 0.3 mg IM DIRECTED PRN 09/08/24 09/08/24 History injection, auto-injector (EpiPen anaphylaxis 2-Jer) hydrocortisone 2.5 % topical cream 1 applic topical BID PRN Skin 09/08/24 09/08/24 History Irritation insulin glargine 100 unit/mL (3 68 unit subcut QAM 09/08/24 09/08/24 History mL) subcutaneous pen (Lantus Solostar U-100 Insulin) insulin lispro 100 unit/mL 15 unit subcut TIDM 09/08/24 09/08/24 History subcutaneous pen (Humalog KwikPen (U-100) Insulin) Past Med/Surg History Problem List (Updated 09/08/24 @ 04:51 by Eveline Robledo PA-C) Asymptomatic bacteriuria Dehydration (Acute) Nausea & vomiting (Acute) Acute UTI (Acute) Lumbar facet joint syndrome Chronic low back pain Spondylolisthesis of lumbosacral region Vitamin D deficiency Cardiomyopathy Hyperlipidemia Microalbuminuria Obesity Hyperparathyroidism H/O hyperparathyroidism Wrist tendonitis Rupture of right proximal biceps tendon Hypercalcemia History of CVA (cerebrovascular accident) (~09/2021) Psoriasis Eczema PTSD (post-traumatic stress disorder) Hypertension Dyslipidemia Depression Anxiety Asthma Pulmonary nodule Type 2 diabetes mellitus Asthma Ovarian cyst Medical History COVID-19 Uncontrolled type 2 diabetes mellitus Cellulitis and abscess of face (~12/2019) Surgical History Hx of salpingo-oophorectomy, bilateral S/P endometrial ablation S/P tubal ligation S/P tonsillectomy and adenoidectomy S/P rotator cuff repair R shoulder Hx of hysterectomy H/O section S/P carpal tunnel release R hand Dec 2016, L hand Feb 2017 Family History Father Hypertension Prostate cancer Mother Diabetes Gallbladder disease Dementia Sister Anxiety Depression Drug abuse Brother Depression Drug abuse Grandmother (Maternal) Dementia Social History Smoking Status: Current every day smoker Tobacco Type: Cigarettes Age Started Using Tobacco: 28; packs per day: 1; Second Hand Exposure: Yes; Do You Dip or Chew Tobacco: No; Hx Alcohol Use: No Hx Substance Use: No Preferred Language: Urdu Communication Ability: Effective Visual Impairment: No Limitations Hearing Ability: Normal Athletic Trainer Required: No Beliefs That Will Affect Care: None marital status: Single Current Living Situation: Family Current Living Situation Comment: Adult Son (special needs) current occupational status: employed current occupation: medicare insurance specialist Feels Safe at Home: Yes Diet: regular Diet Comment: regular caffeine: Yes during the past year weight has: remained stable Dental Care, Regularly: No Physical Activity Frequency: Daily Seatbelt Use: always Sunscreen Use: Yes Review of Systems Review of Systems: All systems reviewed & are unremarkable except as noted in Subjective Physical Exam Physical Exam: General: No acute distress Skin: Warm and dry Head: Normocephalic, atraumatic Eyes: PERRL, conjunctivae clear, sclera non-icteric ENT: External ear and ear canal without swelling; nose atraumatic; good dentition, tongue normal appearance, pharynx normal Neck: Supple, no LAD Cardio: RRR, no M/G/R, S1 and S2 normal Resp: No respiratory distress, Lungs CTA in all lobes bilaterally, no wheezes, rales, or rhonchi Abdomen: Soft, symmetric, nontender; No masses or hepatosplenomegaly; Bowel sounds normoactive MSK: No deformities; pulses palpable and equal; no edema. Neuro: Awake, alert; Sensation intact bilaterally; CN grossly intact Psych: Appropriate mood and affect; good judgement and insight. Results & Data Results & Data Vital Signs (Past 12 Hours) Vital Signs Temp Pulse Resp BP Pulse Ox O2 Del Method 09/08/24 03:53 81 20 164/72 H 97 09/08/24 03:00 91 H 16 162/85 H 94 09/08/24 02:31 86 16 103/79 99 09/08/24 02:17 88 09/08/24 01:58 36.6 C 108 H 18 100/68 98 Room Air Laboratory Results 09/08/24 03:12 Urine Culture - Pending Urine,Clean Catch 09/08/24 09/08/24 09/08/24 03:12 02:07 02:06 WBC 12.08 H RBC 6.76 H Hgb 17.3 H Hct 54.0 H MCV 79.9 L MCH 25.6 MCHC 32.0 RDW Std Deviation 42.2 RDW Coeff of Tre 16.3 H Plt Count 340 MPV 9.8 Immature Gran % (Auto) 0.2 Neut % (Auto) 72.7 Lymph % (Auto) 19.3 [place] % (Auto) 6.0 Eos % (Auto) 0.9 Baso % (Auto) 0.9 Neut # (Auto) 8.78 H Lymph # (Auto) 2.33 [place] # (Auto) 0.72 H Eos # (Auto) 0.11 Baso # (Auto) 0.11 Immature Gran # (Auto) 0.03 VBG pH 7.43 H VBG pCO2 47 VBG pO2 24 VBG HCO3 31 VBG O2 Saturation < 60.0 VBG Base Excess 5.8 Sodium Potassium Chloride Carbon Dioxide Anion Gap BUN Creatinine Est Cr Clr Drug Dosing eGFR BUN/Creatinine Ratio Glucose Calcium Magnesium Total Bilirubin AST ALT Alkaline Phosphatase Troponin I High Sens Total Protein Albumin Globulin Albumin/Globulin Ratio Lipase Urine Color Yellow Urine Appearance Cloudy A Urine pH 6.5 Ur Specific Pep 1.024 Urine Protein 3+ H Urine Glucose (UA) Trace H Urine Ketones 1+ H Urine Blood Trace H Urine Nitrite Positive A Urine Bilirubin Negative Urine Urobilinogen Negative Ur Leukocyte Esterase 2+ H Urine WBC (Auto) >50 H Urine RBC (Auto) 3-5 H U Hyaline Cast (Auto) 6-10 H U Epithel Cells (Auto) 3-5 H Urine Bacteria (Auto) 4+ H Hyaline Casts Present A Urine Comment Adenovirus (PCR) Not Detected B. pertussis DNA (PCR) Not Detected B.parapertussis DNA PCR Not Detected C. pneumoniae DNA (PCR) Not Detected Coronavirus OC43 (PCR) Not Detected Coronavirus HKU1 (PCR) Not Detected Coronavirus 229E (PCR) Not Detected SARS-CoV-2 (PCR) Not Detected Coronavirus NL63 (PCR) Not Detected Human Metapneumovir PCR Not Detected Influenza Type A (PCR) Not Detected Influenza Type B (PCR) Not Detected M. pneumoniae (PCR) Not Detected Parainfluenza 1 (PCR) Not Detected Parainfluenza 2 (PCR) Not Detected Parainfluenza 3 (PCR) Not Detected Parainfluenza 4 (PCR) Not Detected RSV (PCR) Not Detected Entero/Rhino (PCR) Not Detected 09/08/24 02:05 WBC RBC Hgb Hct MCV MCH MCHC RDW Std Deviation RDW Coeff of Tre Plt Count MPV Immature Gran % (Auto) Neut % (Auto) Lymph % (Auto) [place] % (Auto) Eos % (Auto) Baso % (Auto) Neut # (Auto) Lymph # (Auto) [place] # (Auto) Eos # (Auto) Baso # (Auto) Immature Gran # (Auto) VBG pH VBG pCO2 VBG pO2 VBG HCO3 VBG O2 Saturation VBG Base Excess Sodium 141 Potassium 3.8 Chloride 103 Carbon Dioxide 29 Anion Gap 9 BUN 18 Creatinine 0.97 Est Cr Clr Drug Dosing 79.6 eGFR 68.58 BUN/Creatinine Ratio 18.6 Glucose 208 H Calcium 10.9 H Magnesium 2.0 Total Bilirubin 0.7 AST 25 ALT 23 Alkaline Phosphatase 114 H Troponin I High Sens 57.2 H* Total Protein 9.3 H Albumin 4.5 Globulin 4.8 H Albumin/Globulin Ratio 0.9 Lipase 32 Urine Color Urine Appearance Urine pH Ur Specific Pep Urine Protein Urine Glucose (UA) Urine Ketones Urine Blood Urine Nitrite Urine Bilirubin Urine Urobilinogen Ur Leukocyte Esterase Urine WBC (Auto) Urine RBC (Auto) U Hyaline Cast (Auto) U Epithel Cells (Auto) Urine Bacteria (Auto) Hyaline Casts Urine Comment Adenovirus (PCR) B. pertussis DNA (PCR) B.parapertussis DNA PCR C. pneumoniae DNA (PCR) Coronavirus OC43 (PCR) Coronavirus HKU1 (PCR) Coronavirus 229E (PCR) SARS-CoV-2 (PCR) Coronavirus NL63 (PCR) Human Metapneumovir PCR Influenza Type A (PCR) Influenza Type B (PCR) M. pneumoniae (PCR) Parainfluenza 1 (PCR) Parainfluenza 2 (PCR) Parainfluenza 3 (PCR) Parainfluenza 4 (PCR) RSV (PCR) Entero/Rhino (PCR) Diagnostic Findings Head CTA 09/08/24 03:18 EXAM: CT angio head wo/w CLINICAL HISTORY: VALLADARES TECHNIQUE: Contrast enhanced thin slice CT angiography scan of the cerebral vessels was performed with and without intravenous contrast. Angiographic images were processed, 3D MIP images were acquired for interpretation. Contiguous axial images were obtained. Reformatted coronal and sagittal images were also reviewed. If IV contrast material had not been administered, the likelihood of detecting abnormalities relevant to the patients condition would have been substantially decreased. CT scan was performed according to ALARA (as low as reasonable achievable). COMPARISON: Sep 19:49:54 PEDIATRIC PHYSICIAN. FINDINGS: Chronic microvascular ischemic changes are noted. Age related cerebral atrophy is seen. Chronic infarct is noted in right ganglio-capsular region. No obvious acute neuroparenchymal abnormality detected. No evidence of space occupying lesion, hemorrhage, edema, mass effect, midline shift, extra axial collection, or hydrocephalus is noted. Ventricles, sulci, and basal cisterns are symmetric and normal in size and configuration. The guerrero-white matter differentiation is preserved. Visualized paranasal sinuses and mastoid air cells are well aerated. Orbital contents are within normal limits. Bony structures are intact. Atherosclerotic calcifications are noted involving cavernous, clinoid and supraclinoid segment of bilateral internal carotid arteries without significant stenosis. Bilateral internal carotid arteries show normal course, calibre and opacification in the canalicular and cavernous part. Their division into the anterior cerebral artery and middle cerebral artery is defined. A1, A2 and M1, M2 segments are normal on both the sides. Bilateral vertebral arteries are seen to unite the form the basilar artery in a normal fashion. Basilar artery shows normal course, caliber and opacification. Its division into the posterior cerebral arteries is defined. Bilateral P1 and P2 segments are normal. Visualized venous structures show normal opacification. No evidence of intracranial aneurysm or AV malformation is seen. IMPRESSION: 1. Chronic microvascular ischemic changes.-stable. 2. Age related cerebral atrophy is seen.-stable. 3. Chronic infarct is noted in right ganglio-capsular region.-stable. 4. No obvious acute neuroparenchymal abnormality detected. MRI of the brain is suggested for better evaluation if clinically indicated. 5. No evidence of stenosis or aneurysm. No evidence of dissection. 6. Atherosclerotic calcifications are noted involving cavernous, clinoid and supraclinoid segment of bilateral internal carotid arteries causing 30%-40% luminal stenosis. However, distal perfusion is noted..-stable. 7. No other new interval abnormality since prior study. Electronically signed by David Das 09-08-2024 04:18 AM Medications Administered 2L NSS Zofran 4 mg IV Famotidine 20 mg IV Ceftriaxone 2 g IV Acetaminophen 1 g IV ECG Additional Comments: EKG #1: NSR, LVH with repolarization abnormality 85 bpm, [place] 182, QRS 78, QT/QTc 380/452, PRT 60/5/116 EKG #2: NSR, LVH 77 bpm, [place] 190, QRS 78, QT/QTc 404/457, PRT 63/-5/115 Code Status & VTE Plan Code Status Full VTE Prophylaxis Plan VTE Prophylaxis will be ordered: Yes PG Care Time/CCT Total # of Minutes Spent Total Time Spent with Patient: Total time spent is greater than 50% in coordination of care (as documented) at patient's floor/unit and/or counseling patient: Coding Level of Care Code 01170 INT INP/OBS CARE 3/75MIN Diagnoses Nausea & vomiting R11.2 Asymptomatic bacteriuria R82.71 Elevated troponin R77.8 Type 2 diabetes mellitus with diabetic microalbuminuria, without long-term current use of insulin E11.29; R80.9 Diabetes mellitus complication detail: with diabetic microalbuminuria Diabetes mellitus complication status: with kidney complications Diabetes mellitus usp insulin use: without usp use (4) Type 2 diabetes mellitus Diabetes mellitus complication detail: with diabetic microalbuminuria Diabetes mellitus complication status: with kidney complications Diabetes mellitus usp insulin use: without usp use Qualified Code(s): E11.29 - Type 2 diabetes mellitus with other diabetic kidney complication; R80.9 - Proteinuria, unspecified
[2024-09-08] MEDS ORDERED: POLYETHYLENE (MIRALAX) 17 GM PACK PO PRN (04:55)
[2024-09-08] MEDS ORDERED: MAGNESIUM HYDROXIDE SUSP 30 ML UDC PO PRN (04:55)
[2024-09-08] MEDS ORDERED: ALBUTEROL 0.083% NEBU SOLN 3 ML VIAL INH PRN (04:55)
[2024-09-08] MEDS ORDERED: ALBUTEROL HFA 8 GM INHALER INH PRN (04:55)
[2024-09-08] MEDS ORDERED: ACETAMINOPHEN 325 MG TAB PO PRN (04:55)
[2024-09-08] MEDS ORDERED: GLUCAGON FOR INJ 1 MG VIAL SQ PRN (04:55)
[2024-09-08] MEDS ORDERED: HYDROCORTISONE 2.5% CR 30 GM TUBE EXT PRN (04:55)
[2024-09-08] MEDS ORDERED: GLUCOSE 40% GEL 15 GM TUBE PO PRN (04:55)
[2024-09-08] MEDS ORDERED: GLUCOSE 10 TAB/TUBE PO PRN (04:55)
[2024-09-08] MEDS ORDERED: CARBOHYDRATES FOR HYPOGLYCEMIA PO PRN (04:55)
[2024-09-08] MEDS ORDERED: DEXTROSE 50% 50 ML SYRINGE IV PRN (04:55)
[2024-09-08] MEDS ORDERED: MELATONIN 3 MG TAB PO PRN (04:55)
[2024-09-08] MEDS ORDERED: PHARMACY GLYCEMIC MGMT CONSULT PRN (04:55)
[2024-09-08 05:06] VITALS: O2SAT 94
[2024-09-08 05:30] VITALS: RESP 18
[2024-09-08] MEDS: LACTATED RINGER'S 1,000 ML IV SCH (06:40)
[2024-09-08 07:02] VITALS: PULSE 72
[2024-09-08] MEDS: INSULIN ASPART PER UNIT CHARGE SC SCH (07:53)
[2024-09-08] MEDS: ONDANSETRON INJ 2 MG/ML 2 ML VIAL IV PRN (08:01)
[2024-09-08] MEDS: LANTUS PER UNIT CHARGE SQ SCH (08:12)
[2024-09-08] MEDS: ASPIRIN 81 MG ECTAB PO SCH (08:12)
[2024-09-08 08:43] LABS: Hematocrit (blood only) 43.0 % (37.0-47.0); Hemoglobin 13.9 g/dl (12.0-16.0); Mean Corpuscular Hemoglobin 26.0 pg (25.0-34.0); Mean Corpuscular Volume 80.4 fL (80.0-100.0); Platelet Count 285 K/uL (130-400); RDW Standard Deviation 42.5 fL (36.4-46.3); Red Blood Count 5.35 M/uL (4.20-5.40); White Blood Count 10.63 K/ul (4.8-10.8)
[2024-09-08 08:52] LABS: Anion Gap 5.0 (3-11); Blood Urea Nitrogen 15.0 mg/dl (6-23); Calcium 9.2 mg/dl (8.6-10.3); Carbon Dioxide 28.0 mmol/L (21-32); Chloride 107.0 mmol/L (98-107); Creatinine Clr Calc Pharmacy 99.0 ml/min; Glucose 165.0 mg/dl (70-99(Fasting)); Potassium 3.8 mmol/L (3.5-5.1); Sodium 140.0 mmol/L (136-145)
--- NOTE | 2024-09-08 09:00 | Discharge Summary ---
Discharge Summary Date of Service September 08, 2024 Principal Dx & Hospital Course #1 = Principal Diagnosis (1) Nausea & vomiting: (2) Elevated troponin: (3) Acute UTI: (4) Type 2 diabetes mellitus: Plan 54-year-old female PMHx T2DM, HTN, HLD, CVA (2021), cardiomyopathy, depression, and hyperparathyroidism presenting for nausea and vomiting x 2 days [employer]. ED workup significant for UA suggestive of infection, though patient denies any urinary symptoms. About 4.5 hours after admission to the hospital, patient demanded to leave AMA. I personally discussed the risks of leaving AMA with her given her workup is not completed and she continues to have persistent nausea with vomiting - received Zofran about 1 hour prior to leaving AMA due to N/V. Patient states "I cannot sleep here. I need a cigarette. I still feel sick and I'm not getting better here." Attempted to deescalate the situation and educate patient about importance of remaining inpatient; she continued to refuse. I voiced my concern about her not absorbing oral antibiotics for treatment of a UTI if she continues to vomit at home. She verbalized understanding of risks of leaving AMA. She reported "I'm leaving this place. I'm going out to smoke a cigarette. I understand I can and I still want to leave." ED evaluation on presentation revealed leukocytosis 12.08, H&H 17.3/54; VBG's with pH 7.43; CMP glucose 208, calcium 10.9; alkaline phosphatase 114, protein 9.2, globulin 4.8; initial troponin 57.2 repeat down trended; UA does appear infected; head CTA chronic microvascular ischemic changes and age-related atrophy that is stable, chronic infarct in right gangliocapsular region, no acute abnormality detected, no evidence of stenosis or aneurysm, atherosclerotic changes noted; EKG initially normal sinus rhythm with LVH and repolarization abnormality 85 bpm, on repeat normal sinus rhythm with LVH at 77 bpm. Provided with 2L NSS, Zofran 4 mg IV, famotidine 20 mg IV, ceftriaxone 2 g IV, and acetaminophen 1 g IV in ED. #Intractable nausea and vomiting/Acute UTI vs. Asymptomatic Bacteriuria - Ongoing N/V with any oral intake x 2 days [employer], associated feeling feverish and lightheaded. Did have onset of chest pain and headache day of arrival. Now resolved. Unable to tolerate oral liquids, but did tolerate some fluids while in ED with trial. Does not feel as though she can go home at time of admission, but then demanded to leave AMA. - Initial CBC consistent with hemoconcentration, improved following IV fluids - Head CT without acute findings - UA suspicious for infection, however patient without LUTS. Urine culture pending - Given 1 dose of Ceftriaxone IV in ED - Prescribed Cipro 250 mg Q12h x 3 days on AMA discharge - Patient still unable to tolerate any significant oral intake prior to leaving AMA #Elevated troponin - Pt w/ h/o "cardiac condition" s/p COVID (cardiomyopathy); no current chest pain - Troponin 57.2, repeat down trended to 52.2 - suspect demand ischemia in setting of persistent vomiting. EKG NSR x 2, no ischemic changes x 2 #T2DM - H/o DMT2; At home regimen Lantus 68 units in the morning, Humalog 15 units with meals, semaglutide weekly. - Most recent A1C 04/2024 @ 8.0% - Basal/bolus insulin while inpatient - Resumed home regimen on discharge #HTN- Amlodipine, carvedilol - PT IS UNSURE IF SHE IS TAKING AMLODIPINE SO THIS WAS HELD AT ADMISSION/DISCHARGE, and carvedilol no longer covered by insurance SO CARVEDILOL HELD AT ADMISSION/DISCHARGE #H/o CVA- ASA, Plavix - continue ASA, pt states Plavix no longer covered by insurance SO PLAVIX HELD AT ADMISSION/DISCHARGE #HLD- Ezetimibe - PT IS UNSURE IF SHE IS TAKING EZETIMIBER SO THIS WAS HELD AT ADMISSION/DISCHARGE #Pulm- Albuterol neb/inhaler prn - continue Pt would benefit from clear medication reconciliation as she is unsure of a lot of her medications. Dispo: Left AGAINST MEDICAL ADVICE morning of 09/08 VTE Prophylaxis: SCDs Notes For Next Care Provider Bridget left AGAINST MEDICAL ADVICE about 4.5 hours after admission to the hospital. Unclear source of persistent nausea with vomiting, possibly due to acute UTI though asymptomatic, prescribed course of ciprofloxacin on discharge to cover for UTI. Recommend clear medication reconciliation as Bridget is unsure about a lot of her home medications. Medication Changes From Visit Ciprofloxacin 250 mg Q12h x 3 days Amlodipine, carvedilol Plavix, ezetimibe, Ozempic all held as patient is unsure if she is taking these medications/states they are no longer covered by insurance Admission HPI Per Admitting Provider 54-year-old female PMHx T2DM, HTN, HLD, CVA (2021), cardiomyopathy, depression, and hyperparathyroidism presenting for nausea and vomiting x 2 days [employer]. Associated chest pain and headache. Patient states that approximately 2 days [employer] she started to feel sick to the stomach. She remembers her going to bed 1 evening and then the next morning woke up and felt very feverish. She had multiple episodes of emesis and was unable to keep any liquids down. She states she is not having any abdominal pain but every time she tries to eat she will throw up approximately 3-4 times after this. She has been unable to even tolerate liquids. She did try to drink water today and attempts to hydrate herself but still threw this up afterwards. She did have a headache spreading across the front of her forehead, currently rating it a 0-10 on the pain scale after having received Tylenol. She did feel lightheaded on the day of arrival secondary to being unable to tolerate any intake, but no falls. She had no LOC. She had an onset of L sided chest pain, she states that this is not abnormal for her and she has had a "heart condition" since after COVID. She is unable to timings up with her condition is. She also had a prior stroke. She is not having any current chest pain, no palpitations, no SOB. Denies again, abdominal pain, diarrhea/constipation, numbness/tingling, chills, URI symptoms, LUTS, or sick contacts. She states that she did often get urinary infections as a child, but she again denies any LUTS at time of admission. ED evaluation reveals leukocytosis 12.08, H&H 17.3/54; VBG's with pH 7.43; CMP glucose 208, calcium 10.9; alkaline phosphatase 114, protein 9.2, globulin 4.8; initial troponin 57.2, pending repeat; UA does appear infected; head CTA chronic microvascular ischemic changes and age-related atrophy that is stable, chronic infarct in right gangliocapsular region, no acute abnormality detected, no evidence of stenosis or aneurysm, atherosclerotic changes noted; EKG initially normal sinus rhythm with LVH and repolarization abnormality 85 bpm, on repeat normal sinus rhythm with LVH at 77 bpm.; Provided with 2L NSS, Zofran 4 mg IV, famotidine 20 mg IV, ceftriaxone 2 g IV, and acetaminophen 1 g IV in ED. Please see Dr. Olivo's attestation for adjustments/additions to treatment plan. Admission Exam Per Admitting Provider General: No acute distress Skin: Warm and dry Head: Normocephalic, atraumatic Eyes: PERRL, conjunctivae clear, sclera non-icteric ENT: External ear and ear canal without swelling; nose atraumatic; good dentition, tongue normal appearance, pharynx normal Neck: Supple, no LAD Cardio: RRR, no M/G/R, S1 and S2 normal Resp: No respiratory distress, Lungs CTA in all lobes bilaterally, no wheezes, rales, or rhonchi Abdomen: Soft, symmetric, nontender; No masses or hepatosplenomegaly; Bowel sounds normoactive MSK: No deformities; pulses palpable and equal; no edema. Neuro: Awake, alert; Sensation intact bilaterally; CN grossly intact Psych: Appropriate mood and affect; good judgement and insight. Discharge Exam General: Agitated and irritated in ED bed. No acute distress. Well-developed, well-nourished. Refused physical exam. Cardiac: Well-perfused. Rate in 70s. Pulm: Normal respiratory effort. 94% on room air. Neuro: A&O x3. No focal neurological deficits. Discharge Plan Discharge Items Patient Disposition: Against Medical Advice Reason For Visit: N/V, ELEVATED TROP Discharge Diagnosis: Persistent nausea with vomiting Condition on Discharge: Good Activity: Resume your previous activity Non-emergency contact: Primary Care Provider Call non-emergency contact if: you have any medication questions, your symptoms worsen and you have a fever Follow-up/Referrals: Alem Cantu DO [Primary Care Provider] - (Follow-up within 1 week) Diet: Carb Consistent or DM2 Addtl Attending Provider Instructions: Bridget, You have chosen to leave against medical advice. You have been counselled extensively by myself about the risks associated with leaving against medical a dvice, including: Worsening of your problems, needing to be readmitted to the hospital again for the same condition, and that your condition could become life-threatening including serious injury and/or . It is unclear why you have persistent nausea with vomiting, as we have not finished our workup for evaluated this cause. It could possibly be due to a urinary tract infection (UTI). I will send a course of oral antibiotics for you to take for treatment of a UTI. My concern is given your persistent nausea with vomiting, you will not absorb these oral antibiotics and the infection will not be treated properly. Take ciprofloxacin (oral antibiotic) 250 mg every 12 hours x 3 days. It is very important that you have an urgent follow-up with your primary care provider. I recommend you review your home medications with your primary care provider to determine which medications you should still be taking. Return to the hospital if you have any concerns or worsening problems. Pending Studies at Discharge: Yes Studies:: Urine culture Stand-Alone Forms: [facility], Smoking Cessation Medications and DC Order Prescriptions: New ciprofloxacin HCl [Cipro] 250 mg tablet 250 mg PO Q12H Qty: 6 0RF Continued (DME) blood sugar diagnostic Strip See Dose Instructions .ROUTE .MEDSUPPLY Qty: 300 3RF Dose Instruction: As directed Rx Instructions: Testing BS QID. albuterol sulfate 2.5 mg /3 mL (0.083 %) solution for nebulization 2.5 mg INH Q4H PRN (Reason: shortness of breath or wheezing) Qty: 1080 1RF furosemide 40 mg tablet 40 mg PO DAILY PRN (Reason: weight gain) Qty: 30 5RF Rx Instructions: Take 1 tablet daily as needed for sudden weight gain, fluid retention, or shortness of breath. (DME) OneTouch Ultra Test Strip See Rx Instructions .Route Qty: 100 3RF Rx Instructions: Testing blood sugar four times daily aspirin [Adult Aspirin Regimen] 81 mg tablet,delayed release (DR/EC) 81 mg PO DAILY Qty: 90 3RF (DME) Dexcom G7 Sensor Device See Rx Instructions .Route Qty: 12 1RF Rx Instructions: change sensor every 7 days (DME) pen needle, diabetic [BD Camryn 2nd Gen Pen Needle] 32 gauge x 5/32" needle See Dose Instructions .ROUTE .MEDSUPPLY Qty: 200 5RF Rx Instructions: 4 needles per day albuterol sulfate 90 mcg/actuation HFA aerosol inhaler 2 puff Inhalation Q4 PRN (Reason: Shortness Of Breath Or Wheezing) Qty: 18 2RF ondansetron HCl 4 mg tablet 4 mg PO DAILY Qty: 30 0RF cholecalciferol (vitamin D3) [Vitamin D3] 50 mcg (2,000 unit) Capsule 50 mcg PO DAILY hydrocortisone 2.5 % cream 1 applic topical BID PRN (Reason: Skin Irritation) Rx Instructions: Apply to areas of the axilla and groin (skin folds) twice daily x 2 weeks as directed. epinephrine [EpiPen 2-Jer] 0.3 mg/0.3 mL auto-injector 0.3 mg IM DIRECTED PRN (Reason: anaphylaxis) Rx Instructions: for 2 doses insulin lispro [Humalog KwikPen Insulin] 100 unit/mL insulin pen 15 unit subcut TIDM MDD 60 UNITS/DAILY Rx Instructions: TDD 60 units insulin glargine [Lantus Solostar U-100 Insulin] 100 unit/mL (3 mL) insulin pen 68 unit subcut QAM Held Ozempic 0.25 mg or 0.5 mg (2 mg/3 mL) pen injector 0.5 mg subcut Q7D Qty: 3 4RF Hold Instructions: Provider's Order Rx Instructions: PER PT "LOST INSURANCE, HAVEN'T TAKEN FOR SOME TIME". clopidogrel [Plavix] 75 mg tablet 75 mg PO DAILY Qty: 90 1RF Hold Instructions: Provider's Order Rx Instructions: PER PT "LOST INSURANCE, HAVEN'T TAKEN FOR SOME TIME". amlodipine 5 mg tablet 5 mg PO HS Qty: 90 3RF Hold Instructions: Provider's Order Rx Instructions: PT UNSURE IF STILL TAKING THIS MED, UNABLE TO VERIFY ezetimibe 10 mg tablet 10 mg PO DAILY Qty: 90 2RF Hold Instructions: Provider's Order Rx Instructions: PER PT "UNSURE IF STILL TAKING THIS MED". UNABLE TO VERIFY carvedilol 6.25 mg tablet 6.25 mg PO BID Hold Instructions: Provider's Order Rx Instructions: PER PT "LOST INSURANCE, HAVEN'T TAKEN FOR SOME TIME". Discharge Orders: Left Against Medical Advice (Routine); Ordered 09/08/24 Ordered By: Trisha Jimenes Admission Data Admit Date/Time: 09/08/24 04:29 Attending Provider: Babak Sands Admit Provider: Pepper Olivo Primary Care Provider: Alem Cantu. Other Providers: Pepper Olivo Hospital Stay Data Consultations 09/08/24 04:00 ED Decision to Admit Stat Diagnostic Imagining Performed Head CTA 09/08/24 03:18 EXAM: CT angio head wo/w CLINICAL HISTORY: VALLADARES TECHNIQUE: Contrast enhanced thin slice CT angiography scan of the cerebral vessels was performed with and without intravenous contrast. Angiographic images were processed, 3D MIP images were acquired for interpretation. Contiguous axial images were obtained. Reformatted coronal and sagittal images were also reviewed. If IV contrast material had not been administered, the likelihood of detecting abnormalities relevant to the patients condition would have been substantially decreased. CT scan was performed according to ALARA (as low as reasonable achievable). COMPARISON: Sep 19:49:54 [employer]. FINDINGS: Chronic microvascular ischemic changes are noted. Age related cerebral atrophy is seen. Chronic infarct is noted in right ganglio-capsular region. No obvious acute neuroparenchymal abnormality detected. No evidence of space occupying lesion, hemorrhage, edema, mass effect, midline shift, extra axial collection, or hydrocephalus is noted. Ventricles, sulci, and basal cisterns are symmetric and normal in size and configuration. The guerrero-white matter differentiation is preserved. Visualized paranasal sinuses and mastoid air cells are well aerated. Orbital contents are within normal limits. Bony structures are intact. Atherosclerotic calcifications are noted involving cavernous, clinoid and supraclinoid segment of bilateral internal carotid arteries without significant stenosis. Bilateral internal carotid arteries show normal course, calibre and opacification in the canalicular and cavernous part. Their division into the anterior cerebral artery and middle cerebral artery is defined. A1, A2 and M1, M2 segments are normal on both the sides. Bilateral vertebral arteries are seen to unite the form the basilar artery in a normal fashion. Basilar artery shows normal course, caliber and opacification. Its division into the posterior cerebral arteries is defined. Bilateral P1 and P2 segments are normal. Visualized venous structures show normal opacification. No evidence of intracranial aneurysm or AV malformation is seen. IMPRESSION: 1. Chronic microvascular ischemic changes.-stable. 2. Age related cerebral atrophy is seen.-stable. 3. Chronic infarct is noted in right ganglio-capsular region.-stable. 4. No obvious acute neuroparenchymal abnormality detected. MRI of the brain is suggested for better evaluation if clinically indicated. 5. No evidence of stenosis or aneurysm. No evidence of dissection. 6. Atherosclerotic calcifications are noted involving cavernous, clinoid and supraclinoid segment of bilateral internal carotid arteries causing 30%-40% luminal stenosis. However, distal perfusion is noted..-stable. 7. No other new interval abnormality since prior study. Electronically signed by David Das 09-08-2024 04:18 AM Pending Results Patient Have Any Pending Studies at Discharge: Yes Discharge Instructions Given to Patient (Per Discharging Provider) Bridget, You have chosen to leave against medical advice. You have been counselled extensively by myself about the risks associated with leaving against medical advice, including: Worsening of your problems, needing to be readmitted to the hospital again for the same condition, and that your condition could become life-threatening including serious injury and/or . It is unclear why you have persistent nausea with vomiting, as we have not finished our workup for evaluated this cause. It could possibly be due to a urinary tract infection (UTI). I will send a course of oral antibiotics for you to take for treatment of a UTI. My concern is given your persistent nausea with vomiting, you will not absorb these oral antibiotics and the infection will not be treated properly. Take ciprofloxacin (oral antibiotic) 250 mg every 12 hours x 3 days. It is very important that you have an urgent follow-up with your primary care provider. I recommend you review your home medications with your primary care provider to determine which medications you should still be taking. Return to the hospital if you have any concerns or worsening problems. Total Time Total Time Spent Total Time Spent (In Minutes): Greater than 30 minutes spent completing this discharge process including direct patient care, medication reconciliation, documentation, review of labs and images, and coordination of care. Coding Level of Care Code 66277 INP/OBS DISCH >30 MIN Diagnoses Nausea & vomiting R11.2 Vomiting type: unspecified Elevated troponin R77.8 Acute UTI N39.0 Type 2 diabetes mellitus with diabetic microalbuminuria, without long-term current use of insulin E11.29; R80.9 Diabetes mellitus complication detail: with diabetic microalbuminuria Diabetes mellitus complication status: with kidney complications Diabetes mellitus senior care insulin use: without senior care use
--- NOTE | 2024-09-08 11:17 | Electrocardiogram Report ---
Test Reason : Blood Pressure : */* mmHG Vent. Rate : 85 BPM Atrial Rate : 85 BPM P-R Int : 182 ms QRS Dur : 78 ms QT Int : 380 ms P-R-T Axes : 60 5 116 degrees QTcB Int : 452 ms Normal sinus rhythm Left ventricular hypertrophy with repolarization abnormality ( R in aVL ) Abnormal ECG When compared with ECG of 26-Nov-2021 01:00, Inverted T waves have replaced nonspecific T wave abnormality in Lateral leads Confirmed by Kostas Bolton ([id number]) on 09/08/2024 11:17:30 AM Referred By: REFERRED SELF Confirmed By: Kostas Bolton
--- NOTE | 2024-09-08 11:19 | Electrocardiogram Report ---
Test Reason : Blood Pressure : */* mmHG Vent. Rate : 77 BPM Atrial Rate : 77 BPM P-R Int : 190 ms QRS Dur : 78 ms QT Int : 404 ms P-R-T Axes : 63 -5 115 degrees QTcB Int : 457 ms Normal sinus rhythm Moderate voltage criteria for LVH, may be normal variant ( R in aVL ) Anterior infarct , age undetermined T wave abnormality, consider lateral ischemia Abnormal ECG When compared with ECG of 08-Sep-2024 02:18, (unconfirmed) No significant change was found Confirmed by Kostas Bolton ([id number]) on 09/08/2024 11:18:55 AM Referred By: REFERRED SELF Confirmed By: Kostas Bolton
== END 2024-09-08 08:46 | disposition left against medical advice (07) ==
LOC: EDINP 01:53 → ED 01:53 → SUATTDRO 04:29 → EDINP 08:53

== ENCOUNTER 2024-09-09 20:45 | Observation (INO) ==
[2024-09-09 21:43] LABS: Hematocrit (blood only) 49.7 % (37.0-47.0); Hemoglobin 16.0 g/dl (12.0-16.0); Immature Granulocytes # (auto) 0.05 K/uL (0.01-0.20); Immature Granulocytes % (auto) 0.4 %; Mean Corpuscular Hemoglobin 25.5 pg (25.0-34.0); Mean Corpuscular Volume 79.1 fL (80.0-100.0); Platelet Count 288 K/uL (130-400); RDW Standard Deviation 41.5 fL (36.4-46.3); Red Blood Count 6.28 M/uL (4.20-5.40); White Blood Count 11.23 K/ul (4.8-10.8)
[2024-09-09] MEDS: ONDANSETRON INJ 2 MG/ML 2 ML VIAL IV STA (21:47)
[2024-09-09] MEDS: PROMETHAZINE 6.25 MG/50.25 ML BAG IV STA (21:49)
[2024-09-09] MEDS: SODIUM CHLORIDE 0.9% 1,000 ML IV ONE (21:51)
--- NOTE | 2024-09-09 21:58 | Emergency Department Note ---
Impression & Plan UTI (urinary tract infection), Vomiting, Leukocytosis, Failure of outpatient treatment ED Provider Note NAME: BECCA RAMIREZ AGE: 54 SEX: F : 1970 ARRIVES VIA: Walk-In INFORMANT: [Patient] ED PROVIDER(S): [Roni Frost MD] CHIEF COMPLAINT: Vomiting HISTORY OF PRESENT ILLNESS: The patient is a 54-year-old female who was in our hospital yesterday but left AMA. She had issues with family. She had been diagnosed with UTI, she had been vomiting. She came back to the ER for evaluation yesterday after her AMA discharge as she was continuing to vomit. She was treated here for symptoms and given IV antibiotics. The patient states that she is back again for the same reasons. She was only able to tolerate 2 doses of her antibiotic. She is still vomiting. She feels washed out and weak. She is now willing to stay in the hospital for further care. There is no flank pain, no urinary complaints. She has not a cough or cold or congestion. She has felt hot at times but has not noticed any fever. She has been sick in total for about 5 days. PMHx/PSHx/Social Hx: See Below PHYSICAL EXAM: GENERAL: Patient is in no acute distress. HEENT: No acute trauma, normocephalic atraumatic, mucous membranes moist, no nasal congestion. NECK: No stridor, no adenopathy, no meningismus, trachea is midline. LUNGS: Clear to auscultation bilaterally, no wheeze, no rhonchi, breath sounds equal. HEART: Without murmurs gallops or rubs, regular rate and rhythm. ABDOMEN: Soft, nontender, no peritonitis. EXTREMITIES: No cyanosis, full range of motion of all the joints without pain or difficulty. NEUROLOGIC: Oriented x 3, no acute motor or sensory deficits, no focal weakness. SKIN: No jaundice, no diaphoresis. DIFFERENTIAL DIAGNOSIS: Dehydration, failed outpatient management, UTI, pyelonephritis, among others. EMERGENCY DEPARTMENT PROCEDURES: MEDICAL DECISION MAKING: There is a mild leukocytosis, this would be consistent with infection. There was a normal hemoglobin. There was a normal platelet count. No renal failure or significant electrolyte abnormality. Lactic acid level is not elevated making sepsis less likely. There is no concerning liver enzyme elevation. No evidence for pancreatitis. Urinalysis is suggestive of infection. Urine culture from 09/08 does show E. coli, sensitivities are pending. On exam, the patient was not febrile or toxic. Patient received IV saline, IV Phenergan, IV Zofran and IV ceftriaxone. The patient has failed outpatient treatment for her urinary infection. She is persistently vomiting despite Zofran. She is not tolerating her oral antibiotics. The patient is now agreeable to hospitalization and further inpatient care. I did speak with case management, the on-call hospitalist was consulted. Prior/Outside records/notes reviewed: Discharge summary note from 09/08/2024 describing her hospital presentation, her findings and discharge AMA. Imaging/x-ray results per my interpretation: Chronic Medical/Social conditions affecting care: None Care/Management discussed with: Case management, the on-call hospitalist. Level of care consideration(s): After review of the information above and other included data: --I believe the patient requires escalation of care to admission DISPOSITION: Admission Past Med/Surg History Problem List Failure of outpatient treatment (Acute) Leukocytosis (Acute) Vomiting (Acute) UTI (urinary tract infection) (Acute) Acute cystitis (Acute) Nausea & vomiting (Acute) Elevated troponin (Acute) Asymptomatic bacteriuria Dehydration (Acute) Nausea & vomiting (Acute) Acute UTI (Acute) Lumbar facet joint syndrome Chronic low back pain Spondylolisthesis of lumbosacral region Vitamin D deficiency Cardiomyopathy Hyperlipidemia Microalbuminuria Obesity Hyperparathyroidism H/O hyperparathyroidism Wrist tendonitis Rupture of right proximal biceps tendon Hypercalcemia History of CVA (cerebrovascular accident) (~09/2021) Psoriasis Eczema PTSD (post-traumatic stress disorder) Hypertension Dyslipidemia Depression Anxiety Asthma Pulmonary nodule Type 2 diabetes mellitus Asthma Ovarian cyst Medical History COVID-19 Uncontrolled type 2 diabetes mellitus Cellulitis and abscess of face (~12/2019) Surgical History Hx of salpingo-oophorectomy, bilateral S/P endometrial ablation S/P tubal ligation S/P tonsillectomy and adenoidectomy S/P rotator cuff repair R shoulder Hx of hysterectomy H/O section S/P carpal tunnel release R hand Dec 2016, L hand Feb 2017 Family History Father Hypertension Prostate cancer Mother Diabetes Gallbladder disease Dementia Sister Anxiety Depression Drug abuse Brother Depression Drug abuse Grandmother (Maternal) Dementia Social History Smoking Status: Current every day smoker Tobacco Type: Cigarettes Age Started Using Tobacco: 28; packs per day: 1; Second Hand Exposure: Yes; Do You Dip or Chew Tobacco: No; Hx Alcohol Use: Yes Hx Substance Use: No Preferred Language: Kyrgyz Communication Ability: Effective Visual Impairment: No Limitations Hearing Ability: Normal Tester/Lift Trucker Required: No Beliefs That Will Affect Care: None marital status: Single Current Living Situation: Family Current Living Situation Comment: w/ adult son current occupational status: employed 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 Feels Safe at Home: Yes Diet: regular Diet Comment: regular caffeine: Yes during the past year weight has: remained stable Dental Care, Regularly: No Physical Activity Frequency: Daily Seatbelt Use: always Sunscreen Use: Yes Allergies Allergies Allergy/AdvReac Type Severity Reaction Status Date / Time avocado Allergy Severe SWELLING Verified 09/08/24 02:14 OF THROAT,ITCHING banana Allergy Severe THROAT Verified 09/08/24 02:14 SWELLING,ITCHING pollen extracts Allergy Intermediate ITCHY Verified 09/08/24 02:14 EYES, SNEEZING, CONGESTION latex AdvReac Intermediate RASH,ITCHIN Verified 09/08/24 02:14 G Laympjs-UAP-UlL Reductase AdvReac Intermediate could not Verified 09/08/24 02:14 Inhibitor stay awake [Dgzthzd-Qms-Vly Reductase Inhibitor] Home Meds Home Medications Medication Instructions Recorded Confirmed carvedilol 6.25 mg tablet 6.25 mg PO BID 09/08/24 09/09/24 cholecalciferol (vitamin D3) 50 50 mcg PO DAILY 09/08/24 09/09/24 mcg (2,000 unit) capsule (Vitamin D3) epinephrine 0.3 mg/0.3 mL 0.3 mg IM DIRECTED PRN 09/08/24 09/09/24 injection, auto-injector (EpiPen anaphylaxis 2-Jer) hydrocortisone 2.5 % topical cream 1 applic topical BID PRN Skin 09/08/24 09/09/24 Irritation insulin glargine 100 unit/mL (3 68 unit subcut QAM 09/08/24 09/09/24 mL) subcutaneous pen (Lantus Solostar U-100 Insulin) insulin lispro 100 unit/mL 15 unit subcut TIDM 09/08/24 09/09/24 subcutaneous pen (Humalog KwikPen (U-100) Insulin) Previous Rx's Medication Instructions Recorded blood sugar diagnostic #300 ea 04/26/21 albuterol sulfate 2.5 mg/3 mL 2.5 mg (3 mL) inhalation Q4H PRN 05/09/21 (0.083 %) solution for nebulization shortness of breath or wheezing #1,080 mL furosemide 40 mg tablet 40 mg PO DAILY PRN weight gain #30 04/24/22 tabs blood sugar diagnostic (OneTouch #100 ea 09/20/22 Ultra Test strips) aspirin 81 mg tablet,delayed 81 mg PO DAILY #90 tabs 06/28/23 release (Adult Aspirin Regimen) semaglutide 0.25 mg or 0.5 mg (2 0.5 mg (0.736 mL) subcut Q7D #3 mL 09/21/23 mg/3 mL) subcutaneous pen injector (Ozempic) albuterol sulfate 90 mcg/actuation 2 puff inhalation Q4 PRN Shortness 10/08/23 aerosol inhaler Of Breath Or Wheezing #18 grams ondansetron HCl 4 mg tablet 4 mg PO DAILY #30 tabs 10/11/23 clopidogrel 75 mg tablet (Plavix) 75 mg PO DAILY #90 tabs 11/29/23 blood-glucose sensor (Dexcom G7 #12 ea 01/07/24 Sensor device) amlodipine 5 mg tablet 5 mg PO HS #90 tabs 02/11/24 pen needle, diabetic 32 gauge x #200 ea 03/24/24" (BD Camryn 2nd Gen Pen Needle) ezetimibe 10 mg tablet 10 mg PO DAILY #90 tabs 03/31/24 cefdinir 300 mg capsule 300 mg PO Q12H 5 days #10 caps 09/08/24 ciprofloxacin HCl 250 mg tablet 250 mg PO Q12H #6 tabs 09/08/24 (Cipro) ondansetron 4 mg disintegrating 4 mg PO Q8H PRN nausea and 09/08/24 tablet vomiting 5 days #14 tabs Results & Data (ED) Vital Signs Vital Signs - 24 hr 09/09/24 20:48 09/09/24 22:12 09/09/24 22:30 Temperature 36.8 C Temperature Source Oral Pulse Rate 108 H 97 H 101 H Pulse Rate from SpO2 Sensor 102 H Pulse Rhythm Regular Pulse Strength Normal Respiratory Rate 20 19 Respiratory Effort / Characteristics Non-Labored Spontaneous Respiratory Depth Normal Respiratory Pattern Regular Blood Pressure 128/91 158/72 H Blood Pressure Mean 103 100 Blood Pressure Position Sitting Pulse Oximetry 97 96 Oxygen Delivery Method Room Air Room Air Sepsis Recent Fever Within 48 Hours Yes Sepsis New/Unexplained Change in Mental Status N/A Sepsis Action Taken by Nursing No Action Required 09/09/24 23:00 09/10/24 00:00 09/10/24 00:30 Temperature Temperature Source Pulse Rate 103 H 92 H 105 H Pulse Rate from SpO2 Sensor 103 H Pulse Rhythm Pulse Strength Respiratory Rate 24 19 24 Respiratory Effort / Characteristics Respiratory Depth Respiratory Pattern Blood Pressure 160/90 H 156/87 H 139/81 Blood Pressure Mean 113 105 100 Blood Pressure Position Pulse Oximetry 96 96 Oxygen Delivery Method Room Air Room Air Sepsis Recent Fever Within 48 Hours Sepsis New/Unexplained Change in Mental Status Sepsis Action Taken by [facility] Medications Current Medication List: was personally reviewed by me Laboratory Data Attestation: I reviewed the patient's lab results. 09/09/24 21:29 09/09/24 21:29 Lab Results 09/09/24 09/09/24 Range/Units 21:29 23:06 WBC 11.23 H (4.8-10.8) K/ul RBC 6.28 H (4.20-5.40) M/uL Hgb 16.0 (12.0-16.0) g/dl Hct 49.7 H (37.0-47.0) % MCV 79.1 L (80.0-100.0) fL MCH 25.5 (25.0-34.0) pg MCHC 32.2 (32.0-36.0) g/dL RDW Std Deviation 41.5 (36.4-46.3) fL RDW Coeff of Tre 15.2 H (11.5-14.5) % Plt Count 288 (130-400) K/uL MPV 10.1 (9.4-12.4) fL Immature Gran % (Auto) 0.4 % Neut % (Auto) 73.5 % Lymph % (Auto) 18.2 % Grand % (Auto) 6.2 % Eos % (Auto) 0.8 % Baso % (Auto) 0.9 % Neut # (Auto) 8.25 H (1.40-6.50) K/uL Lymph # (Auto) 2.04 (1.20-3.40) K/uL Grand # (Auto) 0.70 H (0.11-0.59) K/uL Eos # (Auto) 0.09 (0.00-0.50) K/uL Baso # (Auto) 0.10 (0.00-0.20) K/uL Immature Gran # (Auto) 0.05 (0.01-0.20) K/uL Sodium 140 (136-145) mmol/L Potassium 3.7 (3.5-5.1) mmol/L Chloride 102 (98-107) mmol/L Carbon Dioxide 31 (21-32) mmol/L Anion Gap 7 (3-11) BUN 12 (6-23) mg/dl Creatinine 1.01 (0.6-1.2) mg/dl Est Cr Clr Drug Dosing 73.7 ml/min eGFR 65.33 BUN/Creatinine Ratio 11.9 (10-20) Glucose 170 H (70-99(Fasting)) mg/dl Lactate 1.0 (0.4-2.0) mmol/L Calcium 10.2 (8.6-10.3) mg/dl Total Bilirubin 0.6 (0.2-1.0) mg/dl AST 22 (13-39) U/L ALT 19 (7-52) U/L Alkaline Phosphatase 100 (34-104) U/L Total Protein 8.0 (6.0-8.3) gm/dl Albumin 4.1 (3.4-5.0) gm/dl Globulin 3.9 (2.5-4.0) gm/dl Albumin/Globulin Ratio 1.1 (0.9-2) Lipase 23 (11-82) U/L Urine Color Dark Yellow Urine Appearance Cloudy A (Clear) Urine pH 6.0 (4.5-7.5) Ur Specific Cullen 1.028 (1.000-1.030) Urine Protein 3+ H (Negative) Urine Glucose (UA) Negative (Negative) Urine Ketones 1+ H (Negative) Urine Blood Trace H (Negative) Urine Nitrite Negative (Negative) Urine Bilirubin 1+ H (Negative) Urine Urobilinogen Negative (Negative) Ur Leukocyte Esterase Trace H (Negative) Urine WBC (Auto) 11-20 H (0-5) /hpf Urine RBC (Auto) 6-10 H (0-2) /hpf U Hyaline Cast (Auto) >20 H (0-2) /lpf U Epithel Cells (Auto) 6-10 H (0-2) /hpf Urine Bacteria (Auto) 1+ H (None Seen) Hyaline Casts Present A (None Presnt) /lpf Urine Mucus Present A (None Prsent) Urine Comment Administered Medications Discontinued Medications Sodium Chloride (Nss) 1,000 mls @ 999 mls/hr IV .Q1H1M ONE Stop: 09/09/24 22:34 Last Infusion: 09/09/24 22:45 Dose: Infused Documented By: Admin: 09/09/24 21:51 Dose: 999 mls/hr Documented By: HUEY Promethazine HCl (Phenergan) 6.25 mg in 50.25 mls @ 201 mls/hr IV NOW STA Stop: 09/09/24 21:48 Last Infusion: 09/09/24 22:34 Dose: Infused Documented By: Admin: 09/09/24 21:49 Dose: 201 mls/hr Documented By: HUEY Ceftriaxone Sodium (Rocephin) 2,000 mg in 50 mls @ 100 mls/hr IV NOW STA Stop: 09/09/24 22:03 Last Infusion: 09/09/24 22:40 Dose: Infused Documented By: Admin: 09/09/24 22:09 Dose: 100 mls/hr Documented By: HUEY Ondansetron HCl (Ondansetron Inj 2 Mg/Ml 2 Ml Vial) 4 mg IV NOW STA Stop: 09/09/24 21:35 Last Admin: 09/09/24 21:47 Dose: 4 mg Documented By: HUEY Imaging Data Radiologist's Impression: Abdomen/Pelvis CT 09/09/24 23:00 Exam(s): CT ABDOMEN + PELVIS Without Contrast EXAM: CT Abdomen and Pelvis Without Intravenous Contrast CLINICAL HISTORY: Reason for exam: N/V, hx kidney stone. TECHNIQUE: Axial computed tomography images of the abdomen and pelvis without intravenous contrast. CTDI is 28.02 mGy and DLP is 155.3 mGy-cm. Automated exposure control was utilized for the study. A dose lowering technique was utilized adhering to the principles of ALARA. COMPARISON: CT abdomen and pelvis: 08/13/2013 FINDINGS: Lung bases: Unremarkable. No mass. No consolidation. Heart: There are scattered coronary artery calcifications. ABDOMEN: Liver: Unremarkable. Gallbladder and bile ducts: There are numerous intraluminal gallstones. No pericholecystic inflammatory changes are noted. No ductal dilation. Pancreas: Unremarkable. No ductal dilation. Spleen: Unremarkable. No splenomegaly. Adrenals: Unremarkable. No mass. Kidneys and ureters: Unremarkable. No obstructing stones. No hydronephrosis. Stomach and bowel: Unremarkable. No obstruction. No mucosal thickening. PELVIS: Appendix: The appendix is normal. No free air. No abscess. Bladder: Unremarkable. No stones. Reproductive: Unremarkable as visualized. ABDOMEN and PELVIS: Intraperitoneal space: See above. Bones/joints: There are scattered aortic and iliac artery arthritic calcifications. No aneurysm. There is mild grade 1 anterolisthesis at L4-5 secondary to facet arthrosis. There is multilevel thoracolumbar degenerative disc disease. No fracture. No destructive osseous abnormalities. No dislocation. Soft tissues: Unremarkable. Vasculature: See above. Lymph nodes: Unremarkable. No enlarged lymph nodes. IMPRESSION: Cholelithiasis without evidence of acute cholecystitis. Electronically signed by: Nadir Collado MD 09/10/24 00:01 AM Discharge Plan Visit Data Chief Complaint: Vomiting Stated Complaint: INFECTION ED Provider: Roni Frost Discharge Problem: UTI (urinary tract infection), Vomiting, Leukocytosis, Failure of outpatient treatment Patient Disposition: Admitted As Inpatient Condition: Fair Forms Stand Alone Forms: [facility] [employer] [place] Prescriptions Prescriptions: No Action (DME) blood sugar diagnostic Strip See Dose Instructions .ROUTE .MEDSUPPLY Qty: 300 3RF Dose Instruction: As directed Rx Instructions: Testing BS QID. albuterol sulfate 2.5 mg /3 mL (0.083 %) solution for nebulization 2.5 mg INH Q4H PRN (Reason: shortness of breath or wheezing) Qty: 1080 1RF furosemide 40 mg tablet 40 mg PO DAILY PRN (Reason: weight gain) Qty: 30 5RF Rx Instructions: Take 1 tablet daily as needed for sudden weight gain, fluid retention, or shortness of breath. (DME) OneTouch Ultra Test Strip See Rx Instructions .Route Qty: 100 3RF Rx Instructions: Testing blood sugar four times daily aspirin [Adult Aspirin Regimen] 81 mg tablet,delayed release (DR/EC) 81 mg PO DAILY Qty: 90 3RF Ozempic 0.25 mg or 0.5 mg (2 mg/3 mL) pen injector 0.5 mg subcut Q7D Qty: 3 4RF Hold Instructions: Provider's Order Rx Instructions: PER PT "LOST INSURANCE, HAVEN'T TAKEN FOR SOME TIME". clopidogrel [Plavix] 75 mg tablet 75 mg PO DAILY Qty: 90 1RF Hold Instructions: Provider's Order Rx Instructions: PER PT "LOST INSURANCE, HAVEN'T TAKEN FOR SOME TIME". (DME) Dexcom G7 Sensor Device See Rx Instructions .Route Qty: 12 1RF Rx Instructions: change sensor every 7 days amlodipine 5 mg tablet 5 mg PO HS Qty: 90 3RF Hold Instructions: Provider's Order Rx Instructions: PT UNSURE IF STILL TAKING THIS MED, UNABLE TO VERIFY (DME) pen needle, diabetic [BD Camryn 2nd Gen Pen Needle] 32 gauge x 5/32" needle See Dose Instructions .ROUTE .MEDSUPPLY Qty: 200 5RF Rx Instructions: 4 needles per day ezetimibe 10 mg tablet 10 mg PO DAILY Qty: 90 2RF Hold Instructions: Provider's Order Rx Instructions: PER PT "UNSURE IF STILL TAKING THIS MED". UNABLE TO VERIFY albuterol sulfate 90 mcg/actuation HFA aerosol inhaler 2 puff Inhalation Q4 PRN (Reason: Shortness Of Breath Or Wheezing) Qty: 18 2RF ondansetron HCl 4 mg tablet 4 mg PO DAILY Qty: 30 0RF ondansetron 4 mg tablet,disintegrating 4 mg PO Q8H PRN (Reason: nausea and vomiting) 5 Days Qty: 14 0RF cefdinir 300 mg capsule 300 mg PO Q12H 5 Days Qty: 10 0RF cholecalciferol (vitamin D3) [Vitamin D3] 50 mcg (2,000 unit) Capsule 50 mcg PO DAILY carvedilol 6.25 mg tablet 6.25 mg PO BID Hold Instructions: Provider's Order Rx Instructions: PER PT "LOST INSURANCE, HAVEN'T TAKEN FOR SOME TIME". hydrocortisone 2.5 % cream 1 applic topical BID PRN (Reason: Skin Irritation) Rx Instructions: Apply to areas of the axilla and groin (skin folds) twice daily x 2 weeks as directed. epinephrine [EpiPen 2-Jer] 0.3 mg/0.3 mL auto-injector 0.3 mg IM DIRECTED PRN (Reason: anaphylaxis) Rx Instructions: for 2 doses insulin lispro [Humalog KwikPen Insulin] 100 unit/mL insulin pen 15 unit subcut TIDM MDD 60 UNITS/DAILY Rx Instructions: TDD 60 units insulin glargine [Lantus Solostar U-100 Insulin] 100 unit/mL (3 mL) insulin pen 68 unit subcut QAM ciprofloxacin HCl [Cipro] 250 mg tablet 250 mg PO Q12H Qty: 6 0RF Referrals Referrals: Alem Cantu DO [Primary Care Provider] - Discharge Problem: UTI (urinary tract infection) Qualifiers: Urinary tract infection type: acute cystitis Hematuria presence: without hematuria Qualified Code(s): N30.00 - Acute cystitis without hematuria Vomiting Qualifiers: Vomiting type: unspecified Nausea presence: with nausea Qualified Code(s): R 11.2 - Nausea with vomiting, unspecified Leukocytosis Qualifiers: Leukocytosis type: unspecified Qualified Code(s): D72.829 - Elevated white blood cell count, unspecified
[2024-09-09 21:59] LABS: Alanine Aminotransferase 19.0 U/L (7-52); Albumin Globulin Ratio 1.1 (0.9-2); Albumin Level 4.1 gm/dl (3.4-5.0); Alkaline Phosphatase 100.0 U/L (34-104); Anion Gap 7.0 (3-11); Bilirubin,Total 0.6 mg/dl (0.2-1.0); Blood Urea Nitrogen 12.0 mg/dl (6-23); Calcium 10.2 mg/dl (8.6-10.3); Carbon Dioxide 31.0 mmol/L (21-32); Chloride 102.0 mmol/L (98-107); Creatinine Clr Calc Pharmacy 73.7 ml/min; Globulin 3.9 gm/dl (2.5-4.0); Glucose 170.0 mg/dl (70-99(Fasting)); Lipase 23.0 U/L (11-82); Potassium 3.7 mmol/L (3.5-5.1); Sodium 140.0 mmol/L (136-145); Total Protein 8.0 gm/dl (6.0-8.3)
[2024-09-09] MEDS: cefTRIAXone SODIUM 2,000 MG/50 ML BAG IV STA (22:09)
[2024-09-09 22:19] LABS: Appearance Urine Cloudy (Clear); Bacteria Urine Automated 1+ (None Seen); Cast Urine Automated >20 /lpf (0-2); Glucose Urine UA Negative (Negative)
--- NOTE | 2024-09-09 23:00 | History & Physical Report ---
Date of Service September 09, 2024 Assessment & Plan (1) Nausea & vomiting: (2) Type 2 diabetes mellitus: (3) Hypertension: (4) History of CVA (cerebrovascular accident): Plan Pt is a 54 yo female with a past med hx of DMT2 on insulin, HTN, HLD, cardiomyopathy, depression, hyperparathyroidism, and current smoker <1 ppd who presents to the hospital on 09/09 for the third time in 2 days for intractable nausea and vomiting. #Intractable nausea/vomiting - not having overt urinary symptoms but is tender over the bladder - CT abd/pelvis w/o con done; cholelithiasis but no sign of acute cholecystitis - urine cx from 09/08; e coli, will continue CTX (had been discharged with cef dinir but also cipro but noted issues with taking this due to N/V and confusion around these) - suspect viral gastroenteritis vs UTI as cause of N/V, although question sporadic use of ozempic may be contributing - zofran IV prn - will do liquid diet for now, if continued symptoms would consider NPO bowel rest for a short time - IVF 125/hr - protonix 40 mg IV BID #DMT2 on insulin - home regime; 68 units am, humalog 15 units with meals, ozempic - last dose of ozempic 2 weeks ago - will do lantus 25 units BID and SSI with meals #HTN - last admission noted pt unsure if taking amlodipine so will hold that as well as her carvedilol for same reason #Hx CVA - pt noted on admission 2 days ago that she is no longer taking plavix since it is not covered by insurance, will continue her ASA Continue home inhalers. VTE: low risk; SCDs and ambulate as tolerated History of Present Illness Chief Complaint: Vomiting Primary Care Provider: Alem aCntu DO Pt is a 54 yo female with a past med hx of DMT2 on insulin, HTN, HLD, cardiomyopathy, depression, hyperparathyroidism, and current smoker <1 ppd who presents to the hospital on 09/09 for the third time in 2 days for intractable nausea and vomiting. Pt states symptoms started on Sunday with sudden onset of nonbloody vomiting. She states that symptoms continued throughout the weekend, prompting her to come in on Sunday to the ER due to concerns that the recurrent vomiting was going to or had already made her quite dehydrated. Pt states she has not had any diarrhea, last BM was days ago and she is usually quite regular but has had poor intake the last few days due to vomiting. No abdominal pain or dysuria. She does not have a hx of passing kidney stones but states she had an MRI for her back recently which showed a stone in the kidney. She states even sips of nanci elsie make her very nauseated but since she has been here she has been eating potato chips and crackers. She was admitted Sunday and left AMA a few hours later. She returned again Sunday evening for continued symptoms and then returned to the ER again Sunday for continued symptoms. Still denies abdominal pain. No chest pain or SOB. She smoked <1ppd. Does not want nicotine patch. Denies marijuana or other drug use. Denies alcohol use. Water source is well water, she uses filters in her home and believes they are working fine. No diarrhea. Lives with disabled son, who is not sick. No recent travel outside the country. She denies recent medication changes but does admit spotty compliance with her ozempic. She states she was titrated up on this and got significant GI distress so was titrated back down but does sometimes miss or skip doses. Last dose was 2 weeks ago. Allergies Allergy/AdvReac Type Severity Reaction Status Date / Time avocado Allergy Severe SWELLING Verified 09/08/24 02:14 OF THROAT,ITCHING banana Allergy Severe THROAT Verified 09/08/24 02:14 SWELLING,ITCHING pollen extracts Allergy Intermediate ITCHY Verified 09/08/24 02:14 EYES, SNEEZING, CONGESTION latex AdvReac Intermediate RASH,ITCHIN Verified 09/08/24 02:14 G Mvbryaa-AYC-ElV Reductase AdvReac Intermediate could not Verified 09/08/24 02:14 Inhibitor stay awake [Ynhrmkd-Rte-Los Reductase Inhibitor] Home Medications Medication Instructions Recorded Confirmed Type blood sugar diagnostic #300 ea 04/26/21 10/08/23 Rx albuterol sulfate 2.5 mg/3 mL 2.5 mg (3 mL) inhalation Q4H PRN 05/09/21 09/09/24 Rx (0.083 %) solution for nebulization shortness of breath or wheezing #1,080 mL furosemide 40 mg tablet 40 mg PO DAILY PRN weight gain #30 04/24/22 09/09/24 Rx tabs blood sugar diagnostic (OneTouch #100 ea 09/20/22 10/08/23 Rx Ultra Test strips) aspirin 81 mg tablet,delayed 81 mg PO DAILY #90 tabs 06/28/23 09/09/24 Rx release (Adult Aspirin Regimen) semaglutide 0.25 mg or 0.5 mg (2 0.5 mg (0.736 mL) subcut Q7D #3 mL 09/21/23 09/09/24 Rx mg/3 mL) subcutaneous pen injector (OzMobile Sorcery) albuterol sulfate 90 mcg/actuation 2 puff inhalation Q4 PRN Shortness 10/08/23 09/09/24 Rx aerosol inhaler Of Breath Or Wheezing #18 grams ondansetron HCl 4 mg tablet 4 mg PO DAILY #30 tabs 10/11/23 09/09/24 Rx clopidogrel 75 mg tablet (Plavix) 75 mg PO DAILY #90 tabs 11/29/23 09/09/24 Rx blood-glucose sensor (Dexcom G7 #12 ea 01/07/24 Rx Sensor device) amlodipine 5 mg tablet 5 mg PO HS #90 tabs 02/11/24 09/09/24 Rx pen needle, diabetic 32 gauge x #200 ea 03/24/24 Rx 5/32" (BD Camryn 2nd Gen Pen Needle) ezetimibe 10 mg tablet 10 mg PO DAILY #90 tabs 03/31/24 09/09/24 Rx carvedilol 6.25 mg tablet 6.25 mg PO BID 09/08/24 09/09/24 History cholecalciferol (vitamin D3) 50 50 mcg PO DAILY 09/08/24 09/09/24 History mcg (2,000 unit) capsule (Vitamin D3) ciprofloxacin HCl 250 mg tablet 250 mg PO Q12H #6 tabs 09/08/24 09/09/24 Rx (Cipro) epinephrine 0.3 mg/0.3 mL 0.3 mg IM DIRECTED PRN 09/08/24 09/09/24 History injection, auto-injector (EpiPen anaphylaxis 2-Jer) hydrocortisone 2.5 % topical cream 1 applic topical BID PRN Skin 09/08/24 09/09/24 History Irritation insulin glargine 100 unit/mL (3 68 unit subcut QAM 09/08/24 09/09/24 History mL) subcutaneous pen (Lantus Solostar U-100 Insulin) insulin lispro 100 unit/mL 15 unit subcut TIDM 09/08/24 09/09/24 History subcutaneous pen (Humalog KwikPen (U-100) Insulin) Past Med/Surg History Problem List (Updated 09/10/24 @ 01:45 by Jerome Bhat) Failure of outpatient treatment (Acute) Leukocytosis (Acute) Vomiting (Acute) UTI (urinary tract infection) (Acute) Acute cystitis (Acute) Nausea & vomiting (Acute) Elevated troponin (Acute) Asymptomatic bacteriuria Dehydration (Acute) Nausea & vomiting (Acute) Acute UTI (Acute) Lumbar facet joint syndrome Chronic low back pain Spondylolisthesis of lumbosacral region Vitamin D deficiency Cardiomyopathy Hyperlipidemia Microalbuminuria Obesity Hyperparathyroidism H/O hyperparathyroidism Wrist tendonitis Rupture of right proximal biceps tendon Hypercalcemia History of CVA (cerebrovascular accident) (~09/2021) Psoriasis Eczema PTSD (post-traumatic stress disorder) Hypertension Dyslipidemia Depression Anxiety Asthma Pulmonary nodule Type 2 diabetes mellitus Asthma Ovarian cyst Medical History COVID-19 Uncontrolled type 2 diabetes mellitus Cellulitis and abscess of face (~12/2019) Surgical History Hx of salpingo-oophorectomy, bilateral S/P endometrial ablation S/P tubal ligation S/P tonsillectomy and adenoidectomy S/P rotator cuff repair R shoulder Hx of hysterectomy H/O section S/P carpal tunnel release R hand Dec 2016, L hand Feb 2017 Family History Father Hypertension Prostate cancer Mother Diabetes Gallbladder disease Dementia Sister Anxiety Depression Drug abuse Brother Depression Drug abuse Grandmother (Maternal) Dementia Social History Smoking Status: Current every day smoker Tobacco Type: Cigarettes Age Started Using Tobacco: 28; packs per day: 1; Second Hand Exposure: Yes; Do You Dip or Chew Tobacco: No; Hx Alcohol Use: No Hx Substance Use: No Preferred Language: Cuban Communication Ability: Effective Visual Impairment: No Limitations Hearing Ability: Normal Cath Lab Manager Required: No Beliefs That Will Affect Care: None marital status: Single Current Living Situation: Family Current Living Situation Comment: w/ adult son current occupational status: employed current occupation: healthcare network consultant Feels Safe at Home: Yes Diet: regular Diet Comment: regular caffeine: Yes during the past year weight has: remained stable Dental Care, Regularly: No Physical Activity Frequency: Daily Seatbelt Use: always Sunscreen Use: Yes Review of Systems Review of Systems: Per HPI. Physical Exam Physical Exam: General: Alert and oriented, no acute distress, fatigued appearing HEENT: Normocephalic, moist oral mucosa, Cardio: Regular rate and rhythm, no murmur, Resp: Lungs clear to auscultation b/l, no wheezes or rhonchi, GI: Soft, nondistended, bowel sounds active, tenderness noted with palpation over the bladder Skin: Warm, pink, dry, Results & Data Results & Data Vital Signs (Past 12 Hours) Vital Signs Temp Pulse Resp BP Pulse Ox O2 Del Method 09/09/24 22:30 101 H 19 158/72 H 96 Room Air 09/09/24 22:12 97 H 09/09/24 20:48 36.8 C 108 H 20 128/91 97 Room Air Supervising Physician Co-Signing Physician Notes I personally saw and examined the patient. I independently reviewed the labs, EKG, imaging, problem list, medication list, past medical history and family history. I verified all lawson points and agree with resident physician Dr Kavya Garcia DO with the following exceptions and/or additions: 54 year old female presents to the ER with intractable nausea and vomiting. No specific urinary symptoms. No diarrhea. Patient taking both cefdinir and ciprofloxacin - discussed she should have only been using one of these. O/E HS RRR, no murmurs, Chest CTAB, Abdo suprapubic pain A/P Intractable nausea and vomiting - ?secondary to UTI, start on ceftriaxone pending repeat urine culture as unclear if she has been keeping the antibiotics down. Ondansetron IV, Clear liquids diet. Resident Activity Tracking Resident Involvement: Resident Care Provided Care Provided: Adult Hospital Medicine (2) Type 2 diabetes mellitus Diabetes mellitus complication detail: with diabetic microalbuminuria D iabetes mellitus complication status: with kidney complications Diabetes mellitus termite control service representative insulin use: without termite control service representative use Qualified Code(s): E11.29 - Type 2 diabetes mellitus with other diabetic kidney complication; R80.9 - Proteinuria, unspecified (3) Hypertension Hypertension type: primary hypertension Qualified Code(s): I10 - Essential (primary) hypertension
--- NOTE | 2024-09-10 00:03 | CT Scan Report ---
Exam(s): CT ABDOMEN + PELVIS Without Contrast EXAM: CT Abdomen and Pelvis Without Intravenous Contrast CLINICAL HISTORY: Reason for exam: N/V, hx kidney stone. TECHNIQUE: Axial computed tomography images of the abdomen and pelvis without intravenous contrast. CTDI is 28.02 mGy and DLP is 155.3 mGy-cm. Automated exposure control was utilized for the study. A dose lowering technique was utilized adhering to the principles of ALARA. COMPARISON: CT abdomen and pelvis: 08/13/2013 FINDINGS: Lung bases: Unremarkable. No mass. No consolidation. Heart: There are scattered coronary artery calcifications. ABDOMEN: Liver: Unremarkable. Gallbladder and bile ducts: There are numerous intraluminal gallstones. No pericholecystic inflammatory changes are noted. No ductal dilation. Pancreas: Unremarkable. No ductal dilation. Spleen: Unremarkable. No splenomegaly. Adrenals: Unremarkable. No mass. Kidneys and ureters: Unremarkable. No obstructing stones. No hydronephrosis. Stomach and bowel: Unremarkable. No obstruction. No mucosal thickening. PELVIS: Appendix: The appendix is normal. No free air. No abscess. Bladder: Unremarkable. No stones. Reproductive: Unremarkable as visualized. ABDOMEN and PELVIS: Intraperitoneal space: See above. Bones/joints: There are scattered aortic and iliac artery arthritic calcifications. No aneurysm. There is mild grade 1 anterolisthesis at L4-5 secondary to facet arthrosis. There is multilevel thoracolumbar degenerative disc disease. No fracture. No destructive osseous abnormalities. No dislocation. Soft tissues: Unremarkable. Vasculature: See above. Lymph nodes: Unremarkable. No enlarged lymph nodes. IMPRESSION: Cholelithiasis without evidence of acute cholecystitis. Electronically signed by: Nadir Collado MD 09/10/24 00:01 AM
[2024-09-10] MEDS ORDERED: GLUCAGON FOR INJ 1 MG VIAL SQ PRN (01:47)
[2024-09-10] MEDS ORDERED: ALBUTEROL 0.083% NEBU SOLN 3 ML VIAL INH PRN (01:47)
[2024-09-10] MEDS ORDERED: MELATONIN 3 MG TAB PO PRN (01:47)
[2024-09-10] MEDS ORDERED: GLUCOSE 40% GEL 15 GM TUBE PO PRN (01:47)
[2024-09-10] MEDS ORDERED: POLYETHYLENE (MIRALAX) 17 GM PACK PO PRN (01:47)
[2024-09-10] MEDS ORDERED: ACETAMINOPHEN 325 MG TAB PO PRN (01:47)
[2024-09-10] MEDS ORDERED: ONDANSETRON INJ 2 MG/ML 2 ML VIAL IV PRN (01:47)
[2024-09-10] MEDS ORDERED: CARBOHYDRATES FOR HYPOGLYCEMIA PO PRN (01:47)
[2024-09-10] MEDS ORDERED: GLUCOSE 10 TAB/TUBE PO PRN (01:47)
[2024-09-10] MEDS ORDERED: DEXTROSE 50% 50 ML SYRINGE IV PRN (01:47)
[2024-09-10] MEDS: LACTATED RINGER'S 1,000 ML IV SCH (02:20)
[2024-09-10] MEDS: PANTOprazole 40 MG/10 ML SYR IV SCH (02:20)
[2024-09-10 06:59] VITALS: TEMP 98.1
[2024-09-10] MEDS: ASPIRIN 81 MG ECTAB PO SCH (08:34)
[2024-09-10] MEDS: INSULIN ASPART PER UNIT CHARGE SC SCH (08:40)
[2024-09-10] MEDS: LANTUS PER UNIT CHARGE SQ SCH (08:40)
[2024-09-10 08:53] LABS: Hematocrit (blood only) 47.1 % (37.0-47.0); Hemoglobin 15.2 g/dl (12.0-16.0); Immature Granulocytes # (auto) 0.03 K/uL (0.01-0.20); Immature Granulocytes % (auto) 0.3 %; Mean Corpuscular Hemoglobin 25.7 pg (25.0-34.0); Mean Corpuscular Volume 79.7 fL (80.0-100.0); Platelet Count 282 K/uL (130-400); RDW Standard Deviation 42.1 fL (36.4-46.3); Red Blood Count 5.91 M/uL (4.20-5.40); White Blood Count 9.56 K/ul (4.8-10.8)
[2024-09-10 09:01] LABS: Hemoglobin A1C 8.3 % (4.5-5.6)
[2024-09-10 09:04] LABS: Alanine Aminotransferase 16.0 U/L (7-52); Albumin Globulin Ratio 1.1 (0.9-2); Albumin Level 3.7 gm/dl (3.4-5.0); Alkaline Phosphatase 88.0 U/L (34-104); Anion Gap 5.0 (3-11); Bilirubin,Total 0.5 mg/dl (0.2-1.0); Blood Urea Nitrogen 13.0 mg/dl (6-23); Calcium 9.6 mg/dl (8.6-10.3); Carbon Dioxide 31.0 mmol/L (21-32); Chloride 105.0 mmol/L (98-107); Creatinine Clr Calc Pharmacy 85.1 ml/min; Globulin 3.5 gm/dl (2.5-4.0); Glucose 100.0 mg/dl (70-99(Fasting)); Potassium 3.6 mmol/L (3.5-5.1); Sodium 141.0 mmol/L (136-145); Total Protein 7.2 gm/dl (6.0-8.3)
--- NOTE | 2024-09-10 10:18 | Hospitalist Progress Note ---
Date of Service September 10, 2024 Assessment & Plan (1) Nausea & vomiting: (2) Type 2 diabetes mellitus: (3) Hypertension: (4) History of CVA (cerebrovascular accident): Plan Pt is a 54 yo female with a past med hx of DMT2 on insulin, HTN, HLD, cardiomyopathy, depression, hyperparathyroidism, and current smoker <1 ppd who presents to the hospital on 09/09 for the third time in 2 days for intractable nausea and vomiting. Initially presented with these symptoms on 09/08 and was admitted but signed out AMA shortly after admission. She returned to the ED the same day for the same symptoms and was recommended for admission but refused. She took oral antibiotics for UTI but continued to vomit while taking these. Came back on 09/09 and was agreeable for admission at that time. She is irritable and argumentative about her care with staff members. #Intractable nausea/vomiting - suspect viral gastroenteritis vs UTI as cause of N/V, although question sporadic use of ozempic may be contributing - not having overt urinary symptoms but is tender over the bladder on admission - CT abd/pelvis w/o con done; cholelithiasis but no sign of acute cholecystitis - urine cx from 09/08; e coli, will continue CTX (had been discharged with cefdinir but also cipro but noted issues with taking this due to N/V and confusion around these) - zofran IV prn - tolerating clear liquid diet. Can advance to full liquids for dinner and regular diet for breakfast 09/11 if tolerating diet advancements - IVF 125/hr - protonix 40 mg IV BID #DMT2 on insulin - home regime; 68 units am, Humalog 15 units with meals, Ozempic - last dose of Ozempic 2 weeks ago - A1c 8.3% - will defer adjustments to outpatient regimen to PCP - Continue Lantus 25 units BID and SSI with meals #HTN - Initially held outpatient blood pressure meds as patient reported she is unsure if she is taking them. Now stating that she does take them at home - Resumed Amlodipine 5 mg HS and carvedilol 6.25 mg BID #Hx CVA - pt noted on admission 2 days ago that she is no longer taking plavix since it is not covered by insurance, will continue her ASA #Asthma - Continue home inhalers. VTE: low risk; SCDs and ambulate as tolerated Dispo: Anticipate discharge home in next 24-48 hours pending urine culture results and diet advancement Advanced diet Started Amlodipine and carvedilol Admission and Anticipated Discharge Date Admission Date: September 10, 2024 Subjective Patient seen and evaluated at bedside. She is very irritable and argumentative with myself and her RN. She reports frustration with "constant interruptions, no treatments, and bad food." We discussed her current treatment plan of IV antibiotics, IV fluids, diet advancement, and monitoring her urine culture. She is tolerating her clear liquids and has not had further vomiting. We discussed advancing to full liquids later today and regular breakfast tomorrow if she continues to tolerate it. She denies abdominal pain or diarrhea. She denies urinary symptoms. I offered Bridget a nicotine patch, which she declined. No additional complaints or concerns at this time. Updated by RN in evening that patient has been very uncooperative with her care today. She removed her IV fluids, took unknown medication from her purse, had to have security come retrieve those medications to send to pharmacy, attempted to leave the floor, security was called to escort her back to her room, multiple requests to leave AMA but continued to stay inpatient despite being given the AMA form to sign. She is verbally aggressive towards her RN and other staff members. She demanded to leave the hospital, was given AMA paperwork to sign and her RN was going to remove her IV site, but then she stated she did not want to leave. Physical Exam 2 Physical Exam: General: No acute distress, nondiaphoretic, well-developed, well-nourished. Irritable and argumentative. Skin: Warm, dry. No rashes or peripheral edema noted. Cardiac: Regular rate and rhythm without murmurs gallops or rubs. Pulm: Clear to auscultation bilaterally without wheezes, rales or rhonchi. Normal respiratory effort. 92% on room air. Abdominal: Soft, nontender, nondistended. No suprapubic tenderness. Bowel sounds present. Neuro: A&O x3. No focal neurological deficits. Results & Data Results & Data Vital Signs (Past 12 Hours) Vital Signs Temp Pulse Pulse Resp BP BP Pulse Ox 09/10/24 06:58 98.1 F 75 16 165/77 H 92 09/10/24 01:56 09/10/24 01:56 98.6 F 94 H 18 176/97 H 94 09/10/24 01:27 09/10/24 00:30 105 H 24 139/81 09/10/24 00:00 92 H 19 156/87 H 96 09/09/24 23:00 103 H 24 160/90 H 96 09/09/24 22:30 101 H 19 158/72 H 96 O2 Del Method 09/10/24 06:58 Room Air 09/10/24 01:56 Room Air 09/10/24 01:56 Room Air 09/10/24 01:27 Room Air 09/10/24 00:30 09/10/24 00:00 Room Air 09/09/24 23:00 Room Air 09/09/24 22:30 Room Air Laboratory Results Reviewed CBC with differential Reviewed CMP, chemistries Reviewed urine culture Diagnostic Findings Reviewed CT A/P PG Care Time/CCT Total # of Minutes Spent Total Time Spent with Patient: Total time spent is greater than 50% in coordination of care (as documented) at patient's floor/unit and/or counseling patient: Coding Level of Care Code 15227 SUB INP/OBS CARE 3/50MIN Diagnoses Nausea & vomiting R11.2 Type 2 diabetes mellitus with diabetic microalbuminuria, without long-term current use of insulin E11.29; R80.9 Diabetes mellitus complication detail: with diabetic microalbuminuria Diabetes mellitus complication status: with kidney complications Diabetes mellitus joint terminal attack controller insulin use: without half-way use Primary hypertension I10 Hypertension type: primary hypertension History of CVA (cerebrovascular accident) Z86.73 (2) Type 2 diabetes mellitus Diabetes mellitus complication detail: with diabetic microalbuminuria Diabetes mellitus complication status: with kidney complications Diabetes mellitus joint terminal attack controller insulin use: without half-way use Qualified Code(s): E11.29 - Type 2 diabetes mellitus with other diabetic kidney complication; R80.9 - Proteinuria, unspecified (3) Hypertension Hypertension type: primary hypertension Qualified Code(s): I10 - Essential (primary) hypertension
[2024-09-10 15:09] VITALS: RESP 20; O2SAT 96
[2024-09-10] MEDS: IBUPROFEN 200 MG TAB PO PRN (15:09)
[2024-09-10 17:47] VITALS: BP 181/95; PULSE 80
--- NOTE | 2024-09-10 19:05 | Discharge Summary ---
Discharge Summary Date of Service September 10, 2024 Principal Dx & Hospital Course #1 = Principal Diagnosis (1) Nausea & vomiting: (2) Type 2 diabetes mellitus: (3) Hypertension: (4) History of CVA (cerebrovascular accident): Plan Pt is a 54 yo female with a past med hx of DMT2 on insulin, HTN, HLD, cardiomyopathy, depression, hyperparathyroidism, and current smoker <1 ppd who presents to the hospital on 09/09 for the third time in 2 days for intractable nausea and vomiting. Initially presented with these symptoms on 09/08 and was admitted but signed out AMA shortly after admission. She returned to the ED the same day for the same symptoms and was recommended for admission but refused. She took oral antibiotics for UTI but continued to vomit while taking these. Came back on 09/09 and was agreeable for admission at that time. She was agitated and argumentative throughout her admission. During this admission, she was uncooperative with her care and verbally aggressive towards staff members. Security was called twice; once for taking unknown medications from her purse and security confiscating those medications to send down to pharmacy, and the second time due to eloping from the floor then refusing to leave the elevator so security had to escort her back to her room. She verbalized many frustrations while admitted; explained numerous times why she was in the hospital and what her treatment plan was. She was educated several times on the risks associated with leaving AMA - including worsening of her symptoms, electrolyte derangements, sepsis, and . She attempted to remove her IV site herself, RN completed IV site removal, she refused to sign the AMA paperwork and left with security to retrieve the medications from her purse. #Intractable nausea/vomiting - suspect viral gastroenteritis vs UTI as cause of N/V, although sporadic use of Ozempic may also be contributing - Not having overt urinary symptoms but is tender over the bladder on admission - CT abd/pelvis w/o con done; cholelithiasis but no sign of acute cholecystitis - Treated empirically with Ceftriaxone while admitted - Urine cx from 09/08 grew E coli with resistance to fluoroquinolones. Upon discharge from ED on 09/08, she was prescribed Cefdinir which is sensitive for her UTI - She tolerated her clear liquid diet without further episodes of vomiting. She left AMA prior to trial of further diet advancements #DMT2 on insulin - home regime; 68 units am, Humalog 15 units with meals, Ozempic. Last dose of Ozempic 2 weeks ago - A1c 8.3% - will defer adjustments to outpatient regimen to PCP #HTN - Initially held outpatient blood pressure meds as patient reported she is unsure if she is taking them. Now stating that she does take them at home - Resumed Amlodipine 5 mg HS and carvedilol 6.25 mg BID #Hx CVA - pt noted on admission 2 days ago that she is no longer taking Plavix since it is not covered by insurance, will continue her ASA #Asthma - Continue home inhalers Dispo: Left AMA 09/10 Notes For Next Care Provider Second time leaving AMA since 09/08. She was uncooperative with her care and treatment while admitted, also verbally aggressive to numerous staff members. Recommend clear medication reconciliation as patient seems to be unclear as to her home medications. Recommend further diabetic regimen adjustments given her A1c of 8.3%. Medication Changes From Visit Left AMA prior to DC able to be completed. She was discharged from the ED on 09/08 with Cefdinir for UTI which grew E. coli, sensitive to cephalosporins - she can continue this Admission HPI Per Admitting Provider Pt is a 54 yo female with a past med hx of DMT2 on insulin, HTN, HLD, cardiomyopathy, depression, hyperparathyroidism, and current smoker <1 ppd who presents to the hospital on 09/09 for the third time in 2 days for intractable nausea and vomiting. Pt states symptoms started on Sunday with sudden onset of nonbloody vomiting. She states that symptoms continued throughout the weekend, prompting her to come in on Sunday to the ER due to concerns that the recurrent vomiting was going to or had already made her quite dehydrated. Pt states she has not had any diarrhea, last BM was days ago and she is usually quite regular but has had poor intake the last few days due to vomiting. No abdominal pain or dysuria. She does not have a hx of passing kidney stones but states she had an MRI for her back recently which showed a stone in the kidney. She states even sips of nanci elsie make her very nauseated but since she has been here she has been eating potato chips and crackers. She was admitted Sunday and left AMA a few hours later. She returned again Sunday evening for continued symptoms and then returned to the ER again Sunday evening for continued symptoms. Still denies abdominal pain. No chest pain or SOB. She smoked <1ppd. Does not want nicotine patch. Denies marijuana or other drug use. Denies alcohol use. Water source is well water, she uses filters in her home and believes they are working fine. No diarrhea. Lives with disabled son, who is not sick. No recent travel outside the country. She denies recent medication changes but does admit spotty compliance with her ozempic. She states she was titrated up on this and got significant GI distress so was titrated back down but does sometimes miss or skip doses. Last dose was 2 weeks ago. Discharge Exam Left AMA prior to evaluation and discharge. Discharge Plan Discharge Items Patient Disposition: Against Medical Advice Reason For Visit: NAUSEA AND VOMITING Condition on Discharge: Fair Activity: Resume your previous activity Non-emergency contact: Primary Care Provider Follow-up/Referrals: Alem Cantu DO [Primary Care Provider] - (Follow-up within 1 week) Pending Studies at Discharge: Yes (urine culture from this admission) Medications and DC Order Prescriptions: Continued (DME) blood sugar diagnostic Strip See Dose Instructions .ROUTE .MEDSUPPLY Qty: 300 3RF Dose Instruction: As directed Rx Instructions: Testing BS QID. albuterol sulfate 2.5 mg /3 mL (0.083 %) solution for nebulization 2.5 mg INH Q4H PRN (Reason: shortness of breath or wheezing) Qty: 1080 1RF furosemide 40 mg tablet 40 mg PO DAILY PRN (Reason: weight gain) Qty: 30 5RF Rx Instructions: Take 1 tablet daily as needed for sudden weight gain, fluid retention, or shortness of breath. (DME) OneTouch Ultra Test Strip See Rx Instructions .Route Qty: 100 3RF Rx Instructions: Testing blood sugar four times daily aspirin [Adult Aspirin Regimen] 81 mg tablet,delayed release (DR/EC) 81 mg PO DAILY Qty: 90 3RF Ozempic 0.25 mg or 0.5 mg (2 mg/3 mL) pen injector 0.5 mg subcut Q7D Qty: 3 4RF Hold Instructions: Provider's Order Rx Instructions: PER PT "LOST INSURANCE, HAVEN'T TAKEN FOR SOME TIME". (DME) Dexcom G7 Sensor Device See Rx Instructions .Route Qty: 12 1RF Rx Instructions: change sensor every 7 days amlodipine 5 mg tablet 5 mg PO HS Qty: 90 3RF Hold Instructions: Provider's Order Rx Instructions: PT UNSURE IF STILL TAKING THIS MED, UNABLE TO VERIFY (DME) pen needle, diabetic [BD Camryn 2nd Gen Pen Needle] 32 gauge x " nee dle See Dose Instructions .ROUTE .MEDSUPPLY Qty: 200 5RF Rx Instructions: 4 needles per day ezetimibe 10 mg tablet 10 mg PO DAILY Qty: 90 2RF Hold Instructions: Provider's Order Rx Instructions: PER PT "UNSURE IF STILL TAKING THIS MED". UNABLE TO VERIFY albuterol sulfate 90 mcg/actuation HFA aerosol inhaler 2 puff Inhalation Q4 PRN (Reason: Shortness Of Breath Or Wheezing) Qty: 18 2RF ondansetron HCl 4 mg tablet 4 mg PO DAILY Qty: 30 0RF ondansetron 4 mg tablet,disintegrating 4 mg PO Q8H PRN (Reason: nausea and vomiting) 5 Days Qty: 14 0RF cefdinir 300 mg capsule 300 mg PO Q12H 5 Days Qty: 10 0RF cholecalciferol (vitamin D3) [Vitamin D3] 50 mcg (2,000 unit) Capsule 50 mcg PO DAILY carvedilol 6.25 mg tablet 6.25 mg PO BID Hold Instructions: Provider's Order Rx Instructions: PER PT "LOST INSURANCE, HAVEN'T TAKEN FOR SOME TIME". hydrocortisone 2.5 % cream 1 applic topical BID PRN (Reason: Skin Irritation) Rx Instructions: Apply to areas of the axilla and groin (skin folds) twice daily x 2 weeks as directed. epinephrine [EpiPen 2-Jer] 0.3 mg/0.3 mL auto-injector 0.3 mg IM DIRECTED PRN (Reason: anaphylaxis) Rx Instructions: for 2 doses insulin lispro [Humalog KwikPen Insulin] 100 unit/mL insulin pen 15 unit subcut TIDM MDD 60 UNITS/DAILY Rx Instructions: TDD 60 units insulin glargine [Lantus Solostar U-100 Insulin] 100 unit/mL (3 mL) insulin pen 68 unit subcut QAM Held clopidogrel [Plavix] 75 mg tablet 75 mg PO DAILY Qty: 90 1RF Hold Instructions: Provider's Order: patient reports she no longer takes Rx Instructions: PER PT "LOST INSURANCE, HAVEN'T TAKEN FOR SOME TIME". Discontinued ciprofloxacin HCl [Cipro] 250 mg tablet 250 mg PO Q12H Qty: 6 0RF Discharge Orders: Left Against Medical Advice (Routine); Ordered 09/10/24 Ordered By: Trisha Fleming/Other Patient Handouts: A1C, Managing Type 2 Diabetes Admission Data Admit Date/Time: 09/10/24 00:47 Attending Provider: Babak Sands Admit Provider: Kavay Garcia Primary Care Provider: Alem Cantu Other Providers: Justin [facility] Stay Data Consultations 09/09/24 21:59 ED Decision to Admit Stat Diagnostic Imagining Performed Abdomen/Pelvis CT 09/09/24 23:00 Exam(s): CT ABDOMEN + PELVIS Without Contrast EXAM: CT Abdomen and Pelvis Without Intravenous Contrast CLINICAL HISTORY: Reason for exam: N/V, hx kidney stone. TECHNIQUE: Axial computed tomography images of the abdomen and pelvis without intravenous contrast. CTDI is 28.02 mGy and DLP is 155.3 mGy-cm. Automated exposure control was utilized for the study. A dose lowering technique was utilized adhering to the principles of ALARA. COMPARISON: CT abdomen and pelvis: 08/13/2013 FINDINGS: Lung bases: Unremarkable. No mass. No consolidation. Heart: There are scattered coronary artery calcifications. ABDOMEN: Liver: Unremarkable. Gallbladder and bile ducts: There are numerous intraluminal gallstones. No pericholecystic inflammatory changes are noted. No ductal dilation. Pancreas: Unremarkable. No ductal dilation. Spleen: Unremarkable. No splenomegaly. Adrenals: Unremarkable. No mass. Kidneys and ureters: Unremarkable. No obstructing stones. No hydronephrosis. Stomach and bowel: Unremarkable. No obstruction. No mucosal thickening. PELVIS: Appendix: The appendix is normal. No free air. No abscess. Bladder: Unremarkable. No stones. Reproductive: Unremarkable as visualized. ABDOMEN and PELVIS: Intraperitoneal space: See above. Bones/joints: There are scattered aortic and iliac artery arthritic calcifications. No aneurysm. There is mild grade 1 anterolisthesis at L4-5 secondary to facet arthrosis. There is multilevel thoracolumbar degenerative disc disease. No fracture. No destructive osseous abnormalities. No dislocation. Soft tissues: Unremarkable. Vasculature: See above. Lymph nodes: Unremarkable. No enlarged lymph nodes. IMPRESSION: Cholelithiasis without evidence of acute cholecystitis. Electronically signed by: Nadir Collado MD 09/10/24 00:01 AM Total Time Total Time Spent Total Time Spent (In Minutes): Greater than 30 minutes spent completing this discharge process including direct patient care, medication reconciliation, documentation, review of labs and images, and coordination of care. Coding Level of Care Code 03552 INP/OBS DISCH >30 MIN Diagnoses Nausea & vomiting R11.2 Type 2 diabetes mellitus with diabetic microalbuminuria, without long-term current use of insulin E11.29; R80.9 Diabetes mellitus complication detail: with diabetic microalbuminuria Diabetes mellitus complication status: with kidney complications Diabetes mellitus correction insulin use: without correction use Primary hypertension I10 Hypertension type: primary hypertension History of CVA (cerebrovascular accident) Z86.73
[2024-09-10] MEDS ORDERED: cefTRIAXone SODIUM 2,000 MG/50 ML BAG IV SCH (22:00)
--- NOTE | 2024-09-16 17:18 | Billing Data ---
Date of Service September 09, 2024 Coding Level of Care Code 98041 INT INP/OBS CARE
== END 2024-09-10 18:29 | disposition left against medical advice (07) | DRG 392 ==
LOC: ED 20:45 → INTOOBSV 09-10 00:47 → SUATTDRO 09-10 00:47 → 3N 09-10 00:47